=== PATIENT | male | born 1980 | race Two or more races ===

== ENCOUNTER 2019-09-23 13:15 | Emergency (ER) | payer OTHER ==
[~2019-09-23] VITALS: Ht 177.8 cm; Wt 78.0 kg
[2019-09-23 14:01] VITALS: BP 172/124
--- NOTE | 2019-09-23 15:07 | NUR ---
Patient does not wish to proceed with medical care recommended by ( ). Patient given information related to possible complications, up to and including , which could occur as a result of leaving the hospital at this time. Patient verbalizes understanding of risks involved due to leaving against medical advice. Patient has signed AMA form.
== END 2019-09-23 15:08 | disposition left against medical advice (07) ==
LOC: ER 13:19
DX: R18.8 Other ascites (principal); I12.0 Hypertensive chronic kidney disease with stage 5 chronic kidney disease or end stage renal disease; N18.6 End stage renal disease; Z99.2 Dependence on renal dialysis

== ENCOUNTER 2020-04-19 15:34 | Inpatient (IN) | payer MEDICAID, OTHER ==
[~2020-04-19] VITALS: Ht 175.3 cm; Wt 75.9 kg
[2020-04-19] MEDS ORDERED: MORPHINE SULFATE INJ 4 MG/ML DISP.SYRIN ONE ×2 (16:16→18:23)
[2020-04-19] MEDS ORDERED: ONDANSETRON HCL/PF 4 MG/2 ML VIAL ONE ×2 (16:16→18:23)
[2020-04-19] MEDS ORDERED: MORPHINE SULFATE INJ 2 MG/ML DISP.SYRIN IV ONE ×2 (16:30→18:30)
[2020-04-19] MEDS ORDERED: ONDANSETRON HCL/PF 4 MG/2 ML VIAL IVP ONE (16:30)
[2020-04-19 17:32] LABS: ALBUMIN 3.3 g/dL (3.4-5.0); BILIRUBIN,DIRECT 0.3 mg/dL (0.0-0.2); BILIRUBIN,TOTAL 0.8 mg/dL (0.2-1.0); CALCIUM, SERUM 8.9 mg/dL (8.5-10.1); CREATININE 6.6 mg/dL (0.6-1.3); POTASSIUM 3.7 mmol/L (3.5-5.1); TOTAL PROTEIN, SERUM 7.2 g/dL (6.4-8.2)
[2020-04-19] MEDS ORDERED: LOSA100T31 PO (17:59)
[2020-04-19] MEDS ORDERED: HYDR-3972 PO (17:59)
[2020-04-19] MEDS ORDERED: CARV25TA2 PO (17:59)
[2020-04-19 18:14] LABS: BASOPHILS % (AUTO) 0.7 % (0.0-2.0); EOSINOPHILS % (AUTO) 1.9 % (0.0-6.0); HEMATOCRIT 36 % (39-51); HEMOGLOBIN 11.8 g/dL (13.5-17.5); LYMPHOCYTES # (AUTO) 0.2 /CMM (0.8-4.8); LYMPHOCYTES % (AUTO) 22.6 % (20.0-44.0); MEAN CORPUSCULAR HGB CONC 33 g/dl (31.0-36.0); MEAN CORPUSCULAR VOLUME 91 fL (80-96); MONOCYTES # (AUTO) 0.1 /CMM (0.1-1.30); MONOCYTES % (AUTO) 8.8 % (2.0-12.0); NEUTROPHILS # (AUTO) 0.6 /CMM (1.8-8.9); PLATELET COUNT (AUTO) 168 /CMM (150-450)
[2020-04-19] MEDS ORDERED: METRONIDAZOLE 500MG/ NS 100ML 100 ML IV ONE (18:23)
[2020-04-19 18:25] LABS: LYMPHOCYTES % (MANUAL) 30 % (16-48); NEUTROPHILS % (MANUAL) 62 (42-76); WHITE BLOOD COUNT (AUTO) 0.8 K/uL (4.3-11.0)
[2020-04-19 18:26] LABS: EOSINOPHILS % (MANUAL) 2 % (0-4); MONOCYTES % (MANUAL) 6 % (0-11.0)
[2020-04-19] MEDS ORDERED: ONDANSETRON HCL/PF 4 MG/2 ML VIAL IV ONE (18:30)
[2020-04-19] MEDS ORDERED: FLAGYL/NS RTU 500 MG/100 ML PIGGYBACK IV ONE (18:30)
[2020-04-19] MEDS ORDERED: LEVOFLOXACIN 750 MG /D5W 150ML PIGGYBACK IV ONE (18:30)
--- NOTE | 2020-04-19 18:32 | NUR ---
PAGED DR. CATHERINE DUBON.
--- NOTE | 2020-04-19 19:19 | NUR ---
Nurse Knowledge Exchange W/VENKAT Patterson
--- NOTE | 2020-04-19 19:28 | NUR ---
PT STATED HE IS AMBULATORY BUT IS UNABLE TO AMBULATE NOW DUE TO HIS PAIN (ABD PAIN.) PT ON 4L NC SAT 99%. NO ACUTE DISTRESS NOTED. COVID SWAB SENT TO LAB.
[2020-04-19] MEDS ORDERED: LEVOFLOXACIN 750 MG /D5W 150ML 150 ML IV ONE (19:30)
--- NOTE | 2020-04-19 19:49 | NUR ---
PT STATED HE IS STILL IN PAIN AND REQUESTED PAIN MED. AWARE. AWAITING ORDER.
[2020-04-19] MEDS ORDERED: HYDROCODONE/APAP 5/325MG 1 EACH TABLET ONE (19:50)
[2020-04-19] MEDS ORDERED: HYDROCODONE/APAP 5/325MG 1 EACH TABLET PO ONE (20:00)
--- NOTE | 2020-04-19 20:30 | NUR ---
REC'D NEG COVID RESULTS FROM LAB. AWARE
--- NOTE | 2020-04-19 20:36 | NUR ---
BED ASSIGNMENT TELE 321-2
--- NOTE | 2020-04-19 21:01 | NUR ---
REPORT GIVEN FOR SUE
--- NOTE | 2020-04-19 21:16 | NUR ---
PT TRANSFERED PER ACLS PROTOCOL
[2020-04-19 21:40] VITALS: BP_SYST 117; BP_SYST 133; BP_DIAS 51; BP_DIAS 81
[2020-04-19] MEDS ORDERED: HYDROCODONE/APAP 5/325MG 1 EACH TABLET PO PRN (22:00)
--- NOTE | 2020-04-19 22:50 | NUR ---
tele infrastructure analyst initial notes. admit pt from ER via gurney accompanied by ER nurse and tech. Pt is alert oriented, ambulatory , not in any distress noted at this time. DX of Ascites. abdomen distended noted , no n/v . ER nurse told me pt had zofran and norco given . Pt aware where he at and how to used the call light system. Sinus rhythm on tele monitor. Kept him warm and comfortable at all times. will continue monitoring. place call light at reach. Side rails x2 up and bed in low and lock in position.
[2020-04-20] VITALS: BP 135/98
[2020-04-20] MEDS ORDERED: VANCOMYCIN 1 GM in IV D5W 250ml IV ONE (02:00)
[2020-04-20] MEDS ORDERED: MICAFUNGIN SODIUM 100 MG VIAL IV ONE (02:44)
[2020-04-20] MEDS ORDERED: CEFTRIAXONE 1 G VIAL ONE ×2 (02:45→02:49)
[2020-04-20] MEDS ORDERED: VANCOMYCIN 1 GM VIAL ONE (02:45)
[2020-04-20] MEDS: CEFTRIAXONE 2 G in IV D5W 100 ML IV SCH ×2 (02:57→03:17)
[2020-04-20 04:00] VITALS: BP 126/81
[2020-04-20] MEDS: MORPHINE SULFATE INJ 2 MG/ML DISP.SYRIN IV PRN ×3 (04:21→19:54)
[2020-04-20] MEDS: MICAFUNGIN SODIUM 100 MG in IV NS 0.9% 100 ML IV SCH (05:39)
--- NOTE | 2020-04-20 07:13 | NUR ---
INTERNATIONAL REPRESENTATIVE NOTES RECEIVED PATIENT IN BED ALERT AND AWAKE ORIENTED X4. HOB ELEVATED. ON O2 AT 5L/MIN VIA NC TO WELL. ON TELE MONITORING SR: 89. RIGHT WRIST # 20 SL INTACT AND PATENT. BED IN LOWEST POSITION, LOCKED. CALL LIGHT WITHIN REACH. ABLE TO VERBALIZE NEEDS.
[2020-04-20 07:45] LABS: CREATININE 4.7 mg/dL (0.6-1.3)
[2020-04-20] MEDS ORDERED: FEE PK DOSING 1 MIN EA MC ONE (07:47)
[2020-04-20 07:53] LABS: CALCIUM, SERUM 5.1 mg/dL (8.5-10.1); POTASSIUM 2.7 mmol/L (3.5-5.1)
[2020-04-20 07:56] LABS: BASOPHILS % (AUTO) 0.1 % (0.0-2.0); EOSINOPHILS % (AUTO) 0.3 % (0.0-6.0); HEMATOCRIT 24 % (39-51); HEMOGLOBIN 7.8 g/dL (13.5-17.5); LYMPHOCYTES # (AUTO) 0.3 /CMM (0.8-4.8); LYMPHOCYTES % (AUTO) 8.4 % (20.0-44.0); MEAN CORPUSCULAR HGB CONC 33 g/dl (31.0-36.0); MEAN CORPUSCULAR VOLUME 94 fL (80-96); MONOCYTES # (AUTO) 0.3 /CMM (0.1-1.30); MONOCYTES % (AUTO) 6.5 % (2.0-12.0); NEUTROPHILS # (AUTO) 3.4 /CMM (1.8-8.9); NEUTROPHILS % (AUTO) 84.7 % (43.0-81.0); PLATELET COUNT (AUTO) 106 /CMM (150-450); RED BLOOD CELL COUNT(AUTO) 2.53 MIL/uL (4.5-6.0)
[2020-04-20] MEDS: POTASSIUM CHLORIDE 20 MEQ TAB.PRT.SR PO ONE ×2 (08:15→08:32)
[2020-04-20] MEDS: LOSARTAN POTASSIUM 50 MG TABLET PO SCH (08:16)
[2020-04-20] MEDS: CARVEDILOL 12.5 MG TABLET PO SCH ×2 (08:16→21:00)
[2020-04-20] MEDS: HYDROCODONE/APAP 5/325MG 1 EACH TABLET PO PRN ×3 (08:17→15:26)
--- NOTE | 2020-04-20 08:24 | NUR ---
MS RN NOTES PATIENT SPIT OUT POTASSIUM CHLORIDE TABLET. PATIENT STATED HE DOESN'T WANT IT. OFFERED PATIENT TO HAVE IT CRUSHED AND OR MIXED WITH APPLE SAUCE, JELLO OR PUDDING BUT PATIENT REFUSED. Chai RAMIREZ AT BEDSIDE ALSO OFFERED TO MIX IT WITH WATER BUT PATIENT STRONGLY REFUSED. PER DR. ALEXANDER HE WILL FIX IT WITH DIALYSIS.
[2020-04-20] MEDS ORDERED: VANCOMYCIN 500 MG in IV D5W 100 ML IV PRN (08:30)
[2020-04-20] MEDS ORDERED: CARVEDILOL 25 MG TABLET PO SCH (09:00)
--- NOTE | 2020-04-20 09:06 | NUR ---
VEGETABLE THINNER NOTES PATIENT REMAINS COMFORTABLE, SITTING UP IN BED PLAYING GAMES ON HIS CP.
[2020-04-20 09:31] VITALS: BP 122/71
[2020-04-20 09:34] LABS: CALCIUM, SERUM 8.8 mg/dL (8.5-10.1); POTASSIUM 4.5 mmol/L (3.5-5.1)
[2020-04-20 09:36] LABS: CREATININE 8.1 mg/dL (0.6-1.3)
[2020-04-20] MEDS ORDERED: EPOETIN ALFA (10,000 UNIT) 10,000 UNIT/ML VIAL IV ONE (11:00)
[2020-04-20 13:11] LABS: BAND % (MANUAL) 19 % (0.0-5.0); LYMPHOCYTES % (MANUAL) 7 % (16-48); MONOCYTES % (MANUAL) 3 % (0-11.0); MYELOCYTES % 1 % (0-0); NEUTROPHILS % (MANUAL) 70 (42-76)
--- NOTE | 2020-04-20 15:06 | NUR ---
RETREAD BUILDER NOTES PATIENT S/P US GUIDED THORACENTESIS TO RT CHEST 1400ML FLUID OUT. S/P US GUIDED PARACENTESIS TO LLQ ABD 2000ML OUTPUT. SPECIMEN SENT TO LAB.
[2020-04-20] MEDS ORDERED: FILGRASTIM (480 MCG) 480 MCG/1.6 ML VIAL SQ ONE (16:00)
[2020-04-20 16:15] VITALS: BP 112/79
--- NOTE | 2020-04-20 18:27 | NUR ---
DIRECTOR LONG TERM CARE NOTES PATIENT RECEIVING HD AT THIS TIME.
--- NOTE | 2020-04-20 18:31 | NUR ---
GENERAL UTILITY MAINTENANCE REPAIRER NOTES PATIENT CURRENTLY RECEIVING DIALYSIS. NO S/S OF RESPIRATORY DISTRESS. HOB ELEVATED. ON O2 AT 3L/MIN VIA NC WITH SPO2 OF 98%. DENIES ANY C/O PAIN NOR DISCOMFORT AT THIS TIME. LEFT ARM AV FISTULA WITH GOOD BRUIT/THRILL. AMBULATORY WITH STEADY GAIT. PER PAIENT, CAN BREATH A LITTLE BETTER BUT PAIN IS STILL THERE ON HIS ABDOMEN. INSTRUCTED PATIENT TO LOSSEN UP BELT AND REMOVE JEANS AND BOXER DUE TO CONSTRICTION AND GARTER BUT PATIENT STATED IT'S NOT CAUSING IT. BED IN LOWEST POSITION, LOCKED. BED ALARM ON. CALL LIGHT WITHIN REACH. IN NO APPARENT DISTRESS.
[2020-04-20 20:00] VITALS: BP 99/56
--- NOTE | 2020-04-20 20:00 | NUR ---
EDITOR IN CHIEF NEWSPAPER OPENING NOTES RECEIVED PATIENT IN BED, AWAKE, CONSCIOUS, COOPERATIVE, BREATHING AT ROOM AIR, UNLABORED BREATHING, NO SIGNS OF RESPIRATORY DISTRESS, RIGHT HAND #20, AV FISTULA ON LEFT HAND, DIALYSIS ONGOING, COMPLAINS PAIN ON LEFT ABDOMEN, PAIN MED GIVEN, SIDE RAILS UP.
[2020-04-21] VITALS: BP 116/63
[2020-04-21] MEDS: CEFTRIAXONE 2 G in IV D5W 100 ML IV SCH (02:02)
[2020-04-21] MEDS: MICAFUNGIN SODIUM 100 MG in IV NS 0.9% 100 ML IV SCH (03:01)
[2020-04-21] MEDS: HYDROCODONE/APAP 5/325MG 1 EACH TABLET PO PRN ×2 (03:13→09:37)
--- NOTE | 2020-04-21 03:17 | NUR ---
DOPE WORKER NOTES SHICKLEY 5-325 2 TABS GIVEN. BP- 113/74, HR- 98.
--- NOTE | 2020-04-21 03:58 | NUR ---
CLINICAL UNIT COORDINATOR NOTES HEMODIALYSIS OUTPUT IS ZERO. CLEANING ONLY.
[2020-04-21 04:00] VITALS: BP 108/76
--- NOTE | 2020-04-21 06:51 | NUR ---
MEDICAID PLAN COMPLIANCE DIRECTOR CLOSING NOTES ENDORSED PATIENT IN BED, AWAKE, CONSCIOUS, COOPERATIVE, BREATHING AT ROOM AIR, UNLABORED BREATHING, NO SIGNS OF RESPIRATORY DISTRESS, RIGHT HAND #20, NO REDNESS OR INFILTRATION NOTED, AV FISTULA ON LEFT HAND, COMPLAINS PAIN ON LEFT ABDOMEN, PAIN MED GIVEN, SIDE RAILS UP FOR SAFETY, DUE MEDS GIVEN.
--- NOTE | 2020-04-21 07:15 | NUR ---
STUD DRIVER NOTES RECEIVED PATIENT IN BED ALERT AND AWAKE ORIENTED X4. HOB ELEVATED. ON O2 AT 2L/MIN VIA NC TO WELL. ON TELE MONITORING SR: 98. RIGHT WRIST # 20 SL INTACT AND PATENT. BED IN LOWEST POSITION, LOCKED. CALL LIGHT WITHIN REACH. AMBULATORY WITH STABLE GAIT. ABLE TO VERBALIZE NEEDS.
[2020-04-21 08:00] VITALS: BP 116/76
[2020-04-21 08:16] LABS: BASOPHILS % (AUTO) 0.2 % (0.0-2.0); EOSINOPHILS % (AUTO) 0.5 % (0.0-6.0); HEMATOCRIT 30 % (39-51); LYMPHOCYTES # (AUTO) 0.4 /CMM (0.8-4.8); LYMPHOCYTES % (AUTO) 7.8 % (20.0-44.0); MEAN CORPUSCULAR HGB CONC 34 g/dl (31.0-36.0); MEAN CORPUSCULAR VOLUME 93 fL (80-96); MONOCYTES # (AUTO) 0.5 /CMM (0.1-1.30); MONOCYTES % (AUTO) 8.8 % (2.0-12.0); NEUTROPHILS # (AUTO) 4.7 /CMM (1.8-8.9); NEUTROPHILS % (AUTO) 82.7 % (43.0-81.0); PLATELET COUNT (AUTO) 132 /CMM (150-450); RED BLOOD CELL COUNT(AUTO) 3.21 MIL/uL (4.5-6.0); WHITE BLOOD COUNT (AUTO) 5.7 K/uL (4.3-11.0)
[2020-04-21 09:00] VITALS: BP 116/78
[2020-04-21 09:00] LABS: CREATININE 7.1 mg/dL (0.6-1.3); MAGNESIUM 1.9 mg/dL (1.8-2.4); PHOSPHORUS 4.5 mg/dL (2.5-4.9); POTASSIUM 4.5 mmol/L (3.5-5.1)
[2020-04-21] MEDS: LOSARTAN POTASSIUM 50 MG TABLET PO SCH ×2 (09:00→09:38)
[2020-04-21] MEDS: CARVEDILOL 12.5 MG TABLET PO SCH ×2 (09:00→09:38)
--- NOTE | 2020-04-21 10:09 | NUR ---
MS RN NOTES HELD TANIA AND FAB, ANTICIPATING HD.
[2020-04-21] MEDS ORDERED: METOPROLOL TARTRATE 50 MG TABLET PO SCH (12:00)
--- NOTE | 2020-04-21 13:10 | NUR ---
MS RN NOTES PATIENT DOES NOT WANT CT ANGIO DONE DESPITE OF EDUCATION PROVIDED. PER PATIENT, " I JUST WANT MY DIALYSIS AND GO HOME." DR. CUEVAS AND DR. DEL TORO MADE AWARE.
[2020-04-21] MEDS: MORPHINE SULFATE INJ 2 MG/ML DISP.SYRIN IV PRN (15:23)
[2020-04-21] MEDS ORDERED: VANCOMYCIN 1 GM in IV D5W 250 ML IV ONE (16:00)
--- NOTE | 2020-04-21 16:00 | NUR ---
MS RN NOTES PATIENT COMPLETED HD, BLAINE WELL. NO S/S OF COMPLICATIONS. LEFT ARM AV FISTULA WITH GOOD BRUIT/THRILL. DRESSING IN PLACE WITH NO S/S OF BLEEDING. OUTPUT 2000ML.
--- NOTE | 2020-04-21 16:20 | NUR ---
MS RN NOTES PATIENT REFUSED VANCO DESPITE OF EDUCATION GIVEN AND WANTS TO GO HOME.
--- NOTE | 2020-04-21 17:00 | NUR ---
MS RN NOTES PATIENT FOR DISCHARGE. DISCHARGE INSTRUCTIONS AND PACKET GIVEN TO PATIENT. WHILE PROVIDING DISCHARGE INSTRUCTIONS, PATIENT CONTINUED TO PLAY GAMES ON HIS CP. WHEN QUESTIONED PATIENT REGARDING INSTRUCTIONS, PATIENT WAS ABLE TO VERBALIZE UNDERSTANDING OF DISCHARGE INSTRUCTIONS GIVEN AND VERBALIZED THAT HE'S A SMOKER SOMETIMES. IV ACCESS REMOVED WITH CATHETER TIP INTACT. PER PATIENT, HE ALREADY HAS A PRESCRIPTION SCRIPT FOR HIS PAIN MEDS AND WILL GET IT FILLED AT [facility] DUE TO THE AVAILABILITY OF THE MEDICATIONS AT [facility] BUT [facility]. ALL BELONGINGS ACCOUNTED FOR. AMBULATORY WITH STEADY GAIT. PATIENT LEFT IN STABLE CONDITION.
== END 2020-04-21 18:00 | disposition home or self-care (01) ==
LOC: ER 15:37 → TELE 21:01 → MED 04-21 08:42
PROVIDERS: ADMIT Nurse Practitioner Acute Care; ATTEND Hospitalist
PROC: 0W993ZZ Drainage of Right Pleural Cavity, Percutaneous Approach (ICD-10-PCS; principal; 2020-04-20)
PROC: 5A1D70Z Performance of Urinary Filtration, Intermittent, Less than 6 Hours Per Day (ICD-10-PCS; principal; 2020-04-20)
PROC: 0W9G3ZZ Drainage of Peritoneal Cavity, Percutaneous Approach (ICD-10-PCS; principal; 2020-04-20)
DX: K74.60 Unspecified cirrhosis of liver (principal); N18.6 End stage renal disease; I13.2 Hypertensive heart and chronic kidney disease with heart failure and with stage 5 chronic kidney disease, or end stage renal disease; K40.90 Unilateral inguinal hernia, without obstruction or gangrene, not specified as recurrent; R18.8 Other ascites; J90 Pleural effusion, not elsewhere classified; D61.818 Other pancytopenia; D63.1 Anemia in chronic kidney disease; E83.51 Hypocalcemia; E87.6 Hypokalemia; I25.10 Atherosclerotic heart disease of native coronary artery without angina pectoris; I42.9 Cardiomyopathy, unspecified; I31.3 Pericardial effusion (noninflammatory); Z91.14 Patient's other noncompliance with medication regimen; Z99.2 Dependence on renal dialysis; Z91.19 Patient's noncompliance with other medical treatment and regimen; I50.32 Chronic diastolic (congestive) heart failure
CPT/HCPCS: 36415; 71045-TC; 76942-TC; 80048-TC; 80076-TC; 80202-TC; 82140-TC; 83690-TC; 83735-TC; 84100-TC; 85025-TC; 85610-TC; 87081-TC; 87340; 88108-TC; 88305-TC; 88312-TC; 90935-TC; 93307-TC; G0378; J0696; J0885; J1442; J1956; J2248; J2270; J2405; J3370; J7030; J7060

== ENCOUNTER 2020-05-04 21:15 | Inpatient (IN) | payer MEDICAID ==
[~2020-05-04] VITALS: Ht 175.3 cm; Wt 76.7 kg
[~2020-05-04 21:15] MED LIST: CARV25TA2 PO; HYDR-3972 PO; LOSA100T31 PO
[2020-05-04 21:46] LABS: BASOPHILS # (AUTO) 0.1 /CMM (0.0-0.2); BASOPHILS % (AUTO) 0.9 % (0.0-2.0); EOSINOPHILS % (AUTO) 0.9 % (0.0-6.0); HEMATOCRIT 26 % (39-51); HEMOGLOBIN 8.9 g/dL (13.5-17.5); LYMPHOCYTES # (AUTO) 0.8 /CMM (0.8-4.8); LYMPHOCYTES % (AUTO) 8.1 % (20.0-44.0); MEAN CORPUSCULAR HGB CONC 34 g/dl (31.0-36.0); MEAN CORPUSCULAR VOLUME 88 fL (80-96); MONOCYTES # (AUTO) 0.6 /CMM (0.1-1.30); MONOCYTES % (AUTO) 6.4 % (2.0-12.0); NEUTROPHILS # (AUTO) 8.1 /CMM (1.8-8.9); NEUTROPHILS % (AUTO) 83.7 % (43.0-81.0); PLATELET COUNT (AUTO) 262 /CMM (150-450); RED BLOOD CELL COUNT(AUTO) 2.96 MIL/uL (4.5-6.0); WHITE BLOOD COUNT (AUTO) 9.6 K/uL (4.3-11.0)
[2020-05-04] MEDS ORDERED: IV NS 0.9% 1,000 ML BAG IV ONE (22:00)
[2020-05-04] MEDS ORDERED: ONDANSETRON HCL/PF 4 MG/2 ML VIAL IVP ONE (22:00)
[2020-05-04] MEDS ORDERED: MORPHINE SULFATE INJ 2 MG/ML DISP.SYRIN IV ONE (22:00)
[2020-05-04] MEDS ORDERED: ONDANSETRON HCL/PF 4 MG/2 ML VIAL ONE (22:02)
[2020-05-04] MEDS ORDERED: MORPHINE SULFATE INJ 4 MG/ML DISP.SYRIN ONE (22:02)
--- NOTE | 2020-05-04 22:13 | NUR ---
PATIENT CAME TO ER BED 3 C/O MID EPIGASTRIC PAIN AND RIGHT LOWER ABDOMINAL PRESSURE PAIN SINCE LAST WEEK. PATIENT WAS RECENTLY DISCHARGED FROM THE HOSPITAL AFTER A PARACENTESIS PROCEDURE LAST THURSDAY. PATIENT IS AAOX4. NO SOB. BREATHING EVENLY AND UNLABORED ON ROOM AIR. CONNECTED TO MONITOR.
--- NOTE | 2020-05-04 22:16 | NUR ---
PATIENT STATES THAT HE CANNOT PRODUCE URINE.
[2020-05-04] MEDS ORDERED: VANCOMYCIN 1 GM VIAL ONE (22:23)
[2020-05-04] MEDS ORDERED: PIPERACILLIN /TAZOBACTAM 3.375 G VIAL IV ONE (22:23)
[2020-05-04] MEDS ORDERED: VANCOMYCIN 1 GM in IV D5W 250 ML IV ONE (22:30)
[2020-05-04] MEDS ORDERED: PIPERACILLIN /TAZOBACTAM 3.375 G in IV D5W 50 ML IV ONE (22:30)
[2020-05-04] MEDS ORDERED: LIDOCAINE /MPF 1% VIAL 5 ML VIAL ONE (23:10)
--- NOTE | 2020-05-05 00:25 | NUR ---
COVID TEST SAMPLE COLECTED AND SENT TO THE LAB.
[2020-05-05 00:44] LABS: ALBUMIN 2.7 g/dL (3.4-5.0); BILIRUBIN,DIRECT 0.1 mg/dL (0.0-0.2); BILIRUBIN,TOTAL 0.4 mg/dL (0.2-1.0); CALCIUM, SERUM 9.8 mg/dL (8.5-10.1); POTASSIUM 3.3 mmol/L (3.5-5.1); TOTAL PROTEIN, SERUM 7.7 g/dL (6.4-8.2)
[2020-05-05 00:46] LABS: CREATININE 8.8 mg/dL (0.6-1.3)
[2020-05-05] MEDS ORDERED: MORPHINE SULFATE INJ 2 MG/ML DISP.SYRIN IV ONE (01:00)
--- NOTE | 2020-05-05 01:01 | NUR ---
PARACENTESIS FLUID COLLECTED AND SENT TO THE LAB.
[2020-05-05] MEDS ORDERED: MORPHINE SULFATE INJ 4 MG/ML DISP.SYRIN ONE (01:20)
[2020-05-05] MEDS ORDERED: ZOLPIDEM TARTRATE 5 MG TABLET PO PRN (01:30)
[2020-05-05] MEDS ORDERED: MAGNESIUM HYDROXIDE 30 ML UDC PO PRN (01:30)
[2020-05-05] MEDS ORDERED: MAG HYDROX/AL HYDROX/SIMETH 30 ML UDC PO PRN (01:30)
[2020-05-05] MEDS ORDERED: Z GUARD REMEDY 2 OZ OINT TP PRN (01:30)
[2020-05-05] MEDS ORDERED: ONDANSETRON HCL/PF 4 MG/2 ML VIAL IVP PRN (01:30)
[2020-05-05] MEDS ORDERED: ACETAMINOPHEN 325 MG TABLET PO PRN (01:30)
--- NOTE | 2020-05-05 02:02 | NUR ---
NOTIFIED OF HIGH BLOOD PRESSURE. NO MEDICATIONS ORDERED.
--- NOTE | 2020-05-05 02:20 | NUR ---
tele [phone]
--- NOTE | 2020-05-05 02:25 | NUR ---
TRIED CALLING FOR REPORT, STAFF STATES THAT "THE NURSE IS NOT HERE YET, PLEASE CALL BACK IN 5MINUTES."
--- NOTE | 2020-05-05 02:35 | NUR ---
REPORT GIVEN TO MELVIN ROBLEDO FOR SUE.
--- NOTE | 2020-05-05 02:50 | NUR ---
ADMISSION NOTE PATIENT ADMITTED FROM ER FOR DX SEPSIS; ESRD TO [facility] DR. GTZ. NEW ORDERS RECIEVED PT [id number] ORIENTED TO ROOM. PT AMUBLATORY. REPORTS PAIN TO ABD RATED 8/10. PT CC WAS ABD PAIN FOR THE LAST WEEK AFTER RECIVING PARACENTSIS ALMOST A WEEK AGO. BED DOWN LOCKED SRX2 VERBALIZED UNDERSTANDING TO CALL FOR ASSISTANCE NEEDED. ADMISSION ASSESSMENT PERFORED.
--- NOTE | 2020-05-05 02:51 | NUR ---
Rico wright in ED - 05/05/20 at 0301 by ARNALDO REPORT GIVEN TO MELVIN ROLBEDO FOR SUE.
--- NOTE | 2020-05-05 02:51 | NUR ---
PATIENT TAKEN UP TO ASSIGNED ROOM.
[2020-05-05 03:00] VITALS: BP 149/111
[2020-05-05] MEDS: HYDROCODONE/APAP 5/325MG 1 EACH TABLET PO PRN ×2 (03:13→09:04)
--- NOTE | 2020-05-05 03:24 | NUR ---
ASKED DR. GTZ TO CLARIFY MORPHINE ORDER. NEW ORDERS RECIEVED.
[2020-05-05] MEDS: MORPHINE SULFATE INJ 4 MG/ML DISP.SYRIN IV PRN ×4 (07:40→21:40)
[2020-05-05 08:00] VITALS: BP_SYST 150; BP_SYST 156; BP_DIAS 100
[2020-05-05] MEDS ORDERED: FEE PK DOSING 1 MIN EA MC ONE (08:12)
[2020-05-05] MEDS ORDERED: DIATR MEGLU/DIATRIZOATE SODIUM 120 ML BOTTLE (GASTROGRAPHIN) ONE (08:13)
[2020-05-05] MEDS ORDERED: VANCOMYCIN 500 MG in IV D5W 100 ML IV PRN (08:30)
[2020-05-05] MEDS ORDERED: IOHEXOL-300 100 ML VIAL IV ONE (08:41)
[2020-05-05] MEDS ORDERED: IV NS 0.9% 250 ML IV ONE (08:42)
--- NOTE | 2020-05-05 08:58 | NUR ---
PATIENT REFUSED ORAL CONTRAST FOR CT ABDOMEN SCAN. VENKAT WOODRUFF AWARED. CT ABDOMEN WITH IV CONTRAST DONE @0850. DIALYSIS NEEDED TO BE DONE WITHIN 24 HOURS, AND SCHEDULED TODAY PER VENKAT WOODRUFF.
--- NOTE | 2020-05-05 09:45 | NUR ---
CONTACTED DR. CHAND/RADIOLOGIST GAS STATION OPERATOR. PER DR. CHAND THE PROCEDURE WILL BE DONE LATER IN THE AFTERNOON. HE WILL CONTACT PRIOR TO HIS ARRIVING. KACY/RN WAS INFORMED.
[2020-05-05] MEDS ORDERED: HYDROCODONE/APAP 10/325MG 1 EA TABLET PO PRN (10:30)
[2020-05-05] MEDS: LEVOFLOXACIN 250 MG /D5W 50 ML 250 MG in PREMIX 1 EA IV SCH (10:56)
[2020-05-05] MEDS: METRONIDAZOLE 500MG/ NS 100ML 500 MG in PREMIX 1 EA IV SCH ×2 (10:57→17:31)
[2020-05-05] MEDS ORDERED: EPOETIN ALFA (10,000 UNIT) 10,000 UNIT/ML VIAL IV ONE (12:00)
[2020-05-05 16:00] VITALS: BP 146/92
--- NOTE | 2020-05-05 16:11 | NUR ---
RN NOTES-- US GUIDED PARACENTESIS DONE TO LLQ. 725CC OUT. PER DR. CAMARILLO, NO NEED FOR CYTOLOGY.
--- NOTE | 2020-05-05 18:19 | NUR ---
RN END OF SHIFT SUMMARY PT IS A/OX4, AFEBRILE. NON-MONITORED, VSS. TOLERATING RA. RESPIRATIONS ARE EVEN AND UNLABORED, NOT IN ANY ACUTE DISTRESS NOTED. PAIN TO RLQ MANAGED BY MORPHINE 4MG PRN AND NORCO 10/325 PRN. DENIES ANY SOB, N/V. +FLATUS, NO BM DURING SHIFT. PT IS ANURIC. SCHEDULED FOR HD TONIGHT. AV SHUNT TO LEFT ARM. PIV TO RIGHT WRIST TKO. ON IV ABX W/ NO ASE NOTED. ALL NEEDS MET AND RENDERED. SAFETY MEASURES ARE IN PLACE. CALL LIGHT IS LEFT WITHIN REACH. WILL MONITOR AND CONTINUE POC.
[2020-05-05] MEDS: HYDROCODONE/APAP 10/325MG 1 EA TABLET PO PRN (18:48)
--- NOTE | 2020-05-05 19:30 | NUR ---
RN NOTE RECEIVED PT IN BED, AO X4, NO S/SX OF ACUTE DISTRESS AT THIS TIME. PATIENT'S BREATHING IS EVEN AND UNLABORED. SATURATING >95% ON ROOM AIR. NOTED IV SITE ON R WRIST G18, PATENT AND FLUSHING WELL, NO S/S OF INFECTION OR INFILTRATION. NOTED LEFT ARM FISTULA, HEMODIALYSIS ONGOING. NO SKIN ISSUES NOTED, PATIENT AMBULATORY. SAFETY MEASURES IMPLEMENTED PER PROTOCOL. CALL LIGHT WITHIN REACH OF THE PATIENT. WILL CONTINUE TO MONITOR AND REASSESS FOR ANY CHANGES.
[2020-05-05 20:00] VITALS: BP 169/109
--- NOTE | 2020-05-05 20:00 | NUR ---
RN NOTE TELEPHONE CALL RECEIVED FROM MARIA LUISA OF [facility], STATING THEY RECEIVED URINE SPECIMEN BUT DO NOT SEE AN MD ORDER ON FILE. CHECKED AND VERIFIED FROM EMR, ACTIVE ORDER FOR URINALYSIS PROFILE AND URINE CULTURE NOTED. CALLED BACK CLINICAL LAB, SPOKE WITH ANGEL, VERIFIED THAT MARIA LUISA WAS NOW ABLE TO SEE THE ORDER. .
[2020-05-05 21:11] LABS: APPEARANCE,URINE CLEAR (CLEAR); BILIRUBIN,URINE NEGATIVE (NEGATIVE); BLOOD, URINE LARGE Ery/uL (NEGATIVE); COLOR,URINE YELLOW (YELLOW); KETONES,URINE NEGATIVE (NEGATIVE); LEUKOCYTE ESTERASE ,URINE NEGATIVE (NEGATIVE); NITRITE, URINE NEGATIVE (NEGATIVE); PROTEIN,URINE NEGATIVE (NEGATIVE); UGLUCOSE NEGATIVE (NEGATIVE); UROBILINOGEN,URINE 0.2 EU/dL (0.2)
[2020-05-05 21:21] LABS: BACTERIA,URINE Few /HPF (None Seen); RBC,URINE 51-80 /HPF (0-2); SQUAMOUS EPITHELIAL CELL,UR Few /HPF (None Seen); URIC ACID CRYSTALS,URINE Few /HPF (None Seen); WBC,URINE 0-2 /HPF (0-3)
--- NOTE | 2020-05-05 22:00 | NUR ---
RN NOTE NOTED PATIENT'S BP 161/107. PER NEUROLOGICAL SURGERY TEACHER, PATIENT'S BP REMAINED HIGH AND DID NOT DECREASE TOWARDS THE END OF THE HD SESSION. REPORTED TO DR BUCHANAN. AWAITING FOR ORDERS.
--- NOTE | 2020-05-05 22:17 | NUR ---
RN NOTE NOTED END OF HD SESSION, 4 LITERS OF FLUID WERE REMOVED PER WAGE AND SALARY SPECIALIST. PROCESS SAFETY MANAGER MADE AWARE. BLOOD PRESSURE WAS RECHECKED AND REVEALED 148/92.
[2020-05-06] MEDS: HYDROCODONE/APAP 5/325MG 1 EACH TABLET PO PRN ×2 (00:57→20:12)
[2020-05-06] MEDS: METRONIDAZOLE 500MG/ NS 100ML 500 MG in PREMIX 1 EA IV SCH ×3 (02:04→17:19)
[2020-05-06] MEDS ORDERED: CLONIDINE HCL 0.1 MG TABLET PO PRN (03:00)
[2020-05-06] MEDS: MORPHINE SULFATE INJ 4 MG/ML DISP.SYRIN IV PRN ×2 (03:37→11:35)
[2020-05-06 04:00] VITALS: BP 149/90
[2020-05-06 07:30] LABS: BASOPHILS % (AUTO) 0.6 % (0.0-2.0); EOSINOPHILS % (AUTO) 1.1 % (0.0-6.0); HEMATOCRIT 27 % (39-51); HEMOGLOBIN 8.9 g/dL (13.5-17.5); LYMPHOCYTES # (AUTO) 0.6 /CMM (0.8-4.8); LYMPHOCYTES % (AUTO) 8.1 % (20.0-44.0); MEAN CORPUSCULAR HGB CONC 33 g/dl (31.0-36.0); MEAN CORPUSCULAR VOLUME 91 fL (80-96); MONOCYTES # (AUTO) 0.4 /CMM (0.1-1.30); MONOCYTES % (AUTO) 6.2 % (2.0-12.0); NEUTROPHILS # (AUTO) 5.9 /CMM (1.8-8.9); PLATELET COUNT (AUTO) 222 /CMM (150-450); RED BLOOD CELL COUNT(AUTO) 2.99 MIL/uL (4.5-6.0)
[2020-05-06 07:44] LABS: ALBUMIN 2.6 g/dL (3.4-5.0); BILIRUBIN,TOTAL 0.5 mg/dL (0.2-1.0); CALCIUM, SERUM 9.3 mg/dL (8.5-10.1); CREATININE 7.4 mg/dL (0.6-1.3); MAGNESIUM 2.3 mg/dL (1.8-2.4); PHOSPHORUS 4.6 mg/dL (2.5-4.9); POTASSIUM 4.2 mmol/L (3.5-5.1); TOTAL PROTEIN, SERUM 7.4 g/dL (6.4-8.2)
--- NOTE | 2020-05-06 07:54 | NUR ---
RN MS [facility] NOTES PATIENT IS AWAKE AND ALERT A/O X 4. WITH NO SIGNS OF DISTRESS IN ROOM AIR. IV ON THE R WRIST #18G INTACT SL AND LEFT UPPER ARM FISTULA. NO COMPLAIN OF PAIN AT THIS MOMENT. BED IS IN LOW POSITION WITH SIDE RAILS UP X 2 FOR SAFETY. CALL LIGHT WITHIN REACH. WILL CONTINUE TO MONITOR.
[2020-05-06 08:00] VITALS: BP 159/97
[2020-05-06] MEDS: HYDROCODONE/APAP 10/325MG 1 EA TABLET PO PRN ×2 (08:19→17:21)
[2020-05-06] MEDS: CARVEDILOL 12.5 MG TABLET PO SCH ×2 (08:19→17:07)
[2020-05-06] MEDS: LOSARTAN POTASSIUM 50 MG TABLET PO SCH ×2 (08:19→17:06)
--- NOTE | 2020-05-06 08:19 | NUR ---
PATIENT C/O ABDOMINAL PAIN 8/10 PAIN SCALE, GAVE NORCO PRN SCHEDULED. WILL CONTINUE TO MONITOR.
[2020-05-06] MEDS: PANTOPRAZOLE 40 MG TABLET.DR PO SCH (11:07)
[2020-05-06] MEDS: LEVOFLOXACIN 250 MG /D5W 50 ML 250 MG in PREMIX 1 EA IV SCH (11:08)
--- NOTE | 2020-05-06 11:35 | NUR ---
PATIENT C/O ABDOMINAL PAIN 9/10 PAIN SCALE, GAVE MORPHINE IV PRN SCHEDULED. VITALS ARE STABLE. WILL CONTINUE TO MONITOR.
[2020-05-06 12:00] VITALS: BP 114/72
[2020-05-06 16:00] VITALS: BP 120/84
--- NOTE | 2020-05-06 17:21 | NUR ---
PATIENT C/O ABDOMINAL PAIN 9/10 PAIN SCALE, GAVE NORCO PO PRN SCHEDULED. WILL CONTINUE TO MONITOR
--- NOTE | 2020-05-06 18:50 | NUR ---
RN MS CLOSED NOTES PATIENT IS AWAKE AND ALERT A/O X 4. WITH NO SIGNS OF DISTRESS IN ROOM AIR. IV ON THE R WRIST #18G INTACT SL AND LEFT UPPER ARM FISTULA. NO COMPLAIN OF PAIN AT THIS MOMENT. PATIENT REMAINED STABLE THROUGH OUT OF SHIFT. PATIENT KEPT CLEAN AND DRY. ALL NEEDS, CARE, TREATMENT AND MEDICATIONS ADMINISTERED ANTICIPATED PER ORDER. SAFETY MEASURE APPLIED, BED IS IN LOW POSITION WITH SIDE RAILS UP X 2 FOR SAFETY. CALL LIGHT WITHIN REACH. WILL ENDORSE TO THE NEXT PRODUCTION SUPERINTENDENT HYDRO.
[2020-05-06 20:00] VITALS: BP 126/81
--- NOTE | 2020-05-06 20:00 | NUR ---
MS/RN OPENING NOTES RECEIVED PATIENT IN BED, AWAKE, ALERT X3, ABLE TO VERBALIZE NEEDS, ON THE PHONE, REQUESTED FOR SOME SNACKS, REPORTED WITH 7/10 PAIN IN MID ABDOMEN, HAD NO BM FOR 4 DAYS BUT OFFERED NEEDED MOM FOR CONSTIPATION BUT REFUSED AT THIS TIME, EDUCATED ON PAIN MEDICATION USE AND SIDE EFFECTS AND MADE AWAR, VERBALIZED UNDERSTANDING, ROOM AIR RESPIRATION EVEN AND UNLABORED, NEED SUPERVISION FOR SAFETY, USES CALL LIGHTS NAD INSTRUCT TO CALL FOR ASSISTANCE, IV SITE PATENT ON KVO , IV SITE ON RIGHT WRIST. WILL MONITOR.
[2020-05-06 20:32] VITALS: BP 126/81
[2020-05-07] MEDS: METRONIDAZOLE 500MG/ NS 100ML 500 MG in PREMIX 1 EA IV SCH ×2 (01:08→10:41)
[2020-05-07 04:00] VITALS: BP 126/81
[2020-05-07] MEDS: HYDROCODONE/APAP 10/325MG 1 EA TABLET PO PRN ×2 (05:59→17:14)
--- NOTE | 2020-05-07 05:59 | NUR ---
MS/RN NOTES PATIENT IN PAIN. VERBALIZED SEVERE PAIN IN RIGHT ABDOMEN, ALERT, ORIENTED X3, ABLE TO VERBALIZE NEEDS,BREATHING EVEN AND UNLABORED, NORCO 10-325 MG PO ADMINISTERED ORAL, TOLERATED WELL. HAD SNACK AND TO MONITOR PAIN REFLIEF AND EFFECTIVENESS.
--- NOTE | 2020-05-07 06:30 | NUR ---
314-1 MS/RN NOTES PATIENT ALERT X3, ABLE TO VERBALIZE NEEDS, ATTENDED TO ALL NEEDS, ABLE TO SLEEP AND HAVE SOME REQUESTS NOT TO BE AWAKEN UNTIL 0630 BY LAB, PAIN MANAGED AND RELIEVED, IV ANTIBIOTC ADMINISTERED, RESPIRATIONS EVEN AND UNLABORED, BED LOCKED, CALL LIGHTS WITHIN REACH. WILL ENDORSE TO AM RN FOR SUE.
[2020-05-07 06:59] LABS: BASOPHILS # (AUTO) 0.1 /CMM (0.0-0.2); BASOPHILS % (AUTO) 1.1 % (0.0-2.0); HEMATOCRIT 30 % (39-51); HEMOGLOBIN 9.6 g/dL (13.5-17.5); LYMPHOCYTES # (AUTO) 0.7 /CMM (0.8-4.8); LYMPHOCYTES % (AUTO) 12.8 % (20.0-44.0); MEAN CORPUSCULAR HGB CONC 32 g/dl (31.0-36.0); MEAN CORPUSCULAR VOLUME 93 fL (80-96); MONOCYTES # (AUTO) 0.5 /CMM (0.1-1.30); MONOCYTES % (AUTO) 9.3 % (2.0-12.0); NEUTROPHILS # (AUTO) 3.8 /CMM (1.8-8.9); NEUTROPHILS % (AUTO) 73.8 % (43.0-81.0); PLATELET COUNT (AUTO) 221 /CMM (150-450); RED BLOOD CELL COUNT(AUTO) 3.25 MIL/uL (4.5-6.0); WHITE BLOOD COUNT (AUTO) 5.2 K/uL (4.3-11.0)
[2020-05-07 07:03] LABS: CALCIUM, SERUM 8.9 mg/dL (8.5-10.1); MAGNESIUM 2.3 mg/dL (1.8-2.4); PHOSPHORUS 6.2 mg/dL (2.5-4.9); POTASSIUM 3.9 mmol/L (3.5-5.1)
[2020-05-07 07:13] LABS: CREATININE 9.6 mg/dL (0.6-1.3)
[2020-05-07 08:08] VITALS: BP 124/87
[2020-05-07] MEDS: CARVEDILOL 12.5 MG TABLET PO SCH ×2 (08:49→17:13)
[2020-05-07] MEDS: LOSARTAN POTASSIUM 50 MG TABLET PO SCH ×2 (08:49→17:16)
[2020-05-07] MEDS: PANTOPRAZOLE 40 MG TABLET.DR PO SCH (08:50)
[2020-05-07] MEDS: LEVOFLOXACIN 250 MG /D5W 50 ML 250 MG in PREMIX 1 EA IV SCH (11:38)
[2020-05-07 12:00] VITALS: BP 124/87
[2020-05-07] MEDS ORDERED: NALOXONE PREFILLED SYRINGE 2 MG/2 ML SYRINGE IV ONE (14:00)
[2020-05-07] MEDS ORDERED: MIDAZOLAM HCL 5MG/ML VIAL 25 MG/5 ML VIAL IV ONE (14:00)
[2020-05-07] MEDS ORDERED: FENTANYL PF 250MCG/5ML AMPUL IV ONE (14:00)
[2020-05-07 16:37] VITALS: BP 123/75
[2020-05-07 17:16] VITALS: BP 123/75
[2020-05-07] MEDS ORDERED: METRONIDAZOLE 500 MG TABLET PO SCH (18:00)
--- NOTE | 2020-05-07 18:50 | NUR ---
RN MS CLOSED NOTES PATIENT IS AWAKE AND ALERT A/O X 4. WITH NO SIGNS OF DISTRESS IN ROOM AIR. IV ON THE R WRIST #18G INTACT SL AND LEFT UPPER ARM FISTULA. NO COMPLAIN OF PAIN AT THIS MOMENT. PATIENT KEPT CLEAN AND DRY. ALL NEEDS, CARE, TREATMENT AND MEDICATIONS ADMINISTERED ANTICIPATED PER ORDER. SAFETY MEASURES ARE APPLIED, BED IS IN LOW POSITION WITH SIDE RAILS UP X 2 FOR SAFETY. CALL LIGHT WITHIN REACH. WILL ENDORSE TO THE NEXT ASSEMBLY LINE BRAZER.
--- NOTE | 2020-05-07 19:35 | NUR ---
MS RN OPENING NOTE: Received patient from morning nurse. Patient sitting on side of bed with pants and t shirt on. Patient is alert and oriented x 4. Patient stated he wanted to go home. Explained to the patient the risk and consequences in leaving against medical advice and the benefits of continued treatment and hospitalization. Patient still wanted to go home despite explaining risk and benefits.
--- NOTE | 2020-05-07 20:00 | NUR ---
MS RN NOTE: Patient stated he wanted to go home. Explained to the patient the risk and consequences in leaving against medical advice and the benefits of continued treatment and hospitalization. Patient still wanted to go home despite explaining risk and benefits. Made Charge nurse and MD aware of patient's decision. Patient ambulates with steady gate, armband removed, IV access removed, patient signed AMA paperwork. Patient stated he was going to get Uber home. Walked patient out of the Hospital.
== END 2020-05-07 20:00 | disposition left against medical advice (07) | DRG 720 ==
LOC: ER 21:17 → TELE 05-05 02:34 → MED 05-05 08:42
PROVIDERS: ADMIT Student in an Organized Health Care Education/Training Program; ATTEND Student in an Organized Health Care Education/Training Program
PROC: 0W9G3ZZ Drainage of Peritoneal Cavity, Percutaneous Approach (ICD-10-PCS; principal; 2020-05-05)
PROC: 5A1D70Z Performance of Urinary Filtration, Intermittent, Less than 6 Hours Per Day (ICD-10-PCS; principal; 2020-05-05)
PROC: 0W9J3ZZ Drainage of Pelvic Cavity, Percutaneous Approach (ICD-10-PCS; 2020-05-07)
DX: A41.9 Sepsis, unspecified organism (principal); K57.20 Diverticulitis of large intestine with perforation and abscess without bleeding; J15.9 Unspecified bacterial pneumonia; I13.2 Hypertensive heart and chronic kidney disease with heart failure and with stage 5 chronic kidney disease, or end stage renal disease; N18.6 End stage renal disease; K74.60 Unspecified cirrhosis of liver; D64.9 Anemia, unspecified; I42.9 Cardiomyopathy, unspecified; Z99.2 Dependence on renal dialysis; N39.0 Urinary tract infection, site not specified; R18.8 Other ascites; I31.3 Pericardial effusion (noninflammatory); J90 Pleural effusion, not elsewhere classified; K65.1 Peritoneal abscess; I50.22 Chronic systolic (congestive) heart failure; B96.89 Other specified bacterial agents as the cause of diseases classified elsewhere; Z91.19 Patient's noncompliance with other medical treatment and regimen
CPT/HCPCS: 36415; 49083; 71045-TC; 74160-TC; 75989; 75989-TC; 76942-TC; 80048-TC; 80053-TC; 80076-TC; 81000-TC; 83605-TC; 83735-TC; 84100-TC; 84484-TC; 85025-TC; 85730-TC; 86706; 87040-TC; 87070-TC; 87081-TC; 87086-TC; 87186-TC; 87340; 89051-TC; 90935-TC; A4216; G0378; J0885; J1956; J2250; J2270; J2310; J2405; J2543; J3010; J3370; J3490; J7030; J7040; J7050; J7060; Q9963; Q9967

== ENCOUNTER 2020-08-08 11:04 | Emergency (ER) | payer MEDICAID ==
[~2020-08-08] VITALS: Ht 172.7 cm; Wt 80.7 kg
[2020-08-08 11:15] VITALS: BP 177/116
--- NOTE | 2020-08-08 11:56 | NUR ---
DERMADOND APPLIED TO AFFECTED AREA ON NOSE. BLEEDING STOPPED.
--- NOTE | 2020-08-08 12:00 | NUR ---
Patient discharged to home in stable condition. Written and verbal after care instructions given. Patient verbalizes understanding of instruction.
== END 2020-08-08 12:29 | disposition home or self-care (01) ==
LOC: ER 11:14
DX: S01.21XA Laceration without foreign body of nose, initial encounter (principal); I10 Essential (primary) hypertension; Z99.2 Dependence on renal dialysis; Z90.89 Acquired absence of other organs; Z98.890 Other specified postprocedural states; Z60.2 Problems related to living alone; Z79.899 Other long term (current) drug therapy; W26.8XXA Contact with other sharp object(s), not elsewhere classified, initial encounter; Y93.89 Activity, other specified; Y92.89 Other specified places as the place of occurrence of the external cause; Y99.8 Other external cause status

== ENCOUNTER 2020-10-20 19:06 | Inpatient (IN) | payer MEDICAID ==
[~2020-10-20] VITALS: Ht 172.7 cm; Wt 86.6 kg
--- NOTE | 2020-10-20 19:11 | NUR ---
PT AAOX4. AMBULATORY WITH STEADY GAIT. BIBSELF C/O BLE SWELLING X1 MONTH.
--- NOTE | 2020-10-20 20:16 | NUR ---
LINE INITIATED RH 20G (PER PT'S REQUEST), BLOOD COLLECTED, SENT TO LAB.
[2020-10-20 20:24] LABS: BASOPHILS % (AUTO) 0.4 % (0.0-2.0); EOSINOPHILS % (AUTO) 3.9 % (0.0-6.0); HEMATOCRIT 33 % (39-51); HEMOGLOBIN 11.3 g/dL (13.5-17.5); LYMPHOCYTES # (AUTO) 0.7 /CMM (0.8-4.8); LYMPHOCYTES % (AUTO) 11.2 % (20.0-44.0); MEAN CORPUSCULAR HGB CONC 34 g/dl (31.0-36.0); MEAN CORPUSCULAR VOLUME 101 fL (80-96); MONOCYTES # (AUTO) 0.4 /CMM (0.1-1.30); MONOCYTES % (AUTO) 5.9 % (2.0-12.0); NEUTROPHILS # (AUTO) 4.8 /CMM (1.8-8.9); NEUTROPHILS % (AUTO) 78.6 % (43.0-81.0); PLATELET COUNT (AUTO) 155 /CMM (150-450); RED BLOOD CELL COUNT(AUTO) 3.32 MIL/uL (4.5-6.0); WHITE BLOOD COUNT (AUTO) 6.1 K/uL (4.3-11.0)
[2020-10-20 20:54] LABS: ALBUMIN 3.6 g/dL (3.4-5.0); BILIRUBIN,DIRECT 0.3 mg/dL (0.0-0.2); BILIRUBIN,TOTAL 0.6 mg/dL (0.2-1.0); CALCIUM, SERUM 9.4 mg/dL (8.5-10.1); POTASSIUM 3.3 mmol/L (3.5-5.1); TOTAL PROTEIN, SERUM 8.4 g/dL (6.4-8.2)
[2020-10-20 20:56] LABS: CREATININE 7.7 mg/dL (0.6-1.3)
--- NOTE | 2020-10-20 21:29 | NUR ---
SHYID SWABBED, SENT TO LAB.
--- NOTE | 2020-10-20 22:16 | NUR ---
DR. JERICA ZAMARRIPA
--- NOTE | 2020-10-20 22:49 | NUR ---
VESNA MO SPEAKING WITH DR. ALEXANDER
--- NOTE | 2020-10-21 01:34 | NUR ---
PT NOTED ASLEEP, PROVIDED WITH MORE BLANKETS.
[2020-10-21] MEDS ORDERED: HYDROCODONE/APAP 5/325MG TABLET PO PRN (03:00)
[2020-10-21] MEDS ORDERED: ONDANSETRON HCL/PF 4 MG/2 ML VIAL IVP PRN (03:00)
[2020-10-21] MEDS ORDERED: LORAZEPAM INJ 2 MG/ML VIAL IV PRN (03:00)
[2020-10-21] MEDS ORDERED: ACETAMINOPHEN 325 MG TABLET PO PRN (03:00)
[2020-10-21] MEDS ORDERED: LOSARTAN POTASSIUM 25 MG TABLET ONE (03:12)
[2020-10-21] MEDS ORDERED: CARVEDILOL 12.5 MG TABLET ONE (03:12)
[2020-10-21] MEDS: LOSARTAN POTASSIUM 50 MG TABLET PO SCH ×3 (03:18→16:49)
[2020-10-21] MEDS: CARVEDILOL 12.5 MG TABLET PO SCH ×3 (03:19→16:49)
--- NOTE | 2020-10-21 05:18 | NUR ---
BED ASSIGNMENT 321-1
[2020-10-21 05:37] LABS: BASOPHILS # (AUTO) 0.1 /CMM (0.0-0.2); BASOPHILS % (AUTO) 1.2 % (0.0-2.0); EOSINOPHILS % (AUTO) 2.8 % (0.0-6.0); HEMATOCRIT 32 % (39-51); HEMOGLOBIN 10.6 g/dL (13.5-17.5); LYMPHOCYTES # (AUTO) 0.4 /CMM (0.8-4.8); LYMPHOCYTES % (AUTO) 9.7 % (20.0-44.0); MEAN CORPUSCULAR HGB CONC 34 g/dl (31.0-36.0); MEAN CORPUSCULAR VOLUME 100 fL (80-96); MONOCYTES # (AUTO) 0.2 /CMM (0.1-1.30); MONOCYTES % (AUTO) 5.2 % (2.0-12.0); NEUTROPHILS # (AUTO) 3.5 /CMM (1.8-8.9); NEUTROPHILS % (AUTO) 81.1 % (43.0-81.0); PLATELET COUNT (AUTO) 128 /CMM (150-450); RED BLOOD CELL COUNT(AUTO) 3.15 MIL/uL (4.5-6.0); WHITE BLOOD COUNT (AUTO) 4.4 K/uL (4.3-11.0)
--- NOTE | 2020-10-21 05:52 | NUR ---
REPORT GIVEN TO TEE ROBLEDO FOR SUE
[2020-10-21 05:54] LABS: ALBUMIN 3.2 g/dL (3.4-5.0); BILIRUBIN,TOTAL 0.8 mg/dL (0.2-1.0); PHOSPHORUS 4.2 mg/dL (2.5-4.9); POTASSIUM 3.5 mmol/L (3.5-5.1); TOTAL PROTEIN, SERUM 7.4 g/dL (6.4-8.2)
[2020-10-21 05:56] LABS: CREATININE 8.6 mg/dL (0.6-1.3)
[2020-10-21 06:08] LABS: THYROID STIMULATING HORMONE 2.53 uIU/mL (0.358-3.74)
--- NOTE | 2020-10-21 07:02 | NUR ---
PT TRANSFERED PER ACLS PROTOCOL
[2020-10-21] MEDS: PANTOPRAZOLE 40 MG TABLET.DR PO SCH (07:37)
--- NOTE | 2020-10-21 07:59 | NUR ---
MS/RN OPENING NOTE RECEIVED PATIENT FROM ER NURSE. PATIENT A/O X4. PATIENT ON TELEMONITOR. NO ACUTE DISTRESS NOTED AT THIS TIME. OXYGEN 2L/MIN VIA NASAL CANNULA ON, TOLERATING WELL. RIGHT HAND # 20 INTACT AND PATENT. SAFETY MEASURES IN PLACE, BED LOCKED AND IN LOWEST POSITION, CALL LIGHT WITHIN REACH. WILL CONTINUE TO MONITOR AND ENSURE SAFETY.
[2020-10-21 08:00] VITALS: BP 129/86
[2020-10-21] MEDS: DOCUSATE SODIUM 100 MG CAPSULE PO SCH ×2 (09:00→16:48)
[2020-10-21] MEDS ORDERED: EPOETIN ALFA (10,000 UNIT) 10,000 UNIT/ML VIAL IV ONE (09:00)
[2020-10-21] MEDS: VIT B CMPLX 3/FA/VIT C/BIOTIN 1 TAB TABLET PO SCH (09:25)
[2020-10-21] MEDS: FOLIC ACID 1 MG TABLET PO SCH (09:25)
[2020-10-21] MEDS: ASPIRIN 81 MG TAB.CHEW PO SCH (09:25)
[2020-10-21] MEDS: THIAMINE HCL 100 MG TABLET PO SCH (09:25)
[2020-10-21] MEDS: MORPHINE SULFATE INJ 2 MG/ML DISP.SYRIN IV PRN ×2 (09:39→15:45)
--- NOTE | 2020-10-21 10:20 | NUR ---
MS/RN NOTE DIALYSIS WAS STARTED AT BEDSIDE.
--- NOTE | 2020-10-21 10:26 | NUR ---
Notified VENKAT Arreola at ext. [phone] that US Thoracencentesis routine order will be done tomorrow as per director zone IR Dr. Herrera. Patient is undergoing dialysis so US Abdomen will be done in a few hours.
--- NOTE | 2020-10-21 12:05 | NUR ---
MS/RN NOTE DIALYSIS WAS COMPLETED. VITALS SIGNS WITHIN NORMAL LEVEL. NO ACUTE DISTRESS NOTED. TOTAL OUTPUT PER DIALYSIS NURSE 2L.
--- NOTE | 2020-10-21 14:29 | NUR ---
PRELIMINARY REPORT OF ECHOCARDIOGRAM SHOWED EF 45-50% WITH SMALL TO MODERATE PERICARDIAL EFFUSION AND SMALL PLEURAL EFFUSION. ADVISED VENKAT KUO.
[2020-10-21 16:00] VITALS: BP 105/52
--- NOTE | 2020-10-21 19:01 | NUR ---
MS/RN CLOSING NOTE PATIENT A/O X4. PATIENT ON TELEMONITOR. NO ACUTE DISTRESS NOTED AT THIS TIME. OXYGEN 2L/MIN VIA NASAL CANNULA ON, TOLERATING WELL. RIGHT HAND # 20 INTACT AND PATENT. ALL NEEDS MET THROUGHOUT THE SHIFT. SAFETY MEASURES IN PLACE, BED LOCKED AND IN LOWEST POSITION, CALL LIGHT WITHIN REACH. WILL ENDORSE TO BUTTONHOLE MACHINE OPERATOR.
[2020-10-21 20:00] VITALS: BP 115/65
[2020-10-22] VITALS: BP 109/82
--- NOTE | 2020-10-22 02:08 | NUR ---
Pt c/o abdominal pain 05/14. [place] 5/325 mg po given as ordered. Will continue to monitor.
--- NOTE | 2020-10-22 03:20 | NUR ---
Post 1 hr [place] PRN effective. TX 0/10. Pt asleep easy to arouse. Will continue to monitor.
[2020-10-22 04:00] VITALS: BP_SYST 73
--- NOTE | 2020-10-22 07:30 | NUR ---
MAKE UP OPERATOR NOTES PT IN BED,AWAKE, ALERT AND ORIENTED, NO COMPLAINT AT THIS TIME, PT FOR THORACENTESIS TODAY, PT AWARE, CONSENT GIVEN.
[2020-10-22] MEDS: ASPIRIN 81 MG TAB.CHEW PO SCH ×2 (08:20→10:25)
--- NOTE | 2020-10-22 10:00 | NUR ---
m/s cloth printing inspector: notes s/p thoracentesis and obtained 2100 ml of clear yellow fluid aspirated by dr. butler. cxr stat ordered. pt tolerated procedure. will continue to monitor.
[2020-10-22] MEDS: VIT B CMPLX 3/FA/VIT C/BIOTIN 1 TAB TABLET PO SCH (10:26)
[2020-10-22] MEDS: FOLIC ACID 1 MG TABLET PO SCH (10:26)
[2020-10-22] MEDS: THIAMINE HCL 100 MG TABLET PO SCH (10:26)
[2020-10-22] MEDS: DOCUSATE SODIUM 100 MG CAPSULE PO SCH ×2 (10:27→18:09)
[2020-10-22] MEDS: CARVEDILOL 12.5 MG TABLET PO SCH ×2 (10:29→18:09)
[2020-10-22] MEDS: PANTOPRAZOLE 40 MG TABLET.DR PO SCH (10:29)
[2020-10-22] MEDS: LOSARTAN POTASSIUM 50 MG TABLET PO SCH ×2 (10:30→18:09)
--- NOTE | 2020-10-22 16:30 | NUR ---
m/s burlesque dancer: notes pt resting comfortable. no sob noted. will continue to monitor.
--- NOTE | 2020-10-22 18:09 | NUR ---
m/s pillowcase sewer: notes pt refused his b/p meds, stated, "it's low, i don't want to get dizzy." b/p at 135/68. med education provided.
--- NOTE | 2020-10-22 19:10 | NUR ---
m/s chart snatcher: notes report given to hernandez (rn) for continuity of care.
[2020-10-22 21:00] VITALS: BP 110/70
--- NOTE | 2020-10-22 22:45 | NUR ---
RN NOTE PATIENT'S DIALYSIS DONE WITH 2000 ML OUTPUT. PROCEDURE TOLERATED WELL. VITALS STABLE. NO CHANGES NOTED. WILL CONTINUE TO MONITOR THE PATIENT FOR ANY SUE.
[2020-10-23] MEDS: MORPHINE SULFATE INJ 2 MG/ML DISP.SYRIN IV PRN ×2 (00:25→21:14)
[2020-10-23 08:00] VITALS: BP 133/85
--- NOTE | 2020-10-23 08:17 | NUR ---
RN NOTE: PATIENT AWAKE ALERT. NO ACUTE DISTRESS NOTED AT THIS TIME. OXYGEN 2L/MIN VIA NASAL CANNULA ON, TOLERATING WELL. RIGHT HAND # 20 INTACT AND PATENT. ALL NEEDS MET . SAFETY MEASURES IN PLACE, BED LOCKED AND IN LOWEST POSITION, CALL LIGHT WITHIN REACH. WILL ENDORSE TO REFRIGERATION INSTALLER.
[2020-10-23] MEDS: FOLIC ACID 1 MG TABLET PO SCH (08:50)
[2020-10-23] MEDS: THIAMINE HCL 100 MG TABLET PO SCH (08:50)
[2020-10-23] MEDS: ASPIRIN 81 MG TAB.CHEW PO SCH (08:50)
[2020-10-23] MEDS: VIT B CMPLX 3/FA/VIT C/BIOTIN 1 TAB TABLET PO SCH (08:50)
[2020-10-23] MEDS: DOCUSATE SODIUM 100 MG CAPSULE PO SCH ×2 (08:53→16:20)
[2020-10-23] MEDS: PANTOPRAZOLE 40 MG TABLET.DR PO SCH (08:53)
[2020-10-23] MEDS: CARVEDILOL 12.5 MG TABLET PO SCH ×2 (08:53→16:20)
[2020-10-23] MEDS: LOSARTAN POTASSIUM 50 MG TABLET PO SCH ×2 (08:54→16:20)
--- NOTE | 2020-10-23 09:00 | NUR ---
m/s buffing turner and counter: nephro f/u seen by dr. aguilar with order of us guided paracentesis. order acknowledged. pt aware and will sign the consent.
--- NOTE | 2020-10-23 09:48 | NUR ---
m/s tension worker: notes consent signed by pt and verbalized understanding.
[2020-10-23 10:00] VITALS: BP 133/85
--- NOTE | 2020-10-23 10:10 | NUR ---
m/s certified optician: notes radiologist at bedside performing us guided paracentesis with tech at this time.
--- NOTE | 2020-10-23 10:40 | NUR ---
m/s air traffic control supervisor: notes s/p us guided paracentesis with Approximately 3550 cc of clear yellow fluid was obtained, marci. procedure well. instructed to call for assistance.
--- NOTE | 2020-10-23 12:00 | NUR ---
m/s zipper setter lockstitch: notes pt having hd tx at this time. pt had us guided paracentesis earlier this morning, marci. procedure well. will continue to monitor.
[2020-10-23 12:43] LABS: BASOPHILS # (AUTO) 0.1 /CMM (0.0-0.2); BASOPHILS % (AUTO) 2.5 % (0.0-2.0); EOSINOPHILS % (AUTO) 3.4 % (0.0-6.0); HEMATOCRIT 31 % (39-51); HEMOGLOBIN 10.5 g/dL (13.5-17.5); LYMPHOCYTES # (AUTO) 0.3 /CMM (0.8-4.8); MEAN CORPUSCULAR HGB CONC 34 g/dl (31.0-36.0); MEAN CORPUSCULAR VOLUME 101 fL (80-96); MONOCYTES # (AUTO) 0.2 /CMM (0.1-1.30); MONOCYTES % (AUTO) 4.5 % (2.0-12.0); NEUTROPHILS # (AUTO) 4.1 /CMM (1.8-8.9); NEUTROPHILS % (AUTO) 83.6 % (43.0-81.0); PLATELET COUNT (AUTO) 97 /CMM (150-450); RED BLOOD CELL COUNT(AUTO) 3.07 MIL/uL (4.5-6.0); WHITE BLOOD COUNT (AUTO) 4.9 K/uL (4.3-11.0)
--- NOTE | 2020-10-23 13:25 | NUR ---
m/s water pollution scientist: notes pt sounds asleep. hd tx in progress. no distress noted. will continue to monitor.
[2020-10-23 13:51] LABS: EOSINOPHILS % (MANUAL) 6 % (0-4); LYMPHOCYTES % (MANUAL) 3 % (16-48); MONOCYTES % (MANUAL) 3 % (0-11.0); NEUTROPHILS % (MANUAL) 88 (42-76)
[2020-10-23 13:53] LABS: CALCIUM, SERUM 8.2 mg/dL (8.5-10.1); MAGNESIUM 2.3 mg/dL (1.8-2.4); PHOSPHORUS 3.4 mg/dL (2.5-4.9); POTASSIUM 3.5 mmol/L (3.5-5.1)
[2020-10-23 14:00] VITALS: BP 116/88
--- NOTE | 2020-10-23 14:00 | NUR ---
karthikeyan/andrew drill setup operator: notes hd tx completed with 3 liters uf per hd nurse. b/p 116/88, hr=85. Addendum: 10/23/20 at 1445 by OMAR NORTH BINDER OPERATOR hd nurse still here and informed me that it was 2600 ml uf, not 3 liters. output correction done.
[2020-10-23 14:06] LABS: CREATININE 7.9 mg/dL (0.6-1.3)
[2020-10-23 17:00] VITALS: BP 129/86
--- NOTE | 2020-10-23 19:10 | NUR ---
RN OPENING NOTE RECEIVED PATIENT IN BED RESTING ALERT ORIENTED X4 VERBALLY RESPONSIVE ABLE TO MAKE NEEDS KNOWN,ON ROOM AIR O2:98% IV SITE IS ON RIGHT HAND INTACT PATENT AND DIALYSIS AV SHUNT IS ON RIGHT FOREARM BRUIT AND THRILL PRESENT,CONTINENT TO BOWEL AND BLADDER,BED IN LOW POSITION AND LOCKED,BED ALARM IS ON,CALL LIGHT WITHIN REACH,SAFETY MEASURE IMPLEMENT CONTINUE TO MONITOR.
--- NOTE | 2020-10-23 19:15 | NUR ---
m/s cleaner industrial: notes report given to paulina (elmo) for continuity of care.
[2020-10-23 22:00] VITALS: BP 136/82
--- NOTE | 2020-10-24 06:45 | NUR ---
RN CLOSING NOTE PATIENT REMAINS ON ALERT ORIENTED X4 VERBALLY RESPONSIVE NO SOB NOT ACUTE DISTRESS NOTED,ON ROOM AIR O2:98% IV SITE IS ON RIGHT HAND INTACT PATENT ALL DUE MEDS GIVEN MD ORDERED KEPT CLEAN AND DRY ALL THE TIME,KEPT COMFORTABLE KEPT CALL LIGHT WITHIN REACH,ENDORSE NEXT COMING SHIFT FOR CONTINUATION OF CARE.
--- NOTE | 2020-10-24 07:30 | NUR ---
RN MED SURG3 PATIENT IN BED, NO S/S OF DISTRESS, A/O X4, ON ROOM AIR, O2 SAT> 97%, BATHROOM PRIVILEGES, SKIN INTACT, R HAND IV,IV FLUSHES WELL NO S/S OF INFECTION, L FA AV SHUNT FLUSHES WELL CLEAN DRY INTACT, BED IN LOWEST LOCKED POSITION, CALL LIGHT WITHIN REACH, SAFETY MEASURES IN PLACE, WILL CONTINUE TO MONITOR.
[2020-10-24 08:00] VITALS: BP 137/85
[2020-10-24] MEDS: FOLIC ACID 1 MG TABLET PO SCH (08:38)
[2020-10-24] MEDS: PANTOPRAZOLE 40 MG TABLET.DR PO SCH (08:38)
[2020-10-24] MEDS: ASPIRIN 81 MG TAB.CHEW PO SCH (08:38)
[2020-10-24] MEDS: DOCUSATE SODIUM 100 MG CAPSULE PO SCH ×2 (08:38→10:32)
[2020-10-24] MEDS: VIT B CMPLX 3/FA/VIT C/BIOTIN 1 TAB TABLET PO SCH (08:38)
[2020-10-24] MEDS: LOSARTAN POTASSIUM 50 MG TABLET PO SCH (08:38)
[2020-10-24] MEDS: CARVEDILOL 12.5 MG TABLET PO SCH (08:39)
[2020-10-24] MEDS: THIAMINE HCL 100 MG TABLET PO SCH (08:39)
[2020-10-24 10:00] VITALS: BP 137/85
[2020-10-24] MEDS ORDERED: Thiamine HCL PO (11:52)
--- NOTE | 2020-10-24 16:30 | NUR ---
RN MED SURG3 PATIENT PREPARED TO GO HOME, IV IS REMOVED AND NO BLEEDING OCCURRING, PATIENT WALKED OUT TO THE PARKING LOT WITH THE RN AND DROVE SELF TO HOME. VITALS WERE STABLE PRIOR TO DISCHARGE. DC INSTRUCTIONS GIVEN, SIGNED BY PATIENT, BELONGINGS LIST REVIEWED AND SIGNED, TOOK ALL BELONGINGS WHEN LEFT, SKIN INTACT SO NO IMAGES WERE TAKEN, EDUCATED ON DC INSTRUCTIONS AND WHAT THE PHARMACY AGREED UPON TO WARD SECRETARY MEDICATION.
== END 2020-10-24 16:30 | disposition home or self-care (01) | DRG 280 ==
LOC: ER 19:10 → TRANSITION 10-21 00:18 → UNDOADMIN 10-21 00:18 → TRANSITION 10-21 06:13 → TELE 10-21 06:13 → MED 10-22 12:40 → TELE 10-22 12:40 → UNDODISIN 10-24 16:30
PROVIDERS: ADMIT Internal Medicine; ATTEND Internal Medicine
PROC: 5A1D70Z Performance of Urinary Filtration, Intermittent, Less than 6 Hours Per Day (ICD-10-PCS; 2020-10-21)
PROC: 0W993ZZ Drainage of Right Pleural Cavity, Percutaneous Approach (ICD-10-PCS; 2020-10-22)
PROC: 0W9G3ZZ Drainage of Peritoneal Cavity, Percutaneous Approach (ICD-10-PCS; principal; 2020-10-23)
DX: K70.31 Alcoholic cirrhosis of liver with ascites (principal); I13.2 Hypertensive heart and chronic kidney disease with heart failure and with stage 5 chronic kidney disease, or end stage renal disease; N18.6 End stage renal disease; I27.20 Pulmonary hypertension, unspecified; Z99.2 Dependence on renal dialysis; E87.1 Hypo-osmolality and hyponatremia; D50.9 Iron deficiency anemia, unspecified; I21.A1 Myocardial infarction type 2; F32.9 Major depressive disorder, single episode, unspecified; K76.6 Portal hypertension; E87.6 Hypokalemia; F17.210 Nicotine dependence, cigarettes, uncomplicated; I42.9 Cardiomyopathy, unspecified; Z20.822 Contact with and (suspected) exposure to COVID-19; L03.116 Cellulitis of left lower limb; L03.115 Cellulitis of right lower limb; D68.69 Other thrombophilia; I31.3 Pericardial effusion (noninflammatory); J90 Pleural effusion, not elsewhere classified; I50.23 Acute on chronic systolic (congestive) heart failure; F10.20 Alcohol dependence, uncomplicated; Y90.5 Blood alcohol level of 100-119 mg/100 ml; Z74.09 Other reduced mobility
CPT/HCPCS: 36415; 71045-TC; 76700-TC; 76942-TC; 80048-TC; 80053-TC; 80061-TC; 80076-TC; 83735-TC; 83880; 84100-TC; 84443-TC; 84484-TC; 85025-TC; 85730-TC; 86704; 86705; 86706; 86803; 87081-TC; 87340; 90935-TC; 93307-TC; 93970-TC; C9803; G0378; G0480; J0885; J2060; J2270; J2405

== ENCOUNTER 2020-12-03 09:39 | Emergency (ER) | payer MEDICAID ==
[~2020-12-03] VITALS: Ht 172.7 cm; Wt 83.5 kg
[~2020-12-03 09:39] MED LIST changes: +Thiamine HCL PO
--- NOTE | 2020-12-03 09:46 | NUR ---
Sent by PMD Dr. Peraza for thoracenthesis, 98% on room air, denies SOB at this time. To ER bed 9, hooked to monitor, changed to hosp gown, warm blanket provided, patient aao X 4. NAD noted. Dr Weller at bedside
--- NOTE | 2020-12-03 09:51 | NUR ---
patient refused iv peripheral line insertion
--- NOTE | 2020-12-03 09:52 | NUR ---
KARIE HAYS AT BEDSIDE FOR EKG
--- NOTE | 2020-12-03 10:04 | NUR ---
CONSENT FOR US GUIDED THORACENTESIS SIGNED BY PATIENT
[2020-12-03 10:08] LABS: BASOPHILS # (AUTO) 0.1 /CMM (0.0-0.2); HEMATOCRIT 32 % (39-51); LYMPHOCYTES # (AUTO) 0.6 /CMM (0.8-4.8); PLATELET COUNT (AUTO) 129 /CMM (150-450)
[2020-12-03 10:11] LABS: EOSINOPHILS % (AUTO) 3.6 % (0.0-6.0); HEMOGLOBIN 11.1 g/dL (13.5-17.5); LYMPHOCYTES % (AUTO) 11.6 % (20.0-44.0); MEAN CORPUSCULAR HGB CONC 34 g/dl (31.0-36.0); MEAN CORPUSCULAR VOLUME 98 fL (80-96); MONOCYTES # (AUTO) 0.4 /CMM (0.1-1.30); MONOCYTES % (AUTO) 7.2 % (2.0-12.0); NEUTROPHILS % (AUTO) 76.6 % (43.0-81.0); RED BLOOD CELL COUNT(AUTO) 3.32 MIL/uL (4.5-6.0); WHITE BLOOD COUNT (AUTO) 5.2 K/uL (4.3-11.0)
[2020-12-03 10:14] LABS: CALCIUM, SERUM 9.1 mg/dL (8.5-10.1); POTASSIUM 3.9 mmol/L (3.5-5.1)
[2020-12-03 10:25] LABS: CREATININE 10.2 mg/dL (0.6-1.3)
--- NOTE | 2020-12-03 10:31 | NUR ---
US TECH AT BEDSIDE FOR THORACENTESIS
--- NOTE | 2020-12-03 10:32 | NUR ---
DR ROSEY JARVIS AT BEDSIDE FOR THORACENTESIS OF R LUNG
--- NOTE | 2020-12-03 11:11 | NUR ---
TOTAL OF 1750CC OF RED TINGED FLUID FROM THORACENTESIS COLLECTED FROM PATIENT BY DR JARVIS.
--- NOTE | 2020-12-03 11:54 | NUR ---
PATIENT ABLE TO AMBULATE. NO SOB, O2 SATURATION AT 97% AT RA.
--- NOTE | 2020-12-03 12:11 | NUR ---
Patient discharged to home in stable condition. Written and verbal after care instructions given. Patient verbalizes understanding of instruction.
[2020-12-03 12:15] VITALS: BP 154/103
== END 2020-12-03 12:16 | disposition home or self-care (01) ==
LOC: ER 09:43
DX: I12.0 Hypertensive chronic kidney disease with stage 5 chronic kidney disease or end stage renal disease (principal); E11.22 Type 2 diabetes mellitus with diabetic chronic kidney disease; N18.6 End stage renal disease; J90 Pleural effusion, not elsewhere classified; F10.10 Alcohol abuse, uncomplicated; Y90.9 Presence of alcohol in blood, level not specified; Z99.2 Dependence on renal dialysis; Z90.89 Acquired absence of other organs; Z98.890 Other specified postprocedural states; Z60.2 Problems related to living alone; Z79.899 Other long term (current) drug therapy
CPT/HCPCS: 36415; 71045-TC; 80048-TC; 84484-TC; 85025-TC; 85730-TC

== ENCOUNTER 2020-12-23 19:47 | Inpatient (IN) | payer MEDICAID ==
[~2020-12-23] VITALS: Ht 172.7 cm; Wt 81.2 kg
[2020-12-23] MEDS ORDERED: predniSONE 20 MG TABLET PO ONE (20:00)
[2020-12-23] MEDS ORDERED: IPRATROPIUM NEB FS 0.5 MG/2.5 ML AMPUL.NEB NEB ONE (20:00)
[2020-12-23] MEDS ORDERED: ALBUTEROL FS 2.5 MG/3 ML VIAL.NEB NEB ONE (20:00)
[2020-12-23] MEDS ORDERED: predniSONE 20 MG TABLET ONE (20:05)
--- NOTE | 2020-12-23 20:05 | NUR ---
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 PT ALERT , OX4. AMBULATORY TO BED 7. WAS PLACED ON A MONITOR AND SUPPLEMENTAL O2 OF 2LPM VIA NC. PT W/ HX OF ESRD ON HD 4 DAYS A WEEK. W/ LAST HD ON THURSDAY,, YESTERDAY. HD ACCESS ON LFA W/ BANDAID ON. WILL CONT TO MONITOR ,
[2020-12-23 20:19] LABS: BASOPHILS # (AUTO) 0.1 /CMM (0.0-0.2); BASOPHILS % (AUTO) 1.2 % (0.0-2.0); EOSINOPHILS % (AUTO) 3.8 % (0.0-6.0); HEMATOCRIT 32 % (39-51); HEMOGLOBIN 10.6 g/dL (13.5-17.5); LYMPHOCYTES # (AUTO) 0.6 /CMM (0.8-4.8); LYMPHOCYTES % (AUTO) 10.3 % (20.0-44.0); MEAN CORPUSCULAR HGB CONC 34 g/dl (31.0-36.0); MEAN CORPUSCULAR VOLUME 98 fL (80-96); MONOCYTES # (AUTO) 0.4 /CMM (0.1-1.30); MONOCYTES % (AUTO) 7.9 % (2.0-12.0); NEUTROPHILS # (AUTO) 4.3 /CMM (1.8-8.9); NEUTROPHILS % (AUTO) 76.8 % (43.0-81.0); PLATELET COUNT (AUTO) 132 /CMM (150-450); RED BLOOD CELL COUNT(AUTO) 3.22 MIL/uL (4.5-6.0); WHITE BLOOD COUNT (AUTO) 5.6 K/uL (4.3-11.0)
[2020-12-23] MEDS ORDERED: ALBUTEROL FS 2.5 MG/3 ML VIAL.NEB ONE (20:20)
[2020-12-23] MEDS ORDERED: IPRATROPIUM NEB FS 0.5 MG/2.5 ML AMPUL.NEB ONE (20:20)
--- NOTE | 2020-12-23 20:27 | NUR ---
RT AT BED SIDE FOR BREATHING TX
[2020-12-23 20:45] LABS: CALCIUM, SERUM 9.2 mg/dL (8.5-10.1); POTASSIUM 3.4 mmol/L (3.5-5.1)
[2020-12-23 20:46] LABS: CREATININE 8.5 mg/dL (0.6-1.3)
--- NOTE | 2020-12-23 20:48 | NUR ---
COVID SWAB COLLECTED AND SENT TO LAB, 20G PIV LINE STARTED ON R WRIST W/ GOOD BLOOD RETURN
[2020-12-23] MEDS ORDERED: ACETAMINOPHEN 325 MG TABLET PO PRN (21:30)
[2020-12-23] MEDS ORDERED: ONDANSETRON HCL/PF 4 MG/2 ML VIAL IVP PRN (21:30)
[2020-12-23] MEDS ORDERED: Z GUARD REMEDY 2 OZ OINT TP PRN (21:30)
[2020-12-23] MEDS ORDERED: HYDROCODONE/APAP 5/325MG TABLET PO PRN (21:30)
[2020-12-23] MEDS ORDERED: MORPHINE SULFATE INJ 2 MG/ML DISP.SYRIN IV PRN (21:30)
[2020-12-23] MEDS ORDERED: MAGNESIUM HYDROXIDE 30 ML UDC PO PRN (21:30)
[2020-12-23] MEDS ORDERED: MAG HYDROX/AL HYDROX/SIMETH 30 ML UDC PO PRN (21:30)
--- NOTE | 2020-12-23 21:43 | NUR ---
CALLED LAB TO FOLLOW UP WITH COVID RESULT
[2020-12-23] MEDS ORDERED: ALBUTEROL FS 2.5 MG/3 ML VIAL.NEB NEB PRN (22:00)
--- NOTE | 2020-12-23 22:36 | NUR ---
PER NURSING CLIENT OPERATIONS MANAGER PT WILL BE GOING TO 320-1.
--- NOTE | 2020-12-23 22:51 | NUR ---
REPORT GIVEN TO LUIS ON THIRD FLOOR
[2020-12-23 23:15] VITALS: BP 178/134
--- NOTE | 2020-12-23 23:15 | NUR ---
PT WAS TRANSFERRED TO [facility] UNDER ACLS
--- NOTE | 2020-12-23 23:30 | NUR ---
TELE/RN OPENING NOTE RECEIVED PATIENT FROM ER VIA GUZMAN AND 2 STAFF MEMBERS. PATIENT PLACED IN ROOM 321-1. PATIENT IS ALERT AND ORIENTED X 4. ABLE TO MAKE NEEDS KNOWN. NO COMPLAINTS OF PAIN AT THIS TIME. IV ACCESS TO RIGHT WRIST INTACT AND PATENT. BP UPON ADMISSION IS 178/113. GIVEN SCHEDULED BLOOD PRESSURE MEDICATION WITH RESULT PENDING. NO COMPLAINTS OF HEADACHES OR VISUAL CHANGES. PATIENT REFUSED SKIN CHECK ON ADMISSION. PATIENT HAS LEFT AV FISTULA AND HD ON , THU, , SAT. PATIENT'S LAST HD SESSION WAS YESTERDAY (SAT. 12/22). PATIENT IS ON TELE MONITOR. CONTINUES ON 2L O2 VIA NC WITH O2 SATS 96%. CALL LIGHT WITHIN REACH. ASPIRATION, FALL AND SAFETY PRECAUTIONS MAINTAINED. WILL CONTINUE TO MONITOR.
[2020-12-24] MEDS: CARVEDILOL 6.25 MG TABLET PO SCH ×2 (00:03→09:00)
[2020-12-24] MEDS: LOSARTAN POTASSIUM 25 MG TABLET PO SCH ×3 (00:04→09:07)
--- NOTE | 2020-12-24 01:00 | NUR ---
TELE/RN NOTE BP RECHECK AFTER MEDICATION IS 126/77 HR 78. WILL CONTINUE TO MONITOR.
--- NOTE | 2020-12-24 02:11 | NUR ---
TELE/RN NOTE TELE MONITOR WAS READING SR HR 70 FOR PATIENT. SUPERVISOR ROVING DEPARTMENT SAYS THE READING KEEPS GOING OFF AND ON. ATTEMPTED TO REPLACE WIRES, TELE BOX AND LEAD STICKERS WITH THE TELE MONITOR STILL SHOWING ON AND OFF READINGS. PATIENT IS REFUSING TO LET STAFF FIX THE LEADS ANYMORE. NO C/O CHEST PAIN OR SOB. WILL CONTINUE TO MONITOR.
[2020-12-24] MEDS ORDERED: hydrALAZINE HCL IV 20 MG VIAL IV PRN (03:00)
--- NOTE | 2020-12-24 04:35 | NUR ---
TELE/RN NOTE PATIENT REFUSING TO TAKE VITAL SIGNS FOR 4AM. PATIENT RIPPED OFF BLOOD PRESSURE CUFF AND INFORMED CULLET TRUCKER TO "JUST LEAVE ME ALONE". PATIENT INFORMED OF IMPORTANCE OF MONITORING HIS VITAL SIGNS WITH PATIENT CONTINUING TO REFUSE. WILL CONTINUE TO MONITOR.
--- NOTE | 2020-12-24 06:00 | NUR ---
TELE/RN CLOSING NOTE PATIENT IS CURRENTLY SLEEPING IN BED. ALERT AND ORIENTED X 4. ABLE TO MAKE NEEDS KNOWN. NO COMPLAINTS OF PAIN AT THIS TIME. IV ACCESS TO RIGHT WRIST INTACT AND PATENT. TELE MONITOR READING SR 74. CONTINUES ON 2L O2 VIA NC WITH NO SIGNS OR SYMPTOMS OF RESPIRATORY DISTRESS NOTED. CALL LIGHT WITHIN REACH. ASPIRATION, FALL AND SAFETY PRECAUTIONS MAINTAINED. WILL ENDORSE PLAN OF CARE TO ONCOMING SHIFT RN.
--- NOTE | 2020-12-24 08:00 | NUR ---
RN OPENING NOTE PT IS AWAKE IN BED RESTING. A/O X3 AND UKRAINIAN SPEAKING. NO COMPLAINT OF PAIN OR NAUSEA. ON 3L NC WITH NO RESPIRATORY DISTRESS PRESENT. O2 SAT >95%. AMBULATORY WITH BATHROOM PRIVILEGES. SKIN IS INTACT. NO EDEMA PRESENT. L FA AV SHUNT PRESENT. HL PRESENT ON R WRIST 20G. SAFETY MEASURES IN PLACE. SIDE RAILS RAISED. BED LOWERED. CALL LIGHT WITHIN REACH. WILL CONTINUE TO MONITOR.
[2020-12-24 08:03] VITALS: BP 126/77
[2020-12-24 09:00] VITALS: BP 126/77
[2020-12-24] MEDS ORDERED: THIAMINE HCL 100 MG TABLET PO SCH (09:00)
[2020-12-24] MEDS ORDERED: ASPIRIN 81 MG TAB.CHEW PO SCH (09:00)
[2020-12-24 09:56] LABS: BASOPHILS % (AUTO) 0.1 % (0.0-2.0); EOSINOPHILS % (AUTO) 0.1 % (0.0-6.0); HEMATOCRIT 33 % (39-51); HEMOGLOBIN 11.2 g/dL (13.5-17.5); LYMPHOCYTES # (AUTO) 0.4 /CMM (0.8-4.8); LYMPHOCYTES % (AUTO) 7.8 % (20.0-44.0); MEAN CORPUSCULAR HGB CONC 34 g/dl (31.0-36.0); MEAN CORPUSCULAR VOLUME 97 fL (80-96); MONOCYTES # (AUTO) 0.1 /CMM (0.1-1.30); MONOCYTES % (AUTO) 2.4 % (2.0-12.0); NEUTROPHILS # (AUTO) 4.4 /CMM (1.8-8.9); NEUTROPHILS % (AUTO) 89.6 % (43.0-81.0); PLATELET COUNT (AUTO) 145 /CMM (150-450); RED BLOOD CELL COUNT(AUTO) 3.41 MIL/uL (4.5-6.0); WHITE BLOOD COUNT (AUTO) 4.9 K/uL (4.3-11.0)
[2020-12-24 10:13] LABS: CALCIUM, SERUM 9.1 mg/dL (8.5-10.1); CREATININE 9.8 mg/dL (0.6-1.3); MAGNESIUM 2.8 mg/dL (1.8-2.4); PHOSPHORUS 5.1 mg/dL (2.5-4.9); POTASSIUM 4.6 mmol/L (3.5-5.1)
[2020-12-24] MEDS ORDERED: AZITHROMYCIN 250 MG TABLET PO SCH (10:30)
[2020-12-24] MEDS ORDERED: CEFTRIAXONE 1 G in IV D5W 50 ML IV SCH (11:00)
--- NOTE | 2020-12-24 11:22 | NUR ---
RN THORACENTESIS NOTE PT THORACENTESIS DONE WITH 1.7 L REMOVED. FLUID IS DARK RED. STAT CHEST XRAY ORDERED FOR S/P THORACENTESIS.
--- NOTE | 2020-12-24 13:30 | NUR ---
RN AMA NOTE PT LEFT AMA AGAINST PHYSICIANS ADVICE. EDUCATION GIVEN. PAPERS REFUSED. PRESCRIPTION GIVEN. IV REMOVED. ID BAND REMOVED.
== END 2020-12-24 13:50 | disposition left against medical advice (07) | DRG 194 ==
LOC: ER 19:48 → TELE 22:59 → MED 12-24 07:58
PROVIDERS: ADMIT Nurse Practitioner Acute Care; ATTEND Nurse Practitioner Acute Care
PROC: 0W993ZZ Drainage of Right Pleural Cavity, Percutaneous Approach (ICD-10-PCS; principal; 2020-12-24)
PROC: 5A1D70Z Performance of Urinary Filtration, Intermittent, Less than 6 Hours Per Day (ICD-10-PCS; 2020-12-24)
DX: I13.2 Hypertensive heart and chronic kidney disease with heart failure and with stage 5 chronic kidney disease, or end stage renal disease (principal); J96.01 Acute respiratory failure with hypoxia; J90 Pleural effusion, not elsewhere classified; N18.6 End stage renal disease; I50.23 Acute on chronic systolic (congestive) heart failure; F17.200 Nicotine dependence, unspecified, uncomplicated; R18.8 Other ascites; Z20.822 Contact with and (suspected) exposure to COVID-19; K57.92 Diverticulitis of intestine, part unspecified, without perforation or abscess without bleeding; Z99.2 Dependence on renal dialysis; Z79.899 Other long term (current) drug therapy; E87.1 Hypo-osmolality and hyponatremia; E87.6 Hypokalemia; Z98.890 Other specified postprocedural states; Z90.49 Acquired absence of other specified parts of digestive tract; I34.0 Nonrheumatic mitral (valve) insufficiency; D53.9 Nutritional anemia, unspecified; I16.0 Hypertensive urgency; I31.3 Pericardial effusion (noninflammatory); I25.2 Old myocardial infarction; I42.9 Cardiomyopathy, unspecified; I21.A1 Myocardial infarction type 2
CPT/HCPCS: 36415; 71045-TC; 76705-TC; 80048-TC; 82040-TC; 83735-TC; 83880; 84100-TC; 84484-TC; 85025-TC; 85610-TC; 87081-TC; 90935-TC; 93307-TC; 94799-TC; C9803; G0378; J0696; J2270; J7050; J7060

== ENCOUNTER 2021-01-18 05:25 | Inpatient (IN) | payer MEDICAID ==
[~2021-01-18] VITALS: Ht 172.7 cm; Wt 81.2 kg
--- NOTE | 2021-01-18 05:36 | NUR ---
BIBSELF FOR DISTENDED ABD, HX ASCITIES, LAST PARACENTESIS X 1 MONTH AGO. PT AAOX4, PT TO BED 10, DENIES SOB/CP, PLACED ON MONITOR. VSS, PENDING ER PROVIDER KYLIE
[2021-01-18 06:24] LABS: CALCIUM, SERUM 8.7 mg/dL (8.5-10.1); CREATININE 5.8 mg/dL (0.6-1.3); POTASSIUM 4.2 mmol/L (3.5-5.1)
[2021-01-18 06:30] LABS: ALBUMIN 3.6 g/dL (3.4-5.0); BILIRUBIN,DIRECT 0.3 mg/dL (0.0-0.2); BILIRUBIN,TOTAL 0.7 mg/dL (0.2-1.0); TOTAL PROTEIN, SERUM 8.3 g/dL (6.4-8.2)
--- NOTE | 2021-01-18 06:30 | NUR ---
COVID SWAB COLLECTED. CALLED LAB FOR BULK SUGAR HANDLER
[2021-01-18 06:33] LABS: BASOPHILS # (AUTO) 0.1 /CMM (0.0-0.2); BASOPHILS % (AUTO) 1.8 % (0.0-2.0); EOSINOPHILS % (AUTO) 3.7 % (0.0-6.0); HEMATOCRIT 32 % (39-51); LYMPHOCYTES # (AUTO) 1.1 /CMM (0.8-4.8); LYMPHOCYTES % (AUTO) 25.3 % (20.0-44.0); MEAN CORPUSCULAR HGB CONC 35 g/dl (31.0-36.0); MEAN CORPUSCULAR VOLUME 99 fL (80-96); MONOCYTES # (AUTO) 0.4 /CMM (0.1-1.30); MONOCYTES % (AUTO) 9.6 % (2.0-12.0); NEUTROPHILS # (AUTO) 2.5 /CMM (1.8-8.9); NEUTROPHILS % (AUTO) 59.6 % (43.0-81.0); PLATELET COUNT (AUTO) 149 /CMM (150-450); RED BLOOD CELL COUNT(AUTO) 3.19 MIL/uL (4.5-6.0); WHITE BLOOD COUNT (AUTO) 4.3 K/uL (4.3-11.0)
--- NOTE | 2021-01-18 08:15 | NUR ---
PAGED [facility].
--- NOTE | 2021-01-18 08:53 | NUR ---
CALLED NURSING SUP FOR TELE BED.
--- NOTE | 2021-01-18 09:55 | NUR ---
YUDY ROBLEDO OPENING NOTE RECEIVED REPORT FROM VENKAT DE LEON Addendum: 01/18/21 at 1225 by DENYS TORO RN MS SIBLEY
--- NOTE | 2021-01-18 09:56 | NUR ---
Report given to VENKAT Patel.
--- NOTE | 2021-01-18 10:10 | NUR ---
MS RN NOTE PATIENT WAS BROUGHT UP VIA GURNEY. A/O X4. AMBULATORY. PT HAS SOB, NC ON 2 LPM. DENIES ANY PAIN OR DISCOMFORT AT THIS TIME. IV ACCESS ON R HAND #20 G, INTACT. AV FISTULA ON THE L FOREARM. SKIN ASSESSMENT DONE, REFUSED PHOTO TO BE TAKEN. SAFETY MEASURES MAINTAINED. BED IN LOWEST POSITION, BRAKES LOCKED. SIDE RAILS UP X2. CALL LIGHT WITHIN REACH. WILL CONTINUE PLAN OF CARE. VS BP 173/119 CT 120 RR 20 TEMP 98.1 SA02 98%
--- NOTE | 2021-01-18 10:12 | NUR ---
transfered the patient to room #311-1 following acls protocol
[2021-01-18] MEDS ORDERED: ONDANSETRON HCL/PF 4 MG/2 ML VIAL IVP PRN (10:30)
[2021-01-18] MEDS ORDERED: Z GUARD REMEDY 2 OZ OINT TP PRN (10:30)
[2021-01-18] MEDS ORDERED: MAGNESIUM HYDROXIDE 30 ML UDC PO PRN (10:30)
[2021-01-18] MEDS ORDERED: HYDROCODONE/APAP 5/325MG TABLET PO PRN (10:30)
[2021-01-18] MEDS ORDERED: ACETAMINOPHEN 325 MG TABLET PO PRN (10:30)
[2021-01-18] MEDS ORDERED: MAG HYDROX/AL HYDROX/SIMETH 30 ML UDC PO PRN (10:30)
[2021-01-18] MEDS: MORPHINE SULFATE INJ 2 MG/ML DISP.SYRIN IV PRN ×2 (14:36→22:40)
[2021-01-18] MEDS: LOSARTAN POTASSIUM 50 MG TABLET PO SCH (16:14)
[2021-01-18 16:25] VITALS: BP 174/123
--- NOTE | 2021-01-18 18:03 | NUR ---
MS RN NOTE Post Thoracentesis, 1550 cc of dark reddish brown fluid was aspirated from the right pleural space. Ordered STAT CXR.
--- NOTE | 2021-01-18 18:05 | NUR ---
MS RN NOTE PATIENT SITTING IN THE BED. A/O X4. AMBULATORY. PT STILL HAVE SOB, NC ON 2 LPM. DENIES ANY PAIN OR DISCOMFORT AT THIS TIME. IV ACCESS ON R HAND #20 G, INTACT. AV FISTULA ON THE L FOREARM. POSTED A NO BP TAKING ON THE LEFT ARM SIGN ON THE WALL. ABLE TO MAKE NEEDS KNOWN. DUE MEDS GIVEN ORDERED. SAFETY MEASURES MAINTAINED. BED IN LOWEST POSITION, BRAKES LOCKED. SIDE RAILS UP X2. CALL LIGHT WITHIN REACH. WILL ENDORSE CONTINUITY OF CARE TO ONCOMING SHIFT.
[2021-01-18] MEDS ORDERED: LEVOFLOXACIN (250MG) 250 MG TABLET PO SCH (18:30)
[2021-01-18 20:00] VITALS: BP 139/98
[2021-01-18] MEDS: CARVEDILOL 12.5 MG TABLET PO SCH (21:05)
--- NOTE | 2021-01-18 22:40 | NUR ---
PATIENT C/O 10/10 PAIN IN BOTH FEET. PATIENT WAS GIVEN MORPHINE 2MG/1ML INTRAVENOUSLY FOR THE PAIN. WILL CONTINUE TO MONITOR THE PATIENT.
[2021-01-19] MEDS: MORPHINE SULFATE INJ 2 MG/ML DISP.SYRIN IV PRN (03:22)
--- NOTE | 2021-01-19 03:23 | NUR ---
MS RN NOTES PATIENT C/O 10/10 PAIN IN BOTH FEET. PATIENT WAS GIVEN MORPHINE 2MG/1ML INTRAVENOUSLY FOR THE PAIN AT 0322 . WILL CONTINUE TO MONITOR THE PATIENT.
--- NOTE | 2021-01-19 05:36 | NUR ---
MSRN REFUSED BLOOD DRAW AT THIS TIME. WILL CALL LAB ONCE PATIENT AGREES
--- NOTE | 2021-01-19 07:00 | NUR ---
MS RN NOTE PATIENT WAS LAST SEEN AWAKE IN THE BED. PATIENT IS A/O X3. PT IS ON 2L/MIN NASAL CANNULA, BREATHING IS EVEN AND UNLABORED. IV ACCESS ON RIGHT HAND #20 G IS INTACT AND PATENT. BED IS IN ITS LOWEST LOCKED POSITION. SIDE RAILS UP X2. CALL LIGHT IS WITHIN REACH OF THE PT. WILL ENDORSE CONTINUITY OF CARE TO ONCOMING SHIFT.
--- NOTE | 2021-01-19 07:43 | NUR ---
MS/RN NOTE RECEIVED REPORT FROM ONLINE MERCHANDISING SPECIALIST NURSE. PATIENT SEEN LAYING IN HOSPITAL BED. A/O X4, NO ACUTE DISTRESS NOTED. PATIENT ON 2L OF OXYGEN VIA NASAL CANNULA, TOLERATING WELL, NO SOB NOTED, BREATHING EVEN NON LABORED. ALL SAFETY MEASURES IN PLACE, BED LOCKED AND IN LOWEST POSITION, CALL LIGHT WITHIN REACH. WILL CONTINUE TO MONITOR AND ENSURE SAFETY.
[2021-01-19 08:00] VITALS: BP 114/78
[2021-01-19] MEDS: CARVEDILOL 12.5 MG TABLET PO SCH (09:07)
[2021-01-19 09:08] VITALS: BP 114/78
[2021-01-19] MEDS: LOSARTAN POTASSIUM 50 MG TABLET PO SCH (09:08)
--- NOTE | 2021-01-19 09:33 | NUR ---
MS/RN NOTE PATIENT REFUSED LAB DRAW.
[2021-01-19] MEDS ORDERED: ALBUMIN 25% 25 GM in PREMIX 1 EA IV PRN (11:30)
--- NOTE | 2021-01-19 13:10 | NUR ---
MS/RN DISCHARGED PATIENT WAS DISCHARGED HOME IN MEDICALLY STABLE CONDITION. NAME BAND AND IV REMOVED, APPLIED PRESSURE DRESSING. ALL PERSONAL BELONGINGS ACCOUNTED AND SIGNED OFF FOR IN BELONGINGS LIST. EDUCATED PATIENT OF EXIT CARE/DISCHARGE INSTRUCTIONS PER MD. PATIENT VERBALIZED UNDERSTANDING. COPY OF EXIT CARE/DISCHARGE INSTRUCTIONS GIVEN TO PATIENT. PATIENT LEFT UNIT FLOOR IN STABLE CONDITION WALKED TO THE EXIT WITH RN. PATIENT STATED HE WILL DRIVES HIS PERSONAL CAR HOME.
== END 2021-01-19 13:00 | disposition home or self-care (01) | DRG 194 ==
LOC: ER 05:29 → MED 09:54
PROVIDERS: ADMIT Nurse Practitioner Family; ATTEND Nurse Practitioner Family
PROC: 0W9930Z Drainage of Right Pleural Cavity with Drainage Device, Percutaneous Approach (ICD-10-PCS; 2021-01-18)
PROC: 5A1D70Z Performance of Urinary Filtration, Intermittent, Less than 6 Hours Per Day (ICD-10-PCS; principal; 2021-01-19)
DX: I13.2 Hypertensive heart and chronic kidney disease with heart failure and with stage 5 chronic kidney disease, or end stage renal disease (principal); J90 Pleural effusion, not elsewhere classified; I31.3 Pericardial effusion (noninflammatory); R18.8 Other ascites; E87.1 Hypo-osmolality and hyponatremia; N18.6 End stage renal disease; I42.9 Cardiomyopathy, unspecified; I50.9 Heart failure, unspecified; Z20.822 Contact with and (suspected) exposure to COVID-19; J98.11 Atelectasis; D64.9 Anemia, unspecified; Z90.49 Acquired absence of other specified parts of digestive tract; Z98.890 Other specified postprocedural states; Z79.899 Other long term (current) drug therapy; Z99.2 Dependence on renal dialysis; Z87.19 Personal history of other diseases of the digestive system; K72.90 Hepatic failure, unspecified without coma; F17.200 Nicotine dependence, unspecified, uncomplicated
CPT/HCPCS: 36415; 71045-TC; 76700-TC; 80048-TC; 80076-TC; 82140-TC; 83690-TC; 85025-TC; 85730-TC; 87081-TC; 90935-TC; A4216; C9803; G0378; J2270; P9047

== ENCOUNTER 2021-02-04 17:27 | Inpatient (IN) | payer MEDICAID ==
[~2021-02-04] VITALS: Ht 172.7 cm; Wt 78.7 kg
[2021-02-04] VITALS (13 sets, daily range): BP systolic 130–170; BP diastolic 82–134
[~2021-02-04 17:27] MED LIST changes: -HYDR-3972 PO; -Thiamine HCL PO
--- NOTE | 2021-02-04 17:50 | NUR ---
Patient came in to the er c/o sob since yesterday, feeling fluid overloaded. scheduled for dialysis tomorrow. On 02 @ 4lpm via NC. Connected to the monitor and pulse ox. kept comfortable, will continue to monitor accordingly.
[2021-02-04] MEDS ORDERED: NTG 50 MG/D5W250 ML BOTTL 250 ML IV PRN ×2 (18:00→19:30)
[2021-02-04 18:10] LABS: BASOPHILS # (AUTO) 0.1 /CMM (0.0-0.2); HEMATOCRIT 29 % (39-51); HEMOGLOBIN 9.9 g/dL (13.5-17.5); LYMPHOCYTES # (AUTO) 0.9 /CMM (0.8-4.8); LYMPHOCYTES % (AUTO) 12.9 % (20.0-44.0); MEAN CORPUSCULAR HGB CONC 35 g/dl (31.0-36.0); MEAN CORPUSCULAR VOLUME 104 fL (80-96); MONOCYTES # (AUTO) 0.6 /CMM (0.1-1.30); MONOCYTES % (AUTO) 8.5 % (2.0-12.0); NEUTROPHILS # (AUTO) 5.1 /CMM (1.8-8.9); NEUTROPHILS % (AUTO) 75.6 % (43.0-81.0); PLATELET COUNT (AUTO) 172 /CMM (150-450); RED BLOOD CELL COUNT(AUTO) 2.77 MIL/uL (4.5-6.0); WHITE BLOOD COUNT (AUTO) 6.7 K/uL (4.3-11.0)
[2021-02-04 18:23] LABS: CALCIUM, SERUM 9.4 mg/dL (8.5-10.1)
[2021-02-04 18:24] LABS: CREATININE 9.7 mg/dL (0.6-1.3)
[2021-02-04] MEDS ORDERED: HYDR-3980 PO (18:29)
[2021-02-04 18:45] LABS: BILIRUBIN,DIRECT 0.3 mg/dL (0.0-0.2); BILIRUBIN,TOTAL 0.9 mg/dL (0.2-1.0)
[2021-02-04 18:46] LABS: ALBUMIN 3.6 g/dL (3.4-5.0); TOTAL PROTEIN, SERUM 8.4 g/dL (6.4-8.2)
[2021-02-04 18:50] LABS: EOSINOPHILS % (MANUAL) 2 % (0-4); LYMPHOCYTES % (MANUAL) 14 % (16-48); MONOCYTES % (MANUAL) 8 % (0-11.0); NEUTROPHILS % (MANUAL) 76 (42-76)
[2021-02-04] MEDS ORDERED: ONDANSETRON HCL/PF 4 MG/2 ML VIAL IVP PRN (19:30)
[2021-02-04] MEDS ORDERED: HYDROCODONE/APAP 10/325MG TABLET PO PRN (19:30)
--- NOTE | 2021-02-04 19:30 | NUR ---
Patient On 02 @ 4lpm via NC. Connected to the monitor and pox. patient in no acute distress. will continue to monitor.
--- NOTE | 2021-02-04 20:07 | NUR ---
CALL FROM LAB, RAPID COVID NEGATIVE.
--- NOTE | 2021-02-04 20:23 | NUR ---
REPORT GIVEN TO LETI AT ICU
--- NOTE | 2021-02-04 20:25 | NUR ---
NITRO DRIP WAS INCREASED TO 25MCG/ MIN. BP: 176/130
--- NOTE | 2021-02-04 20:30 | NUR ---
TRAM INSPECTOR RCD PT FROM ER WITH SOB INCREASED O2 FROM 4 TO 6 L. PT SITTING IN BED.
--- NOTE | 2021-02-04 20:45 | NUR ---
PLACEMENT COORDINATOR RCD PT FROM ER WITH HYPERTENSIVE URGENCY. PT IS A/0x4 NOTED WITH PASSIVE BEHAVIOR. PT DECLINES TO REMOVE PANTS AND SOCKS FOR FULL SKIN ASSESSMENT. NOTED WITH SCATTERED DRY SCABS ON BACK. ON O2 6L NC. ST 116 ON MONITOR. ON NITRO DRIP AT 25 MCG/MIN VIA RIGHT WRIST. PT DECLINES SECOND IV INSERTION. LFA AV FISTULA NOTED.
--- NOTE | 2021-02-04 20:45 | NUR ---
PT WAS TRANSFERRED TO ICU UNDER ACLS
[2021-02-04] MEDS: CARVEDILOL 12.5 MG TABLET PO SCH (20:46)
--- NOTE | 2021-02-04 22:25 | NUR ---
SELF PAY COLLECTOR HD NURSE AT BEDSIDE.
[2021-02-05] VITALS (32 sets, daily range): BP systolic 105–143; BP diastolic 58–101
--- NOTE | 2021-02-05 01:21 | NUR ---
KENO WRITER HD COMPLETED 2000 ML REMOVED. PT EXPERIENCED BLE CRAMPING WHEN HD COMPLETE.
--- NOTE | 2021-02-05 04:09 | NUR ---
NEWS WRITER PT SLEEPING DECLINED BLOOD DRAW AND ASKED FOR IT TO BE DONE LATER.
--- NOTE | 2021-02-05 07:30 | NUR ---
RESEARCH SUPPORT SPECIALIST OPENING NOTES Patient is alert and oriented. No s/s of respiratory distress. No c/o pain or discomfort. Patient is on 6 liters 02 via n/c with 02 sat of 98%. Patient's bed is in lowest and locked position. Call light with in reach. Will continue to monitor. Addendum: 02/05/21 at 0941 by LUIZA MORA RN WRONG CHART
--- NOTE | 2021-02-05 07:30 | NUR ---
FUNCTIONAL TESTER OPENING NOTES Patient is alert and oriented. No s/s of respiratory distress. No c/o pain or discomfort. Patient is on 6 liters 02 via n/c with 02 sat of 98%. Patient's bed is in lowest and locked position. Call light with in reach. Will continue to monitor
[2021-02-05] MEDS ORDERED: ASPIRIN 81 MG TAB.CHEW PO SCH (09:00)
[2021-02-05] MEDS: LOSARTAN POTASSIUM 50 MG TABLET PO SCH ×2 (09:05→21:00)
[2021-02-05] MEDS: CARVEDILOL 12.5 MG TABLET PO SCH ×2 (09:06→21:00)
--- NOTE | 2021-02-05 15:00 | NUR ---
Patient was scheduled for HD today but refused stating that his bp of 122/80 is too low for him to receive HD today. Per patient his normal is 170/90. Informed Dr Peraza and received order for Gentle HD, patient still refused.. MD made aware. Patient to received HD tomorrow per MD orders and to have CT of neck with contrast done prior to receiving HD. Patient agreed to HD in am, consent for procedure obtained.
[2021-02-05 15:55] LABS: BASOPHILS % (AUTO) 0.9 % (0.0-2.0); EOSINOPHILS % (AUTO) 3.9 % (0.0-6.0); HEMATOCRIT 28 % (39-51); HEMOGLOBIN 9.4 g/dL (13.5-17.5); LYMPHOCYTES # (AUTO) 0.5 /CMM (0.8-4.8); LYMPHOCYTES % (AUTO) 10.2 % (20.0-44.0); MEAN CORPUSCULAR HGB CONC 34 g/dl (31.0-36.0); MEAN CORPUSCULAR VOLUME 107 fL (80-96); MONOCYTES # (AUTO) 0.4 /CMM (0.1-1.30); MONOCYTES % (AUTO) 8.6 % (2.0-12.0); NEUTROPHILS # (AUTO) 3.6 /CMM (1.8-8.9); NEUTROPHILS % (AUTO) 76.4 % (43.0-81.0); PLATELET COUNT (AUTO) 129 /CMM (150-450); RED BLOOD CELL COUNT(AUTO) 2.58 MIL/uL (4.5-6.0); WHITE BLOOD COUNT (AUTO) 4.8 K/uL (4.3-11.0)
--- NOTE | 2021-02-05 16:04 | NUR ---
Patient had thoracentesis done per order and removed 1750 ml of fluids.
[2021-02-05 16:10] LABS: ALBUMIN 3.1 g/dL (3.4-5.0); BILIRUBIN,TOTAL 1.9 mg/dL (0.2-1.0); CALCIUM, SERUM 9.2 mg/dL (8.5-10.1); MAGNESIUM 2.8 mg/dL (1.8-2.4); PHOSPHORUS 4.2 mg/dL (2.5-4.9); POTASSIUM 4.8 mmol/L (3.5-5.1); TOTAL PROTEIN, SERUM 7.3 g/dL (6.4-8.2)
[2021-02-05 16:12] LABS: CREATININE 8.4 mg/dL (0.6-1.3)
--- NOTE | 2021-02-05 18:46 | NUR ---
CHOCOLATE FINISHER OPERATOR NOTE RECEIVED PATIENT FROM ICU , ALERT ORIENTED X3 ,PLACED ON TELE MONITOR SR HR 75 , LF FA AV FISTULA IN PLACE , HOSPITAL ORIENTATION DONE REFUSED TO CAROLYN FOR BELONGING STATED THAT I WILL RESPONSE FOR MY STUFF, NO SOB NOTED RT FA HL INTACT. ALL NEEDS ATTENDED , WILL CONT TO MONITOR
--- NOTE | 2021-02-05 18:50 | NUR ---
Patient transported to TG with ACLS. On 02 3 liters via n/c, Report given to nurse carrie ROBLEDO. Patient in stable condition. No s/s of respiratory distress. [place] [address],71,18, 99% on 3 liters 02 via n/c, 97.8, 0/10. Nursed endorsed to regarding patient receiving his CT of the neck prior to Hemodialysis. Addendum: 02/05/21 at 1851 by LUIZA MORA RN vitals 110/70
--- NOTE | 2021-02-05 19:00 | NUR ---
RN OPENING NOTE RECEIVED PATIENT IN BED RESTING ALERT ORIENTED X3 VERBALLY RESPONSIVE ON 3L OXYGEN VIA NASAL CANNULA,O2:96% AV FISTULA FOR HD ON LEFT FOREARM INTACT AND IV SITE IS ON RIGHT FOREARM INTACT PATENT AMBULATORY WITH ASSIST BED IN LOW POSITION AND LOCKED,CALL LIGHT WITHIN REACH,SAFETY MEASURE IMPLEMENT,CONTINUE TO MONITOR.
--- NOTE | 2021-02-05 21:49 | NUR ---
RN NOTE PATIENT REFUSED TO TAKE BP MEDS AT 2100 COREG 25MG AND COZAAR 100 MG,EXPLAINED THE RISKS STILL INSISTED NOT TAKING THEM CONTINUE TO MONITOR.
[2021-02-06] VITALS: BP 114/80
[2021-02-06 04:00] VITALS: BP 118/84
--- NOTE | 2021-02-06 06:32 | NUR ---
RN CLOSING NOTE PATIENT REMAINS ON ALERT ORIENTED X3 VERBALLY RESPONSIVE NO SOB NOT ACUTE DISTRESS NOTED,POSSIBLE DIALYSIS TODAY,AND CT ON NECK PRIOR TO DIALYSIS,IV SITE IS ON RIGHT FOREARM INTACT PATENT AND AV SHUNT ON LEFT FOREARM,KEPT CALL LIGHT WITHIN REACH,KEPT COMFORTABLE,ALL NEEDS MET ENDORSE NEXT COMING SHIFT FOR CONTINUATION OF CARE.
--- NOTE | 2021-02-06 07:55 | NUR ---
RN OPENING NOTE PATIENT IS IN BED WITH HOB AT SEMI FOWLERS POSITION. PATIENT IS ON 3L NC WITH NO SIGNS OF LABORED BREATHING. PATIENT IS AOX3. RFA#18 IS PATENT AND INTACT. BED IS LOCKED IN THE LOWEST POSITION, 3 GUARD RAILS RAISED, CALL JONES WITHIN REACH, AND ALL HOSPITAL SAFETY PRECAUTIONS ARE BEING FOLLOWED. WILL CONTINUE TO MONITOR THROUGHOUT SHIFT.
[2021-02-06 07:57] LABS: CALCIUM, SERUM 9.1 mg/dL (8.5-10.1); MAGNESIUM 2.6 mg/dL (1.8-2.4); PHOSPHORUS 4.6 mg/dL (2.5-4.9)
[2021-02-06 08:00] VITALS: BP 126/89
[2021-02-06 08:02] LABS: CREATININE 9.7 mg/dL (0.6-1.3)
[2021-02-06 08:21] LABS: EOSINOPHILS % (AUTO) 5.7 % (0.0-6.0); HEMATOCRIT 29 % (39-51); HEMOGLOBIN 9.9 g/dL (13.5-17.5); LYMPHOCYTES # (AUTO) 0.5 /CMM (0.8-4.8); LYMPHOCYTES % (AUTO) 12.1 % (20.0-44.0); MEAN CORPUSCULAR HGB CONC 34 g/dl (31.0-36.0); MEAN CORPUSCULAR VOLUME 108 fL (80-96); MONOCYTES # (AUTO) 0.3 /CMM (0.1-1.30); MONOCYTES % (AUTO) 8.9 % (2.0-12.0); NEUTROPHILS # (AUTO) 2.8 /CMM (1.8-8.9); NEUTROPHILS % (AUTO) 72.3 % (43.0-81.0); PLATELET COUNT (AUTO) 115 /CMM (150-450); RED BLOOD CELL COUNT(AUTO) 2.69 MIL/uL (4.5-6.0); WHITE BLOOD COUNT (AUTO) 3.8 K/uL (4.3-11.0)
[2021-02-06] MEDS: LOSARTAN POTASSIUM 50 MG TABLET PO SCH ×2 (08:40→08:50)
[2021-02-06] MEDS: CARVEDILOL 12.5 MG TABLET PO SCH ×2 (08:41→08:50)
[2021-02-06 08:50] VITALS: BP 126/89
[2021-02-06] MEDS ORDERED: IV NS 0.9% 250 ML IV ONE (09:17)
[2021-02-06] MEDS ORDERED: IOHEXOL-300 100 ML VIAL IV ONE (09:17)
--- NOTE | 2021-02-06 14:40 | NUR ---
PATIENT WANTS TO GO HOME POST HD.DR. JERICA ALEXANDER NOTIFIED AND WANTS PRIMARY MD TO BE NOTIFIED.
--- NOTE | 2021-02-06 14:42 | NUR ---
DR. CAMARILLO MADE AWARE.NO DISCHARGE ORDER YET WILL DO AMA IF INSITED TO LEAVE,HANY LIU MADE AWARE.
--- NOTE | 2021-02-06 15:40 | NUR ---
RN NOTE PATIENT HAS DECIDED TO LEAVE AMA. EDUCATED PATIENT ON IMPORTANCE OF STAYING ADMITTED AND THE POTENTIAL SIDE EFFECTS OF LEAVING AMA. PATIENT STILL WANTS TO LEAVE AMA. DR. CAMARILLO AND DR. ALEXANDER MADE AWARE.
== END 2021-02-06 16:21 | disposition left against medical advice (07) | DRG 199 ==
LOC: ER 17:29 → ICU 20:09 → TELE1 02-05 18:22 → MEDSG1 02-06 07:47
PROVIDERS: ADMIT Nurse Practitioner Acute Care; ATTEND Student in an Organized Health Care Education/Training Program
PROC: 0W993ZZ Drainage of Right Pleural Cavity, Percutaneous Approach (ICD-10-PCS; principal; 2021-02-05)
PROC: 5A1D70Z Performance of Urinary Filtration, Intermittent, Less than 6 Hours Per Day (ICD-10-PCS; 2021-02-05)
DX: I16.1 Hypertensive emergency (principal); J96.01 Acute respiratory failure with hypoxia; I21.A1 Myocardial infarction type 2; I50.23 Acute on chronic systolic (congestive) heart failure; I31.3 Pericardial effusion (noninflammatory); R18.8 Other ascites; N18.6 End stage renal disease; E87.1 Hypo-osmolality and hyponatremia; K57.92 Diverticulitis of intestine, part unspecified, without perforation or abscess without bleeding; I13.2 Hypertensive heart and chronic kidney disease with heart failure and with stage 5 chronic kidney disease, or end stage renal disease; Z99.2 Dependence on renal dialysis; D53.9 Nutritional anemia, unspecified; F17.210 Nicotine dependence, cigarettes, uncomplicated; Z20.822 Contact with and (suspected) exposure to COVID-19; Z91.19 Patient's noncompliance with other medical treatment and regimen; I42.9 Cardiomyopathy, unspecified
CPT/HCPCS: 36415; 70491-TC; 71045-TC; 80048-TC; 80053-TC; 80076-TC; 83735-TC; 84100-TC; 84484-TC; 85025-TC; 85730-TC; 86706; 86803; 87081-TC; 87340; 90935-TC; 94799-TC; C9803; G0378; J3490; J7050; Q9967

== ENCOUNTER 2021-02-11 18:37 | Inpatient (IN) | payer MEDICAID ==
[~2021-02-11] VITALS: Ht 172.7 cm; Wt 78.9 kg
[~2021-02-11 18:37] MED LIST changes: +HYDR-3980 PO
--- NOTE | 2021-02-11 18:50 | NUR ---
c/o sob 97% on room air, last HD thursday. Patient a/ox4, placed on o2 at 2lpm via nc for comfort. Patient attached to the teletypesetter monitor.
[2021-02-11 19:24] LABS: BASOPHILS % (AUTO) 0.2 % (0.0-2.0); EOSINOPHILS % (AUTO) 1.6 % (0.0-6.0); HEMATOCRIT 24 % (39-51); HEMOGLOBIN 8.1 g/dL (13.5-17.5); LYMPHOCYTES # (AUTO) 0.6 /CMM (0.8-4.8); MEAN CORPUSCULAR HGB CONC 35 g/dl (31.0-36.0); MEAN CORPUSCULAR VOLUME 108 fL (80-96); MONOCYTES # (AUTO) 0.5 /CMM (0.1-1.30); MONOCYTES % (AUTO) 9.3 % (2.0-12.0); NEUTROPHILS # (AUTO) 3.8 /CMM (1.8-8.9); NEUTROPHILS % (AUTO) 75.9 % (43.0-81.0); PLATELET COUNT (AUTO) 142 /CMM (150-450); RED BLOOD CELL COUNT(AUTO) 2.17 MIL/uL (4.5-6.0); WHITE BLOOD COUNT (AUTO) 4.9 K/uL (4.3-11.0)
--- NOTE | 2021-02-11 19:30 | NUR ---
RECEIVED REPORT FROM DAY SHIFT NURSE. PATIENT IS A/OX4, CONNECTED TO SHELL MOLDING ROLLER BLAST OPERATOR AND POX, ON 3L O2 NC TOLERATING WELL.
[2021-02-11 19:47] LABS: ALBUMIN 3.4 g/dL (3.4-5.0); BILIRUBIN,DIRECT 0.3 mg/dL (0.0-0.2); BILIRUBIN,TOTAL 0.9 mg/dL (0.2-1.0); CALCIUM, SERUM 9.1 mg/dL (8.5-10.1); POTASSIUM 3.5 mmol/L (3.5-5.1); TOTAL PROTEIN, SERUM 7.9 g/dL (6.4-8.2)
[2021-02-11 19:49] LABS: CREATININE 8.9 mg/dL (0.6-1.3)
[2021-02-11 20:10] LABS: BAND % (MANUAL) 3 % (0.0-5.0); EOSINOPHILS % (MANUAL) 1 % (0-4); LYMPHOCYTES % (MANUAL) 19 % (16-48); MONOCYTES % (MANUAL) 1 % (0-11.0); NEUTROPHILS % (MANUAL) 76 (42-76)
--- NOTE | 2021-02-11 20:32 | NUR ---
PATIENT SEEN BY DR. PRETTY.
[2021-02-11] MEDS ORDERED: Z GUARD REMEDY 2 OZ OINT TP PRN (21:00)
[2021-02-11] MEDS ORDERED: ONDANSETRON HCL/PF 4 MG/2 ML VIAL IVP PRN (21:00)
[2021-02-11] MEDS ORDERED: ASPIRIN 81 MG TAB.CHEW PO ONE (21:00)
[2021-02-11] MEDS ORDERED: ACETAMINOPHEN 325 MG TABLET PO PRN (21:00)
--- NOTE | 2021-02-11 21:08 | NUR ---
CALL FROM LAB. RAPID COVID NEGATIVE.
--- NOTE | 2021-02-11 21:10 | NUR ---
TELE 321-3
[2021-02-11] MEDS ORDERED: ASPIRIN 81 MG TAB.CHEW ONE (21:41)
--- NOTE | 2021-02-11 21:41 | NUR ---
REPORT GIVEN TO URBAN ON THIRD FLOOR
--- NOTE | 2021-02-11 21:45 | NUR ---
PATIENT TRANSFERRED PER ACLS PROTOCOL TO ROOM 321.
[2021-02-11 21:47] VITALS: BP 170/119
--- NOTE | 2021-02-11 21:47 | NUR ---
UPHOLSTERED GOODS CRAFTER NOTES PATIENT CAME IN VIA GURNEY. A/OX4. AMBULATORY. ADMISSION VS FOLLOW: BP-170/119, HR- 113, T- 98.3, SATURATING 100% IN 2 LPM OXYGEN NC. TELE BOX IN PLACE. WILL TEXT MD FOR THE HIGH BP.
[2021-02-11] MEDS ORDERED: hydrALAZINE HCL IV 20 MG VIAL IV PRN (23:00)
--- NOTE | 2021-02-11 23:52 | NUR ---
RAILROAD PURCHASING AGENT NOTES LET JONNA JIANG KNOW ABOUT THE HIGH BP. SHE PUT IN THE ORDER FOR APRESOLINE IVP. RECHECKED THE BP BEFORE ADMINISTRATION AND IT WAS 161/116. APRESOLINE 0.5ML ADMINISTERED. WILL REASSESS AND CONTINUE TO MONITOR.
[2021-02-12] VITALS (8 sets, daily range): BP systolic 107–169; BP diastolic 62–118
[2021-02-12] MEDS ORDERED: ZOLPIDEM TARTRATE 5 MG TABLET PO PRN
--- NOTE | 2021-02-12 00:40 | NUR ---
LICENSED PHYSICAL THERAPY ASSISTANT NOTES PATIENT ASKED FOR SLEEPING MEDICATION. APOLINAR ORDERED AMBIEN 5MG. CARRIED OUT.
[2021-02-12] MEDS ORDERED: LABETALOL HCL IV 100MG VIAL IV PRN (01:00)
--- NOTE | 2021-02-12 02:37 | NUR ---
RETORT FIRER NOTES RECHECKED BP AND IT WAS 182/122. NOTIFIED THE CHARGE NURSE AND ADMINISTERED LABETALOL 4ML IVP PRN. WILL REASSESS.
--- NOTE | 2021-02-12 03:00 | NUR ---
ATTIC FANS MECHANIC NOTES RECHECKED BP AND IT WAS 166/111. CHARGE NURSE KNOWS. WILL KEEP MONITORING.
--- NOTE | 2021-02-12 03:03 | NUR ---
PRECISION AGRICULTURE TECHNICIAN NOTES PATIENT REFUSED BLOOD DRAW FOR TROPONIN EVEN WITH EDUCATION. PER PATIENT "I DON'T WANT IT DONE OKAY, JUST LET ME SLEEP." DID TELL THE LAB TO TRY TO COME BACK AT 5 AM. CHARGE NURSE NOTIFIED.
--- NOTE | 2021-02-12 05:38 | NUR ---
JEWISH THOUGHT PROFESSOR NOTES PATIENT REFUSED BLOOD WORK AGAIN IN THE AM, EVEN WITH PATIENT TEACHING.
--- NOTE | 2021-02-12 05:53 | NUR ---
CURRENCY COUNTER NOTES ASSISTANT TEACHER PRIMARY IN THE ROOM WITH PATIENT. HE IS GOING TO TAKE THE BLOOD FOR LAB. MADE KNOWN OF THE SOB. WILL CONTINUE TO MONITOR.
--- NOTE | 2021-02-12 06:24 | NUR ---
VENDOR MANAGER NOTES PATIENT IN BED GETTING DIALYSIS. A/OX4. PATIENT EXPERIENCING SOB SINCE ADMITTED LAST NIGHT. PUT ON OXYGEN NC 4LPM. SATURATING WELL. AV FISTULA ON L. ARM. FELT THRILL AND BRUIT. NO BLOOD DRAW/BP SIGN PUT IN PLACE. NO C/O PAIN. BP AND HR HAS BEEN HIGH. MADE MD KNOWN AND ALL ORDERS HAS BEEN CARRIED OUT. SAFETY KEPT IN PLACE THE WHOLE SHIFT: BED IN LOWEST, LOCKED POSITION; CALL LIGHT WITHIN REACH. WILL ENDORSE CARE TO MORNING SHIFT NURSE.
--- NOTE | 2021-02-12 06:28 | NUR ---
REFRACTORY TILE HELPER NOTES CALLED THE LAB TO FISHERIES INSPECTOR BLOOD WORKS FROM DIALYSIS.
--- NOTE | 2021-02-12 06:29 | NUR ---
NUTRITION REPRESENTATIVE NOTES BLOOD PICKED UP ALREADY BY LAB.
--- NOTE | 2021-02-12 07:25 | NUR ---
PHARMACEUTICAL PROCESS ENGINEER OPENING NOTES RECEIVED PATIENT AWAKE IN BED. A/O X4. PATIENT IS CURRENTLY HAVING DIALYSIS. PATIENT IS BREATHING EVENLY AND NONLABORED ON ROOM AIR. PATIENT HAS IV ACCESS ON R WRIST #18 GAUGE. PATIENT HAS L AV FISTULA. PATIENT IS ON STRICT I&O. PATIENT IS ON TELE MONITOR SHOWING SINUS TACHY HR @ 120. SAFETY MEASURES ARE IN PLACE. BED LOW LOCKED AND CALL LIGHT WITHIN REACH. WILL CONTINUE TO MONITOR.
[2021-02-12 07:42] LABS: MAGNESIUM 2.9 mg/dL (1.8-2.4); POTASSIUM 3.7 mmol/L (3.5-5.1)
[2021-02-12 07:48] LABS: CREATININE 9.5 mg/dL (0.6-1.3)
[2021-02-12 08:07] LABS: THYROID STIMULATING HORMONE 5.008 uIU/mL (0.358-3.74)
[2021-02-12 08:16] LABS: BASOPHILS # (AUTO) 0.1 /CMM (0.0-0.2); BASOPHILS % (AUTO) 1.3 % (0.0-2.0); EOSINOPHILS % (AUTO) 1.9 % (0.0-6.0); HEMATOCRIT 23 % (39-51); LYMPHOCYTES # (AUTO) 0.4 /CMM (0.8-4.8); LYMPHOCYTES % (AUTO) 10.7 % (20.0-44.0); MEAN CORPUSCULAR HGB CONC 34 g/dl (31.0-36.0); MEAN CORPUSCULAR VOLUME 109 fL (80-96); MONOCYTES # (AUTO) 0.3 /CMM (0.1-1.30); MONOCYTES % (AUTO) 7.1 % (2.0-12.0); NEUTROPHILS # (AUTO) 3.2 /CMM (1.8-8.9); PLATELET COUNT (AUTO) 130 /CMM (150-450); RED BLOOD CELL COUNT(AUTO) 2.15 MIL/uL (4.5-6.0); WHITE BLOOD COUNT (AUTO) 4.1 K/uL (4.3-11.0)
--- NOTE | 2021-02-12 08:57 | NUR ---
RN NOTES PATIENT HAS COMPLETED DIALYSIS. PER SAND MIXER OPERATOR NURSE 3 LITERS OF FLUIDS WERE REMOVED. VITALS ARE BP 163/99, HR 107, RR 18, TEMP 98.4 AND O2 SAT 97% ON ROOM AIR. WILL CONTINUE TO MONITOR.
[2021-02-12] MEDS: PANTOPRAZOLE 40 MG TABLET.DR PO SCH (08:59)
[2021-02-12] MEDS: ASPIRIN 81 MG TAB.CHEW PO SCH (08:59)
[2021-02-12] MEDS: LOSARTAN POTASSIUM 50 MG TABLET PO SCH ×2 (09:00→16:04)
[2021-02-12] MEDS: CARVEDILOL 12.5 MG TABLET PO SCH ×2 (09:01→21:14)
[2021-02-12] MEDS ORDERED: EPOETIN ALFA (10,000 UNIT) 10,000 UNIT/ML VIAL IV ONE (14:30)
--- NOTE | 2021-02-12 18:29 | NUR ---
INTERNATIONAL LOGISTICS MANAGER CLOSING NOTES RECEIVED PATIENT AWAKE IN BED. A/O X4. PATIENT IS ABLE TO MAKE NEEDS KNOWN. PATIENT IS BREATHING EVENLY AND NONLABORED ON ROOM AIR. PATIENT HAS IV ACCESS ON R WRIST #18 GAUGE PATENT AND INTACT. PATIENT HAS L AV FISTULA. PATIENT IS ON STRICT I&O. PATIENT IS ON TELE MONITOR SHOWING SINUS TACHY HR @ 110. ALL MEDICATIONS WERE GIVEN ORDERED. SAFETY MEASURES ARE IN PLACE. BED LOW LOCKED AND CALL LIGHT WITHIN REACH. WILL ENDORSE TO NEXT SHIFT.
--- NOTE | 2021-02-12 19:32 | NUR ---
MIDDLE SCHOOL MATH TEACHER OPENING NOTES PATIENT WAS SEEN AWAKE SITTING ON HIS BED. PATIENT IS A&O X 4. PATIENT IS HAVING NO RESPIRATORY DISTRESS. PATIENT HAS AN IV ACCESS ON HIS RIGHT WRIST GAUGE#18 WHICH IS INTACT, PATENT, AND FLUSHING WELL. SAFETY PRECAUTIONS IMPLEMENTED: BED LOCKED, SIDE RAILS UP, AND CALL LIGHT IS WITHIN EASY REACH. WILL CONTINUE TO MONITOR THE PATIENT.
[2021-02-13] MEDS: PANTOPRAZOLE 40 MG TABLET.DR PO SCH ×2 (07:30→08:20)
--- NOTE | 2021-02-13 07:45 | NUR ---
BREAKER OILER CLOSING NOTES PATIENT WAS SEEN SLEEPING IN BED. PATIENT IS A&O X 4. PATIENT IS ON 2L OF OXYGEN VIA NASAL CANNULA WITH NO RESPIRATORY DISTRESS NOTED. PATIENT HAS AN IV ACCESS ON HIS RIGHT WRIST GAUGE#18 WHICH IS INTACT, PATENT, AND FLUSHING WELL. SAFETY PRECAUTIONS IMPLEMENTED: BED LOCKED, SIDE RAILS UP, AND CALL LIGHT IS WITHIN EASY REACH. ENDORSED CARE TO DAY SHIFT NURSE.
[2021-02-13 08:00] VITALS: BP 128/85
--- NOTE | 2021-02-13 08:00 | NUR ---
RN OPENING NOTE PATIENT IS AWAKE IN BED RESTING. CURRENTLY A/O X 3 AND FILIPINO SPEAKING. CURRENTLY NO COMPLAINT OF PAIN OR NAUSEA. CURRENTLY ON RA WITH NO SOB OR RESPIRATORY DISTRESS PRESENT. ON ELECTRONICS MECHANIC APPRENTICE. SELF AMBULATORY WITH BATHROOM PRIVILEGES. SKIN IS INTACT. NO EDEMA PRESENT. L AV FISTULA PRESENT. HL PRESENT ON R WRIST 18G. SAFETY MEASURES IN PLACE. SIDE RAILS RAISED. BED LOWERED. CALL LIGHT WITHIN REACH. WILL CONTINUE TO MONITOR.
[2021-02-13] MEDS: ASPIRIN 81 MG TAB.CHEW PO SCH ×2 (08:20→08:27)
[2021-02-13] MEDS: CARVEDILOL 12.5 MG TABLET PO SCH ×2 (08:20→08:27)
[2021-02-13] MEDS: LOSARTAN POTASSIUM 50 MG TABLET PO SCH ×2 (08:21→08:27)
--- NOTE | 2021-02-13 08:27 | NUR ---
SR. DIRECTOR PRODUCT MANAGEMENT NOTE PATIENT REFUSED ALL MORNING MEDICATIONS. PATIENT EDUCATION ON RISKS AND BENEFITS OF MISSING DOSE OF BLOOD PRESSURE MEDICATIONS. BP 128/85, SD OF 78. PATIENT IN NO RESPIRATORY DISTRESS. STATED THAT HIS NORMAL BP IS 140/90 AND THAT TAKING MEDICATIONS AT CURRENT BP GIVES HIM HEADACHE. WILL CONTINUE TO MONITOR.
--- NOTE | 2021-02-13 11:46 | NUR ---
PATIENT REFUSED THORACENTESIS, MD JARVIS AND RN AWARE
--- NOTE | 2021-02-13 13:00 | NUR ---
MILLINERY BLOCKER NOTE PATIENT FINISHED DIALYSIS WITH 3.2 L REMOVED. V/S WNL. WILL CONTINUE TO MONITOR.
[2021-02-13 15:52] LABS: BASOPHILS % (AUTO) 0.7 % (0.0-2.0); EOSINOPHILS % (AUTO) 3.4 % (0.0-6.0); HEMATOCRIT 24 % (39-51); HEMOGLOBIN 8.2 g/dL (13.5-17.5); LYMPHOCYTES # (AUTO) 0.5 /CMM (0.8-4.8); LYMPHOCYTES % (AUTO) 12.6 % (20.0-44.0); MEAN CORPUSCULAR HGB CONC 34 g/dl (31.0-36.0); MEAN CORPUSCULAR VOLUME 111 fL (80-96); MONOCYTES # (AUTO) 0.3 /CMM (0.1-1.30); MONOCYTES % (AUTO) 7.9 % (2.0-12.0); NEUTROPHILS # (AUTO) 3.2 /CMM (1.8-8.9); NEUTROPHILS % (AUTO) 75.4 % (43.0-81.0); PLATELET COUNT (AUTO) 131 /CMM (150-450); RED BLOOD CELL COUNT(AUTO) 2.18 MIL/uL (4.5-6.0); WHITE BLOOD COUNT (AUTO) 4.2 K/uL (4.3-11.0)
[2021-02-13 16:00] VITALS: BP 134/92
[2021-02-13 16:08] LABS: ALBUMIN 2.8 g/dL (3.4-5.0); BILIRUBIN,TOTAL 0.8 mg/dL (0.2-1.0); CALCIUM, SERUM 8.7 mg/dL (8.5-10.1); MAGNESIUM 2.4 mg/dL (1.8-2.4); PHOSPHORUS 2.8 mg/dL (2.5-4.9); POTASSIUM 3.9 mmol/L (3.5-5.1); TOTAL PROTEIN, SERUM 7.1 g/dL (6.4-8.2)
[2021-02-13 16:09] LABS: CREATININE 8.9 mg/dL (0.6-1.3)
--- NOTE | 2021-02-13 16:10 | NUR ---
LEGAL MANAGER NOTE PATIENT DISCHARGED HOME VIA PRIVATE CAR. PATIENT EDUCATED ON F/U WITH DR ALEXANDER. PATIENT EXITCARE UTILIZED AND EDUCATION GIVEN. ID BAND REMOVED. HL REMOVED.
[2021-02-13 16:35] LABS: EOSINOPHILS % (MANUAL) 8 % (0-4); LYMPHOCYTES % (MANUAL) 10 % (16-48); MONOCYTES % (MANUAL) 5 % (0-11.0); NEUTROPHILS % (MANUAL) 77 (42-76)
== END 2021-02-13 16:00 | disposition home or self-care (01) | DRG 194 ==
LOC: ER 18:40 → MED 21:15 → TELE 02-12 02:01 → MED 02-13 10:52
PROVIDERS: ADMIT Registered Nurse
PROC: 5A1D70Z Performance of Urinary Filtration, Intermittent, Less than 6 Hours Per Day (ICD-10-PCS; principal; 2021-02-12)
DX: I13.2 Hypertensive heart and chronic kidney disease with heart failure and with stage 5 chronic kidney disease, or end stage renal disease (principal); J96.01 Acute respiratory failure with hypoxia; I21.A1 Myocardial infarction type 2; N18.6 End stage renal disease; R18.8 Other ascites; J90 Pleural effusion, not elsewhere classified; I31.3 Pericardial effusion (noninflammatory); I16.0 Hypertensive urgency; I50.23 Acute on chronic systolic (congestive) heart failure; Z99.2 Dependence on renal dialysis; D63.1 Anemia in chronic kidney disease; Z91.19 Patient's noncompliance with other medical treatment and regimen; Z79.899 Other long term (current) drug therapy; Z90.49 Acquired absence of other specified parts of digestive tract; Z98.890 Other specified postprocedural states; Z20.822 Contact with and (suspected) exposure to COVID-19; F10.10 Alcohol abuse, uncomplicated; Y90.9 Presence of alcohol in blood, level not specified; F17.200 Nicotine dependence, unspecified, uncomplicated; I42.9 Cardiomyopathy, unspecified; Z87.19 Personal history of other diseases of the digestive system; K72.90 Hepatic failure, unspecified without coma
CPT/HCPCS: 36415; 71045-TC; 80048-TC; 80053-TC; 80061-TC; 80076-TC; 83735-TC; 84100-TC; 84443-TC; 84484-TC; 85025-TC; 85730-TC; 86705; 87081-TC; 90935-TC; C9803; G0378; J0360; J0885; J3490

== ENCOUNTER 2021-02-24 20:58 | Inpatient (IN) | payer MEDICAID ==
[~2021-02-24] VITALS: Ht 172.7 cm; Wt 75.7 kg
--- NOTE | 2021-02-24 21:28 | NUR ---
PRESENTED TO THE ER FOR C/O SOB STARTED TODAY. PT W/ HX OF ESRD ON HD 4 TIMES A WEEK W/ LAST HD YESTERDAY, PT IS GOING TO HAVE NEXT HD TOMORROW, PT AMBULATORY TO BED 12. WAS PLACED ON A MONITOR. WILL CONT TO MONITOR
[2021-02-24 21:58] LABS: BASOPHILS # (AUTO) 0.1 /CMM (0.0-0.2); BASOPHILS % (AUTO) 1.1 % (0.0-2.0); EOSINOPHILS % (AUTO) 3.5 % (0.0-6.0); HEMATOCRIT 25 % (39-51); HEMOGLOBIN 8.5 g/dL (13.5-17.5); LYMPHOCYTES # (AUTO) 0.9 /CMM (0.8-4.8); LYMPHOCYTES % (AUTO) 19.2 % (20.0-44.0); MEAN CORPUSCULAR HGB CONC 34 g/dl (31.0-36.0); MEAN CORPUSCULAR VOLUME 110 fL (80-96); MONOCYTES # (AUTO) 0.5 /CMM (0.1-1.30); MONOCYTES % (AUTO) 9.9 % (2.0-12.0); NEUTROPHILS # (AUTO) 3.2 /CMM (1.8-8.9); NEUTROPHILS % (AUTO) 66.3 % (43.0-81.0); PLATELET COUNT (AUTO) 149 /CMM (150-450); RED BLOOD CELL COUNT(AUTO) 2.26 MIL/uL (4.5-6.0); WHITE BLOOD COUNT (AUTO) 4.8 K/uL (4.3-11.0)
[2021-02-24 22:57] LABS: CALCIUM, SERUM 9.4 mg/dL (8.5-10.1); POTASSIUM 3.8 mmol/L (3.5-5.1)
--- NOTE | 2021-02-24 23:00 | NUR ---
CR 8.4
[2021-02-24 23:01] LABS: CREATININE 8.4 mg/dL (0.6-1.3)
[2021-02-25 00:52] LABS: ALBUMIN 3.4 g/dL (3.4-5.0); BILIRUBIN,DIRECT 0.2 mg/dL (0.0-0.2); BILIRUBIN,TOTAL 0.7 mg/dL (0.2-1.0)
[2021-02-25] MEDS ORDERED: ALPRAZOLAM 0.5 MG TABLET PO ONE (01:00)
[2021-02-25] MEDS ORDERED: ALPRAZOLAM 0.5 MG TABLET ONE (01:03)
--- NOTE | 2021-02-25 01:06 | NUR ---
BED ASSIGNMENT 327-1
--- NOTE | 2021-02-25 01:11 | NUR ---
ATTEMPTED TO GIVE REPORT, STAFF IS CURRENTLY BUSY. WILL CALL BACK.
--- NOTE | 2021-02-25 01:48 | NUR ---
REPORT GIVEN TO MELVIN ROBLEDO FOR SUE.
[2021-02-25 01:49] LABS: EOSINOPHILS % (MANUAL) 4 % (0-4); LYMPHOCYTES % (MANUAL) 20 % (16-48); MONOCYTES % (MANUAL) 10 % (0-11.0); NEUTROPHILS % (MANUAL) 66 (42-76)
[2021-02-25] MEDS ORDERED: ONDANSETRON HCL/PF 4 MG/2 ML VIAL IVP PRN (02:00)
[2021-02-25] MEDS ORDERED: hydrALAZINE HCL IV 20 MG VIAL ONE (02:00)
[2021-02-25] MEDS ORDERED: ACETAMINOPHEN 325 MG TABLET PO PRN (02:00)
[2021-02-25] MEDS ORDERED: hydrALAZINE HCL IV 20 MG VIAL IV PRN ×3 (02:00)
--- NOTE | 2021-02-25 02:54 | NUR ---
PT TRANSFERRED PER ACLS PROTOCOL
[2021-02-25] MEDS: HYDROCODONE/APAP 10/325MG TABLET PO PRN (03:29)
--- NOTE | 2021-02-25 03:29 | NUR ---
DISTRIBUTION CENTER ASSISTANT NOTES PATIENT WAS GIVEN 1 TAB OF NORCO 10/325MG BY MOUTH FOR 8/10 PAIN. WILL CONTINUE TO MONITOR THE PATIENT.
[2021-02-25 04:36] VITALS: BP 171/124
[2021-02-25] MEDS ORDERED: LABETALOL 20 MG/4 ML VIAL IV ONE (05:00)
[2021-02-25] MEDS ORDERED: LABETALOL HCL IV 100MG VIAL ONE (05:16)
--- NOTE | 2021-02-25 08:00 | NUR ---
RN OPENING NOTE PT IS AWAKE IN BED. A/O X3 AND TURKISH SPEAKING. NO COMPLAINT OF PAIN OR NAUSEA. CURRENTLY ON RA WITH NO SOB OR RESPIRATORY DISTRESS PRESENT. SKIN IS INTACT. NO EDEMA PRESENT. PT ON STRICT I&O AND DAILY WEIGHTS. IV PRESENT ON R WRIST 20G AND FLUSHES WELL. AV FISTULA PRESENT ON L ARM. SAFETY MEASURES IN PLACE. SIDE RAILS RAISED. BED LOWERED. CALL LIGHT WITHIN REACH. WILL CONTINUE TO MONITOR.
[2021-02-25] MEDS: LOSARTAN POTASSIUM 50 MG TABLET PO SCH ×2 (08:18→16:50)
[2021-02-25] MEDS: CARVEDILOL 12.5 MG TABLET PO SCH ×2 (08:18→21:33)
[2021-02-25] MEDS: PANTOPRAZOLE 40 MG TABLET.DR PO SCH (08:18)
[2021-02-25 08:30] VITALS: BP 157/106
--- NOTE | 2021-02-25 11:27 | NUR ---
PER RN, SHELTON PT IS ON DIALYSIS UNTIL 13:00. PROCEDURE AND US ABD LIMITED WILL BE DONE AFTER 13:00. RASIOLOGIST DR. THOMAS WAS INFORMED.
[2021-02-25 12:00] VITALS: BP 89/57
[2021-02-25 12:19] LABS: BASOPHILS # (AUTO) 0.1 /CMM (0.0-0.2); BASOPHILS % (AUTO) 1.5 % (0.0-2.0); EOSINOPHILS % (AUTO) 4.5 % (0.0-6.0); HEMATOCRIT 24 % (39-51); HEMOGLOBIN 8.3 g/dL (13.5-17.5); LYMPHOCYTES # (AUTO) 0.4 /CMM (0.8-4.8); MEAN CORPUSCULAR HGB CONC 35 g/dl (31.0-36.0); MEAN CORPUSCULAR VOLUME 110 fL (80-96); MONOCYTES # (AUTO) 0.3 /CMM (0.1-1.30); MONOCYTES % (AUTO) 8.2 % (2.0-12.0); NEUTROPHILS # (AUTO) 2.8 /CMM (1.8-8.9); NEUTROPHILS % (AUTO) 74.8 % (43.0-81.0); PLATELET COUNT (AUTO) 122 /CMM (150-450); RED BLOOD CELL COUNT(AUTO) 2.19 MIL/uL (4.5-6.0); WHITE BLOOD COUNT (AUTO) 3.7 K/uL (4.3-11.0)
[2021-02-25 12:29] LABS: CALCIUM, SERUM 8.8 mg/dL (8.5-10.1); CREATININE 5.3 mg/dL (0.6-1.3); MAGNESIUM 2.2 mg/dL (1.8-2.4); POTASSIUM 3.4 mmol/L (3.5-5.1)
[2021-02-25 12:50] LABS: PHOSPHORUS 3.2 mg/dL (2.5-4.9)
[2021-02-25] MEDS ORDERED: EPOETIN ALFA-EPBX 10,000 UNIT/ML VIAL IV ONE (15:00)
[2021-02-25] MEDS ORDERED: EPOETIN ALFA (10,000 UNIT) 10,000 UNIT/ML VIAL IV ONE (15:00)
[2021-02-25 15:59] VITALS: BP 128/78
--- NOTE | 2021-02-25 16:51 | NUR ---
RN NOTE PT REFUSED BLOOD PRESSURE MED. COMPLAINT OF FEELING DIZZY AND DOUBLE VISION WHEN TAKING MEDS WHEN BLOOD PRESSURE IS BELOW 140. EDUCATED ON RISKS AND BENEFITS OF REFUSING MEDICATION. WILL CONTINUE TO MONITOR
--- NOTE | 2021-02-25 18:54 | NUR ---
RN CLOSING NOTE PT IS AWAKE IN BED. A/O X3 AND HUNGARIAN SPEAKING. NO COMPLAINT OF PAIN OR NAUSEA. CURRENTLY ON RA WITH NO SOB OR RESPIRATORY DISTRESS PRESENT. SKIN IS INTACT. NO EDEMA PRESENT. PT ON STRICT I&O AND DAILY WEIGHTS. IV PRESENT ON R WRIST 20G AND FLUSHES WELL. AV FISTULA PRESENT ON L ARM. SAFETY MEASURES IN PLACE. SIDE RAILS RAISED. BED LOWERED. CALL LIGHT WITHIN REACH. ROUTINE MEDS GIVEN. REPORT TO BE GIVEN TO NIGHT NURSE FOR SUE.
[2021-02-25 20:00] VITALS: BP 133/83
--- NOTE | 2021-02-25 21:06 | NUR ---
MS/TELE/RN PATIENT IS HUNGRY, CURRENT DIET ORDER IS NPO ORDERED BY DR. JERICA ALEXANDER, MADE A CALL TO DR. ALEXANDER, RENAL DIET ORDER WAS RECEIVED, ORDER CARRIED OUT.
[2021-02-26] VITALS: BP 119/76
--- NOTE | 2021-02-26 01:20 | NUR ---
MS/TELE/RN PATIENT IS SLEEPING AT THIS TIME, APPEAR COMFORTABLE, NO SIGNS OF DISTRESS NOTED, CALL LIGHT IN REACH, WILL CONTINUE TO MONITOR.
--- NOTE | 2021-02-26 04:32 | NUR ---
MS/TELE/RN VITAL SIGNS NOT DONE AT 0400 PATIENT DOES NOT WANT TO BE BOTHERED WHEN SLEEPING.
--- NOTE | 2021-02-26 06:27 | NUR ---
MS/TELE/RN PATIENT IS AWAKE, COMFORTABLE, NO C/O PAIN, NO DISTRESS NOTED, CALL LIGHT IN REACH, ALL NEEDS ATTENDED AT THIS TIME, WILL CONTINUE TO MONITOR.
--- NOTE | 2021-02-26 08:00 | NUR ---
RN OPENING NOTE PT IS AWAKE IN BED. A/O X3 AND NEPALI SPEAKING. NO COMPLAINT OF PAIN OR NAUSEA. CURRENTLY ON RA WITH NO SOB OR RESPIRATORY DISTRESS PRESENT. SKIN IS INTACT. NO EDEMA PRESENT. PT ON STRICT I&O. IV PRESENT ON R WRIST 20G AND FLUSHES WELL. AV FISTULA PRESENT ON L ARM. SAFETY MEASURES IN PLACE. SIDE RAILS RAISED. BED LOWERED. CALL LIGHT WITHIN REACH. WILL CONTINUE TO MONITOR.
[2021-02-26 08:16] VITALS: BP 119/59
[2021-02-26] MEDS: CARVEDILOL 12.5 MG TABLET PO SCH ×2 (09:00→21:00)
[2021-02-26] MEDS: LOSARTAN POTASSIUM 50 MG TABLET PO SCH ×2 (09:00→17:00)
[2021-02-26] MEDS: PANTOPRAZOLE 40 MG TABLET.DR PO SCH (09:24)
[2021-02-26] MEDS ORDERED: ALBUMIN 25% 25 GM in PREMIX 1 EA IV PRN (12:30)
[2021-02-26 15:01] LABS: BASOPHILS % (AUTO) 0.4 % (0.0-2.0); EOSINOPHILS % (AUTO) 4.9 % (0.0-6.0); HEMATOCRIT 22 % (39-51); HEMOGLOBIN 7.6 g/dL (13.5-17.5); LYMPHOCYTES # (AUTO) 0.5 /CMM (0.8-4.8); LYMPHOCYTES % (AUTO) 12.9 % (20.0-44.0); MEAN CORPUSCULAR HGB CONC 34 g/dl (31.0-36.0); MEAN CORPUSCULAR VOLUME 110 fL (80-96); MONOCYTES # (AUTO) 0.3 /CMM (0.1-1.30); MONOCYTES % (AUTO) 8.2 % (2.0-12.0); NEUTROPHILS # (AUTO) 2.8 /CMM (1.8-8.9); NEUTROPHILS % (AUTO) 73.6 % (43.0-81.0); PLATELET COUNT (AUTO) 104 /CMM (150-450); RED BLOOD CELL COUNT(AUTO) 2.04 MIL/uL (4.5-6.0); WHITE BLOOD COUNT (AUTO) 3.8 K/uL (4.3-11.0)
[2021-02-26 15:28] LABS: CALCIUM, SERUM 8.7 mg/dL (8.5-10.1); CREATININE 5.7 mg/dL (0.6-1.3); MAGNESIUM 2.2 mg/dL (1.8-2.4); PHOSPHORUS 2.9 mg/dL (2.5-4.9); POTASSIUM 3.2 mmol/L (3.5-5.1)
[2021-02-26 16:00] VITALS: BP 126/75
--- NOTE | 2021-02-26 16:00 | NUR ---
RN NOTE PT FINISHED HD WITH 3.6L OF FLUID REMOVED. NO SIGNS OF SOB OR RESPIRATORY DISTRESS. V/S STABLE. WILL CONTINUE TO MONITOR.
--- NOTE | 2021-02-26 18:12 | NUR ---
RN CLOSING NOTE PT IS AWAKE IN BED. A/O X3 AND BULGARIAN SPEAKING. NO COMPLAINT OF PAIN OR NAUSEA. CURRENTLY ON RA WITH NO SOB OR RESPIRATORY DISTRESS PRESENT. SKIN IS INTACT. NO EDEMA PRESENT. IV PRESENT ON R WRIST 20G AND FLUSHES WELL. AV FISTULA PRESENT ON L ARM. SAFETY MEASURES IN PLACE. SIDE RAILS RAISED. BED LOWERED. CALL LIGHT WITHIN REACH. ROUTINE MEDS GIVEN. REPORT TO BE GIVEN TO NIGHT NURSE FOR SUE.
[2021-02-26] MEDS: HYDROCODONE/APAP 10/325MG TABLET PO PRN (20:00)
--- NOTE | 2021-02-26 20:01 | NUR ---
MS/TELE/RN PATIENT IS AWAKE, ALERT, ORIENTED, C/O PAIN 10/10, IN LEFT ARM, DIALYSIS FISTULA, MEDICATE WITH NORCO 1 TAB PO ORDERED, WILL MONITORL
[2021-02-26 20:11] VITALS: BP 139/90
--- NOTE | 2021-02-26 21:15 | NUR ---
MS/TELE/RN PATIENT REFUSED COREG 25 MG AT 2100, PER PATIENT IF HIS BP GOES DOWN HE FEELS DIZZY. "WHAT IS NORMAL BP FOR OTHERS IS NOT NORMAL TO ME", PATIENT STATED. EDUCATED ON IMPORTANCE OF THE MEDICATION, VERBALIZED UNDERSTANDING BUT STILL REFUSED.
--- NOTE | 2021-02-27 00:51 | NUR ---
MS/TELE/RN PATIENT IS SLEEPING AT THIS TIME, APPEAR COMFORTABLE, NO SIGNS OF DISTRESS NOTED, CALL LIGHT IN REACH, WILL CONTINUE TO MONITOR.
--- NOTE | 2021-02-27 06:09 | NUR ---
MS/TELE/RN PATIENT IS STILL SLEEPING AT THIS TIME, APPEAR COMFORTABLE, NO SIGNS OF DISTRESS NOTED, PATIENT HAD AN ON AND OFF SLEEP DURING THE SHIFT, ALL NEEDS ATTENDED AT THIS TIME, WILL CONTINUE TO MONITOR.
--- NOTE | 2021-02-27 07:20 | NUR ---
MS RN RECEIVED PATIENT,AWAKE,ALERT,ORIENTED X4,NOT IN ANY FORM OF DISTRESS, HD PATIENT, CALL LIGHT IN PLACE, PATIENT AMUBLATED TO THE BATHROOM, PATIENT IS RESPONSIVE AND COOPERATIVE. VITAL SIGNS 141/96, RR 16, PULSE IS 99. PATIENT IS ON NC 2L. PATIENT DENIES PAIN AT THIS TIME WILL MONITOR THE PT
[2021-02-27] MEDS: PANTOPRAZOLE 40 MG TABLET.DR PO SCH (07:30)
[2021-02-27 08:00] VITALS: BP 141/96
[2021-02-27] MEDS: CARVEDILOL 12.5 MG TABLET PO SCH (08:55)
[2021-02-27 08:57] VITALS: BP 141/96
[2021-02-27] MEDS: LOSARTAN POTASSIUM 50 MG TABLET PO SCH (08:57)
--- NOTE | 2021-02-27 09:00 | NUR ---
MS RN PT SERVED, DUE MEDICATIONS GIVEN. PATIENT TOLERATED WELL
--- NOTE | 2021-02-27 14:00 | NUR ---
MS RN NOTE PT WAS SEEN BY DR ALEXANDER. WITH ORDERS MADE AND CARRIED OUT, CLEARED BY PNP AND TEXTED DR BROOKS FOR DISCHARGE.
--- NOTE | 2021-02-27 16:00 | NUR ---
MS SCANNING COORDINATOR PATIENT RECEIVED INSTRUCTION FOR DISCHARGE AND FOLLOW UP. PT WAS STABLE UPON DISCHARGE PT WAS RESPONSIVE AND CORDINATED PT VERBALIZED UNDERSTANDING OF DISCHARGE INSTRUCTIONS GIVEN
== END 2021-02-27 16:05 | disposition home or self-care (01) | DRG 194 ==
LOC: ER 20:58 → TELE 02-25 01:14 → MED 02-26 08:23
PROVIDERS: ADMIT Registered Nurse; ATTEND Internal Medicine
PROC: 0W993ZZ Drainage of Right Pleural Cavity, Percutaneous Approach (ICD-10-PCS; principal; 2021-02-25)
PROC: 5A1D70Z Performance of Urinary Filtration, Intermittent, Less than 6 Hours Per Day (ICD-10-PCS; 2021-02-25)
DX: I13.2 Hypertensive heart and chronic kidney disease with heart failure and with stage 5 chronic kidney disease, or end stage renal disease (principal); I21.A1 Myocardial infarction type 2; I31.3 Pericardial effusion (noninflammatory); N18.6 End stage renal disease; R18.8 Other ascites; I42.9 Cardiomyopathy, unspecified; K72.90 Hepatic failure, unspecified without coma; D63.1 Anemia in chronic kidney disease; I50.23 Acute on chronic systolic (congestive) heart failure; F17.200 Nicotine dependence, unspecified, uncomplicated; Z99.2 Dependence on renal dialysis; Z91.19 Patient's noncompliance with other medical treatment and regimen; F10.10 Alcohol abuse, uncomplicated; Z20.822 Contact with and (suspected) exposure to COVID-19
CPT/HCPCS: 36415; 71045-TC; 71250-TC; 76705-TC; 80048-TC; 80076-TC; 83735-TC; 83880; 84100-TC; 84484-TC; 85025-TC; 85730-TC; 87081-TC; 90935-TC; 93307-TC; A4216; A6403; C9803; G0378; J0360; J0885; J3490; P9047

== ENCOUNTER 2021-04-24 17:28 | Inpatient (IN) | payer MEDICAID ==
[~2021-04-24] VITALS: Ht 172.7 cm; Wt 75.8 kg
--- NOTE | 2021-04-24 02:20 | NUR ---
PT TRANSPORTED VIA GURNEY TO UNIT AT THIS TIME. PT ADMITTED TO TELE. AOX4 ABLE TO MAKE NEEDS KNOWN. ON 2LNC OXYGEN, NO SOB NOTED. PT ON EXTERNAL BRATTICE BUILDER READING ST 120. PT DENIES PAIN OR DISCOMFORT AT THIS TIME. PT REFUSED TO BE ASSESSED. ALL BELONGINGS ACCOUNTED FOR AND SIGNED BY PATIENT. IV ACCESS NOTED ON RFA G#18SL INTACT, PATENT, AND FLUSHING WELL. SAFETY PRECAUTIONS IN PLACE AND MAINTAINED AT ALL TIMES. BED IN LOWEST LOCKED POSITION, HOB ELEVATED, SIDE RAILS UP X2. CALL LIGHT AND TABLE WITHIN REACH, BED ALARM ON. WILL CONTINUE TO MONITOR. Addendum: 04/25/21 at 0849 by MARILYN CHAMBERLAIN RN PT TRANSPORTED VIA GURNEY TO UNIT AT THIS TIME. REPORTED RECEIVED FROM HENOK TIWARI RN. PT ADMITTED TO TELE. AOX4 ABLE TO MAKE NEEDS KNOWN. ON 2LNC OXYGEN, NO SOB NOTED. PT ON EXTERNAL BRATTICE BUILDER READING ST 120. PT DENIES PAIN OR DISCOMFORT AT THIS TIME. PT REFUSED TO BE ASSESSED. ALL BELONGINGS ACCOUNTED FOR AND SIGNED BY PATIENT. IV ACCESS NOTED ON RFA G#18SL INTACT, PATENT, AND FLUSHING WELL. SAFETY PRECAUTIONS IN PLACE AND MAINTAINED AT ALL TIMES. BED IN LOWEST LOCKED POSITION, HOB ELEVATED, SIDE RAILS UP X2. CALL LIGHT AND TABLE WITHIN REACH, BED ALARM ON. WILL CONTINUE TO MONITOR.
--- NOTE | 2021-04-24 18:01 | NUR ---
THE PATIENT BIBS FOR PERSISTENT BILATERAL LEG EDEMA X 1 WEEK,LAST DIALYSIS TREATMENT WAS YESTERDAY. IN ROOM AIR AND DENIES SOB. RESPIRATION REGULAR AND UNLABORED. ATTACHED TO THE MONITOR.
[2021-04-24 18:17] LABS: BASOPHILS # (AUTO) 0.1 K/uL (0.0-0.2); HEMOGLOBIN 9.9 g/dL (13.5-17.5); LYMPHOCYTES # (AUTO) 0.7 K/uL (0.8-4.8); MONOCYTES # (AUTO) 0.4 K/uL (0.1-1.30)
[2021-04-24 18:20] LABS: BASOPHILS % (AUTO) 1.2 % (0.0-2.0); EOSINOPHILS % (AUTO) 2.2 % (0.0-6.0); HEMATOCRIT 29 % (39-51); LYMPHOCYTES % (AUTO) 11.6 % (20.0-44.0); MEAN CORPUSCULAR HGB CONC 35 g/dl (31.0-36.0); MEAN CORPUSCULAR VOLUME 113 fL (80-96); MONOCYTES % (AUTO) 6.4 % (2.0-12.0); NEUTROPHILS # (AUTO) 4.4 K/uL (1.8-8.9); NEUTROPHILS % (AUTO) 78.6 % (43.0-81.0); PLATELET COUNT (AUTO) 122 K/uL (150-450); RED BLOOD CELL COUNT(AUTO) 2.54 MIL/uL (4.5-6.0); WHITE BLOOD COUNT (AUTO) 5.7 K/uL (4.3-11.0)
[2021-04-24 18:34] LABS: ALBUMIN 3.4 g/dL (3.4-5.0); BILIRUBIN,DIRECT 0.4 mg/dL (0.0-0.2); BILIRUBIN,TOTAL 0.9 mg/dL (0.2-1.0); CALCIUM, SERUM 9.2 mg/dL (8.5-10.1); POTASSIUM 3.5 mmol/L (3.5-5.1); TOTAL PROTEIN, SERUM 7.9 g/dL (6.4-8.2)
[2021-04-24 18:43] LABS: CREATININE 9.1 mg/dL (0.6-1.3)
[2021-04-24 18:48] LABS: EOSINOPHILS % (MANUAL) 3 % (0-4); LYMPHOCYTES % (MANUAL) 15 % (16-48); MONOCYTES % (MANUAL) 7 % (0-11.0); NEUTROPHILS % (MANUAL) 75 (42-76)
[2021-04-24] MEDS ORDERED: IPRATROPIUM NEB FS 0.5 MG/2.5 ML AMPUL.NEB NEB ONE (21:00)
[2021-04-24] MEDS ORDERED: ALBUTEROL FS 2.5 MG/0.5 ML VIAL.NEB NEB ONE (21:00)
[2021-04-24] MEDS ORDERED: IPRATROPIUM NEB FS 0.5 MG/2.5 ML AMPUL.NEB ONE (21:14)
--- NOTE | 2021-04-24 21:14 | NUR ---
spoke to rt for breathing tx
--- NOTE | 2021-04-24 21:28 | NUR ---
rt at bedside
[2021-04-24] MEDS ORDERED: ONDANSETRON HCL/PF 4 MG/2 ML VIAL IVP PRN (21:30)
[2021-04-24] MEDS ORDERED: ACETAMINOPHEN 325 MG TABLET PO PRN (21:30)
[2021-04-24] MEDS ORDERED: HYDROCODONE/APAP 5/325MG TABLET PO PRN (21:30)
[2021-04-24] MEDS ORDERED: ALBUTEROL FS 2.5 MG/0.5 ML VIAL.NEB NEB PRN (21:30)
[2021-04-24] MEDS ORDERED: Z GUARD REMEDY 2 OZ OINT TP PRN (21:30)
[2021-04-24] MEDS ORDERED: IPRATROPIUM BROMIDE 14 GM INHALER (or 12.9 GM) IH PRN (21:30)
[2021-04-24] MEDS ORDERED: ASPIRIN 81 MG TAB.CHEW PO ONE (21:30)
[2021-04-24] MEDS ORDERED: ASPIRIN 81 MG TAB.CHEW ONE (21:37)
[2021-04-24] MEDS ORDERED: NITROGLYCERIN PACKET 1 GM PACKET TOP ONE (22:00)
--- NOTE | 2021-04-24 22:12 | NUR ---
TELE 313-7
--- NOTE | 2021-04-24 22:22 | NUR ---
gave report to elmo daniel for joe
[2021-04-24 22:40] VITALS: BP 176/133
[2021-04-25] VITALS (7 sets, daily range): BP systolic 105–177; BP diastolic 46–132
[2021-04-25] MEDS ORDERED: hydrALAZINE HCL IV 20 MG VIAL IV PRN (00:30)
--- NOTE | 2021-04-25 06:00 | NUR ---
RN CLOSING NOTE PT IS IN BED AND AWAKE. NO SOB, NO PAIN. WILL ENDORSE TO ONCOMING NURSE FOR SUE..
[2021-04-25] MEDS ORDERED: IPRATROPIUM NEB FS 0.5 MG/2.5 ML AMPUL.NEB HHN PRN (07:00)
--- NOTE | 2021-04-25 07:26 | NUR ---
RN NOTES PATIENT SEEN AMBULATING TO THE BATHROOM. A/O X4, VERBALLY RESPONSIVE, ABLE TO MAKE NEEDS KNOWN. BREATHING EVEN AND UNLABORED ON ROOM AIR, NOT IN ACUTE DISTRESS. NOTED W/ LEFT AV FISTULA AND RFA IV LINE INTACT. SAFETY MEASURES IN PLACE. WILL CONTINUE TO MONITOR.
--- NOTE | 2021-04-25 07:59 | NUR ---
RN NOTES CONSENT FORM SIGNED BY PATIENT FOR HEMODIALYSIS AND US-GUIDED THORACENTESIS PER DR. ALEXANDER'S ORDERS.
[2021-04-25] MEDS ORDERED: EPOETIN ALFA-EPBX 10,000 UNIT/ML VIAL IV ONE (08:00)
[2021-04-25] MEDS: CARVEDILOL 12.5 MG TABLET PO SCH ×2 (08:38→17:00)
[2021-04-25] MEDS: LOSARTAN POTASSIUM 50 MG TABLET PO SCH ×2 (08:38→17:00)
[2021-04-25] MEDS: PANTOPRAZOLE 40 MG VIAL IV SCH (08:38)
--- NOTE | 2021-04-25 13:25 | NUR ---
RN NOTES CANT GANG SAWYER CURRENTLY AT BEDSIDE FOR US-GUIDED THORACENTESIS PROCEDURE.
--- NOTE | 2021-04-25 13:49 | NUR ---
RN NOTES S/P THORACENTESIS PROCEDURE; OUTPUT OF 1300CC PER DEVELOPMENT ANALYST. PROCEDURE TOLERATED WELL. STAT CXR ORDERED. DR. ALEXANDER AT BEDSIDE TO SEE PATIENT.
--- NOTE | 2021-04-25 16:23 | NUR ---
RN NOTES PATIENT REFUSED BLOOD DRAW X3 FOR LABS TODAY; EXPLAINED IMPORTANCE OF LABS FOR MONITORING BUT PATIENT STILL REFUSED. RIGHT TO REFUSE RESPECTED.
--- NOTE | 2021-04-25 18:11 | NUR ---
RN NOTES BP MEDICATIONS REFUSED BY PATIENT; BP IS 111/70, HR IS 85. PER PATIENT, HIS BP MIGHT GO DOWN FURTHER IF HE TAKES MEDICATIONS AND HAS DIALYSIS LATER.
--- NOTE | 2021-04-25 19:40 | NUR ---
FRUIT THINNER MACHINE OPERATOR NOTES PATIENT IN BED, AWAKE, RESTING, ALERT AND ORIENTED X 4. BREATHING EVEN AND UNLABORED ON ROOM AIR. SHOWS NO SIGNS OF ACUTE RESPIRATORY DISTRESS. NO ACUTE PAIN. IV CLEAN DRY AND INTACT. AND L AV FISTULA DRESSING INTACT. TELE MONITOR ST. AWAITING DIALYSIS TONIGHT. SAFETY PRECAUTIONS IN PLACE. BED IN LOWEST POSITION, LOCKED, AND CALL LIGHT KEPT WITHIN REACH. WILL CONTINUE TO MONITOR.
[2021-04-26] VITALS: BP 137/89
--- NOTE | 2021-04-26 01:24 | NUR ---
FOOTWEAR SALES COORDINATOR NOTES COMPLETED HD 2500 OUT, PT IN STABLE CONDITION
[2021-04-26 04:00] VITALS: BP 118/80
--- NOTE | 2021-04-26 06:32 | NUR ---
METAL BOX MAKER NOTES PATIENT IN BED, ASLEEP, ALERT AND ORIENTED X 4. BREATHING EVEN AND UNLABORED ON ROOM AIR. SHOWS NO SIGNS OF ACUTE RESPIRATORY DISTRESS. NO ACUTE PAIN. IV CLEAN DRY AND INTACT. AND L AV FISTULA DRESSING INTACT. TELE MONITOR ST. COMPLETED DIALYSIS. REFUSED MORNING LAB DRAW. ALL DUE MEDICATIONS GIVEN. ALL NEEDS ATTENDED TO. SAFETY PRECAUTIONS IN PLACE. BED IN LOWEST POSITION, LOCKED, AND CALL LIGHT KEPT WITHIN REACH. WILL ENDORSE TO ONCOMING NURSE.
--- NOTE | 2021-04-26 07:25 | NUR ---
RN NOTES PATIENT RESTING IN BED, EYES CLOSED, ABLE TO BE AWAKENED. A/O X4, VERBALLY RESPONSIVE AND ABLE TO MAKE NEEDS KNOWN. BREATHING EVEN AND UNLABORED, TOLERATING ROOM AIR. IV LINE AND AV FISTULA SITES CLEAN AND IN PLACE. ON CARDIAC MONITORING, READING OF SINUS TACH, HR IN THE 120'S, NO CARDIAC DISTRESS NOTED. HAD HD LAST NIGHT PER MANAGER LICENSING RN. SAFETY MEASURES IN PLACE. WILL CONTINUE TO MONITOR.
[2021-04-26 08:00] VITALS: BP 129/87
[2021-04-26] MEDS: CARVEDILOL 12.5 MG TABLET PO SCH ×2 (08:37→17:00)
[2021-04-26] MEDS: LOSARTAN POTASSIUM 50 MG TABLET PO SCH ×2 (08:37→17:00)
[2021-04-26] MEDS: PANTOPRAZOLE 40 MG VIAL IV SCH (08:37)
[2021-04-26 12:00] VITALS: BP 127/85
--- NOTE | 2021-04-26 12:28 | NUR ---
RN NOTES PATIENT INQUIRED IF HE CAN HAVE PARACENTESIS AND IF HE'S GOING TO HAVE HD TODAY TO ASK DR. ALEXANDER. PAGED DR. ALEXANDER, AWAITING CALL BACK.
--- NOTE | 2021-04-26 14:00 | NUR ---
RN NOTES ARELY LOVE NP, CURRENTLY IN THE UNIT AND MADE AWARE OF PATIENT'S CONCERN; WILL INFORM DR. ALEXANDER.
--- NOTE | 2021-04-26 14:22 | NUR ---
RN NOTES PER SHAYAN MCGEE FOR PATIENT TO HAVE PARACENTESIS; ORDER NOTED. CONSENT FORM SIGNED BY PATIENT. SPOKE W/ SAMANTHA FROM RADIOLOGY AND WILL DO THE PROCEDURE TODAY.
[2021-04-26 16:00] VITALS: BP 130/93
--- NOTE | 2021-04-26 16:10 | NUR ---
RN NOTES SPOKE W/ SAMANTHA FROM RADIOLOGY; CURRENTLY IN THE ER AT THIS TIME BUT THEY WILL TRY TO DO PARACENTESIS LATER.
--- NOTE | 2021-04-26 17:09 | NUR ---
RN NOTES PATIENT REFUSED BP MEDS IN THE AFTERNOON. BP IS 130/93, HR IS 81. INFORMED THAT BP/HR IS W/IN PARAMETERS TO ADMINISTER MEDICATIONS BUT PATIENT REFUSED BECAUSE HIS BP MIGHT GO DOWN IF HE GETS DIALYSIS TONIGHT. INFORMED ABOUT RISKS OF REFUSING BP MEDS AND PATIENT VERBALIZED UNDERSTANDING BUT STILL REFUSED. RIGHT TO REFUSE RESPECTED. WILL CONTINUE TO MONITOR.
--- NOTE | 2021-04-26 18:42 | NUR ---
RN NOTES PATIENT SITTING AT BEDSIDE, AWAKE AND VERBALLY RESPONSIVE. BREATHING EVEN AND UNLABORED, TOLERATING ROOM AIR. DRESSING REINFORCED ON LEFT AV FISTULA, NO BLEEDING NOTED AT THIS TIME. W/ STANDING ORDER FOR US-GUIDED PARACENTESIS; MAY DO PROCEDURE TOMORROW PER MANAGER BANKING. IV LINE INTACT AND PATENT. PATIENT IS AMBULATORY AND ABLE TO USE RESTROOM. SAFETY MEASURES MAINTAINED. WILL ENDORSE TO WEBLOGIC ADMINISTRATOR RN FOR SUE.
[2021-04-26 21:02] VITALS: BP 139/97
[2021-04-27 04:35] VITALS: BP 159/96
--- NOTE | 2021-04-27 07:15 | NUR ---
RN OPENING NOTE Received patient asleep in bed appears calm and relaxed no signs of distress. S/P thoracentesis no SOB or chest pain. Noted with L AV fistula and RFA #18 SL flushes well. Safety measures maintained. Bed locked and on lowest. Call light within reach. Will cont to monitor.
[2021-04-27 08:00] VITALS: BP 156/90
--- NOTE | 2021-04-27 08:52 | NUR ---
pt refused pantoprazole. put on waste bottle.
[2021-04-27] MEDS: LOSARTAN POTASSIUM 50 MG TABLET PO SCH ×2 (09:00→16:01)
[2021-04-27] MEDS ORDERED: PANTOPRAZOLE 40 MG TABLET.DR PO SCH (09:00)
[2021-04-27] MEDS: CARVEDILOL 12.5 MG TABLET PO SCH ×2 (09:00→16:01)
--- NOTE | 2021-04-27 14:00 | NUR ---
dialysis at bedside
--- NOTE | 2021-04-27 14:50 | NUR ---
per ultz not enough fluid for paracentesis
--- NOTE | 2021-04-27 15:41 | NUR ---
2.5 liters out from dialysis
--- NOTE | 2021-04-27 15:43 | NUR ---
Discharge instructions given to patient. Gave paperwork. He will drive himself home.
[2021-04-27 16:01] VITALS: BP 159/101
--- NOTE | 2021-04-27 16:17 | NUR ---
Removed IV line on right forearm no signs of bleeding applied dry dressing and pressure. Patient walked himself out of the unit. Offered to take him downstairs patient refused.
== END 2021-04-27 16:20 | disposition home or self-care (01) | DRG 194 ==
LOC: ER 17:30 → TELE 22:17 → MED 04-27 10:14
PROVIDERS: ADMIT Registered Nurse; ATTEND Hospitalist
PROC: 0W993ZZ Drainage of Right Pleural Cavity, Percutaneous Approach (ICD-10-PCS; principal; 2021-04-25)
PROC: 5A1D70Z Performance of Urinary Filtration, Intermittent, Less than 6 Hours Per Day (ICD-10-PCS; 2021-04-25)
PROC: 0W9G3ZZ Drainage of Peritoneal Cavity, Percutaneous Approach (ICD-10-PCS; 2021-04-26)
DX: I13.2 Hypertensive heart and chronic kidney disease with heart failure and with stage 5 chronic kidney disease, or end stage renal disease (principal); J96.01 Acute respiratory failure with hypoxia; I21.A1 Myocardial infarction type 2; N18.6 End stage renal disease; R18.8 Other ascites; I31.3 Pericardial effusion (noninflammatory); I42.9 Cardiomyopathy, unspecified; I50.23 Acute on chronic systolic (congestive) heart failure; I25.10 Atherosclerotic heart disease of native coronary artery without angina pectoris; Z99.2 Dependence on renal dialysis; D63.1 Anemia in chronic kidney disease; F10.10 Alcohol abuse, uncomplicated; F17.200 Nicotine dependence, unspecified, uncomplicated; Z20.822 Contact with and (suspected) exposure to COVID-19; Z91.19 Patient's noncompliance with other medical treatment and regimen; K76.89 Other specified diseases of liver
CPT/HCPCS: 36415; 71045-TC; 76942-TC; 80048-TC; 80076-TC; 84484-TC; 85025-TC; 85730-TC; 87081-TC; 90935-TC; 93307-TC; 93970-TC; 94799-TC; C9113; C9803; G0378; J0360; J0885

== ENCOUNTER 2021-06-03 08:32 | Inpatient (IN) | payer MEDICAID ==
[~2021-06-03] VITALS: Ht 172.7 cm; Wt 79.4 kg
--- NOTE | 2021-06-03 08:40 | NUR ---
c/o sob, last HD thursday, and HD cath mulfunction needs perm cath 94% on room air. Patient a/ox4, breathing even and unlabored, patient feels short of breath, applied o2 at 1lpm via nc for comfort. Dr. Weller at bedside for eval.
--- NOTE | 2021-06-03 08:45 | NUR ---
IV LINE ESTABLISHED, BLOOD DRAWN AND SENT TO LAB.
[2021-06-03 08:59] LABS: BASOPHILS # (AUTO) 0.1 K/uL (0.0-0.2); HEMOGLOBIN 8.6 g/dL (13.5-17.5); LYMPHOCYTES # (AUTO) 0.7 K/uL (0.8-4.8); MEAN CORPUSCULAR HGB CONC 35 g/dl (31.0-36.0); MONOCYTES # (AUTO) 0.3 K/uL (0.1-1.30); WHITE BLOOD COUNT (AUTO) 5.5 K/uL (4.3-11.0)
[2021-06-03 09:08] LABS: BASOPHILS % (AUTO) 1.4 % (0.0-2.0); EOSINOPHILS % (AUTO) 1.6 % (0.0-6.0); HEMATOCRIT 25 % (39-51); LYMPHOCYTES % (AUTO) 12.1 % (20.0-44.0); MEAN CORPUSCULAR VOLUME 104 fL (80-96); MONOCYTES % (AUTO) 5.7 % (2.0-12.0); NEUTROPHILS # (AUTO) 4.4 K/uL (1.8-8.9); NEUTROPHILS % (AUTO) 79.2 % (43.0-81.0); PLATELET COUNT (AUTO) 148 K/uL (150-450); RED BLOOD CELL COUNT(AUTO) 2.39 MIL/uL (4.5-6.0)
[2021-06-03 09:12] LABS: ALBUMIN 3.4 g/dL (3.4-5.0); BILIRUBIN,DIRECT 0.3 mg/dL (0.0-0.2); BILIRUBIN,TOTAL 0.8 mg/dL (0.2-1.0); CALCIUM, SERUM 9.2 mg/dL (8.5-10.1); TOTAL PROTEIN, SERUM 8.1 g/dL (6.4-8.2)
[2021-06-03 09:13] LABS: CREATININE 11.7 mg/dL (0.6-1.3)
--- NOTE | 2021-06-03 09:16 | NUR ---
PATIENT RESTING, KEPT COMFORTABLE IN BED.
--- NOTE | 2021-06-03 09:29 | NUR ---
CALLED TO DR GONZALEZ`S OFFICE TO INFORM HIM THAT HE NEEDS TO SEE KATERYNA, HOWEVER, PER OFFICE STAFF THE DOCTOR IS IN A PROCEDURE UNTILL 1100 AND WON`T BE ABLE TO ANSWER CALLS. WILL TRY AGAIN AFTER 1100.
--- NOTE | 2021-06-03 10:17 | NUR ---
KS BED 312-1
--- NOTE | 2021-06-03 10:22 | NUR ---
REPORT GIVEN TO MALIA ROBLEDO FOR SUE.
--- NOTE | 2021-06-03 10:38 | NUR ---
PATIENT IS AMBULATORY WITH STEADY GAIT, TRANSFERRED TO ROOM [facility]1 VIA WHEELCHAIR. PATIENT IN STABLE CONDITION AT THIS TIME.
[2021-06-03] MEDS ORDERED: ONDANSETRON HCL/PF 4 MG/2 ML VIAL IVP PRN (14:30)
[2021-06-03] MEDS ORDERED: MAGNESIUM HYDROXIDE 30 ML UDC PO PRN (14:30)
[2021-06-03] MEDS ORDERED: MAG HYDROX/AL HYDROX/SIMETH 30 ML UDC PO PRN (14:30)
[2021-06-03] MEDS ORDERED: ACETAMINOPHEN 325 MG TABLET PO PRN (14:30)
[2021-06-03] MEDS ORDERED: HYDROCODONE/APAP 5/325MG TABLET PO PRN (14:30)
[2021-06-03] MEDS ORDERED: Z GUARD REMEDY 2 OZ OINT TP PRN (14:30)
[2021-06-03] MEDS: HYDROCODONE/APAP 10/325MG TABLET PO PRN ×2 (15:06→23:19)
[2021-06-03] MEDS ORDERED: HEPARIN SODIUM, PORCINE 1,000 UNIT/ML VIAL ONE (15:53)
[2021-06-03] MEDS ORDERED: ANESTHESIA TRAY IN PYXIS 1 EA TRAY MC ONE (15:53)
[2021-06-03] MEDS ORDERED: LIDOCAINE 1% INJ 50 ML MDV IJ ONE (15:54)
[2021-06-03] MEDS ORDERED: LABETALOL HCL IV 100MG VIAL ONE (18:19)
--- NOTE | 2021-06-03 19:51 | NUR ---
CONSTRUCTION PROJECT COORDINATOR OPENING NOTE PT A/OX4; ABLE TO MAKE NEEDS KNOWN. ON O2 2LPM VIA N/C TOLERATING WELL. EXTERNAL MERCHANDISE DISTRIBUTOR READS ST AT 104. S/P LUE AV SHUNT LIGATION; NO ACTIVE BLEEDING NOTED; DRESSING KEPT C/D/I. R WRIST #20G S/L; PATENT AND INTACT. LCW PERMACATH; HD NURSE AT BEDSIDE AND HD TX IN PROGRESS. WILL CONT PAIN MANAGEMENT. SAFETY MEASURES IN PLACE: BED IN LOWEST LOCKED POSITION, SIDE RAILS UPX2, CALL LIGHT WITHIN EASY REACH. PT IN STABLE CONDITION; WILL CONTINUE PLAN OF CARE.
[2021-06-03 20:00] VITALS: BP 106/53
[2021-06-03] MEDS: CEFAZOLIN 1 GM in IV D5W 50 ML IV SCH (21:37)
[2021-06-03] MEDS: CARVEDILOL 12.5 MG TABLET PO SCH (21:38)
[2021-06-03] MEDS ORDERED: CLONIDINE HCL 0.1 MG TABLET PO ONE (22:53)
--- NOTE | 2021-06-03 23:11 | NUR ---
FUR FINISHER NOTE S/P DIALYSIS WITH 4.5L AND 500ML REPLACED. TOTAL OF 4L OUT. PATIENT TOLERATED DIALYSIS WITH NO SOB, N/V/D. BP 205/138 HR 114. ADMIN CLONIDINE 0.2MG PO ONE TIME. WILL CONTINUE TO REASSESS BP
[2021-06-04] VITALS: BP 152/99
[2021-06-04 04:00] VITALS: BP 151/96
[2021-06-04 04:44] LABS: BASOPHILS % (AUTO) 0.6 % (0.0-2.0); EOSINOPHILS % (AUTO) 0.4 % (0.0-6.0); HEMATOCRIT 24 % (39-51); LYMPHOCYTES # (AUTO) 0.4 K/uL (0.8-4.8); LYMPHOCYTES % (AUTO) 7.7 % (20.0-44.0); MEAN CORPUSCULAR HGB CONC 34 g/dl (31.0-36.0); MEAN CORPUSCULAR VOLUME 105 fL (80-96); MONOCYTES # (AUTO) 0.3 K/uL (0.1-1.30); MONOCYTES % (AUTO) 6.2 % (2.0-12.0); NEUTROPHILS # (AUTO) 4.1 K/uL (1.8-8.9); NEUTROPHILS % (AUTO) 85.1 % (43.0-81.0); PLATELET COUNT (AUTO) 135 K/uL (150-450); RED BLOOD CELL COUNT(AUTO) 2.25 MIL/uL (4.5-6.0); WHITE BLOOD COUNT (AUTO) 4.8 K/uL (4.3-11.0)
[2021-06-04] MEDS: CEFAZOLIN 1 GM in IV D5W 50 ML IV SCH ×2 (04:52→14:03)
[2021-06-04 05:04] LABS: CALCIUM, SERUM 9.1 mg/dL (8.5-10.1); MAGNESIUM 2.5 mg/dL (1.8-2.4); PHOSPHORUS 4.5 mg/dL (2.5-4.9); POTASSIUM 4.2 mmol/L (3.5-5.1)
[2021-06-04 05:07] LABS: CREATININE 8.4 mg/dL (0.6-1.3)
[2021-06-04 05:15] LABS: THYROID STIMULATING HORMONE 3.397 uIU/mL (0.358-3.74)
--- NOTE | 2021-06-04 06:58 | NUR ---
YOUTH DEVELOPMENT PROFESSIONAL CLOSING NOTE PT A/OX4; ABLE TO MAKE NEEDS KNOWN. ON O2 2LPM VIA N/C TOLERATING WELL. EXTERNAL EARLY INTERVENTION SPECIALIST READS SR AT 70'S. S/P LUE AV SHUNT LIGATION; NO ACTIVE BLEEDING NOTED; DRESSING KEPT C/D/I. R WRIST #20G S/L; PATENT AND INTACT. LCW PERMACATH. SAFETY MEASURES IN PLACE: BED IN LOWEST LOCKED POSITION, SIDE RAILS UPX2, CALL LIGHT WITHIN EASY REACH. PT IN STABLE CONDITION; WILL ENDORSE PLAN OF CARE TO ONCOMING MORNING RN.
--- NOTE | 2021-06-04 07:33 | NUR ---
RN OPENING NOTES Received patiient in bed, no apparent distress noted, AO X 4, breathing even and unlabored, no SOB, denies any pain or discomfort at this time. Patient had a permacath placement last 06/03/21, no bleeding noted at site, no s/s of infection at this time. Patient also has left arm AV shunt on ligation, no s/s of circulation impairment, skin warm to touch, no pallor or cyanosis noted. Safety measures maintained, brakes locked, side rails up X2, call light left within reach, will monitor closely for any changes.
[2021-06-04 08:00] VITALS: BP 154/96
[2021-06-04] MEDS: PANTOPRAZOLE 40 MG TABLET.DR PO SCH (08:33)
[2021-06-04] MEDS: CARVEDILOL 12.5 MG TABLET PO SCH ×2 (08:33→22:01)
[2021-06-04] MEDS: LOSARTAN POTASSIUM 50 MG TABLET PO SCH (08:33)
[2021-06-04] MEDS: HYDROCODONE/APAP 10/325MG TABLET PO PRN ×3 (08:35→23:03)
[2021-06-04 12:00] VITALS: BP 116/73
[2021-06-04 16:00] VITALS: BP 133/87
--- NOTE | 2021-06-04 18:44 | NUR ---
RN CLOSING NOTES Patient seen comfortably lying in bed, no SOB, breathing even and unlabored, no apparent distress noted. Patient had dialysis session today, tolerating well, no s/s of fluid overload, no shortness of breath, dialysis site free from any bleeding, no s/s of infection noted. Pain medications given when non pharmacological measures ineffective, all routine medications given, tolerated well. All needs attended, call light left within reach, safety measures maintained, brakes locked, side rails up X2, will endorse to next shift for continuity of care.
[2021-06-04 20:00] VITALS: BP_SYST 108; BP_SYST 132; BP_DIAS 78; BP_DIAS 89
--- NOTE | 2021-06-04 20:04 | NUR ---
RUBBISH COLLECTION SUPERVISOR OPENING NOTE PT A/OX4; ABLE TO MAKE NEEDS KNOWN. ON O2 2LPM VIA N/C TOLERATING WELL. EXTERNAL PARTS SALES MANAGER READS SR AT 70'S. S/P LUE AV SHUNT LIGATION; NO ACTIVE BLEEDING NOTED; DRESSING KEPT C/D/I. R WRIST #20G S/L; PATENT AND INTACT. LCW PERMACATH; HD NURSE AT BEDSIDE AND HD COMPLETED WITH 3L OUT. VS WNL AND NO A/R, N/V/D. WILL CONT PAIN MANAGEMENT. SAFETY MEASURES IN PLACE: BED IN LOWEST LOCKED POSITION, SIDE RAILS UPX2, CALL LIGHT WITHIN EASY REACH. PT IN STABLE CONDITION; WILL CONTINUE PLAN OF CARE.
--- NOTE | 2021-06-04 23:04 | NUR ---
CHIEF MECHANICAL OFFICER NOTE - PAIN PT C/O LUE 05/14 PAIN. ADMINISTERED NORCO 10-325MG ORDERED. WILL REASSESS FOR PAIN IN 30 MINUTES.
[2021-06-05] VITALS: BP 145/92
--- NOTE | 2021-06-05 00:10 | NUR ---
CAREERS ADVISER NOTE - PAIN PT C/O LUE 05/14 PAIN. ADMINISTERED NORCO 5-325MG ORDERED. WILL REASSESS FOR PAIN IN 30 MINUTES.
[2021-06-05 04:00] VITALS: BP 122/84
[2021-06-05] MEDS ORDERED: MORPHINE SULFATE INJ 2 MG/ML DISP.SYRIN IM PRN (04:30)
[2021-06-05] MEDS: HYDROCODONE/APAP 10/325MG TABLET PO PRN ×3 (04:51→14:29)
--- NOTE | 2021-06-05 04:51 | NUR ---
BARIATRIC NURSE NOTE - PAIN PT C/O LUE 05/14 PAIN. ADMINISTERED NORCO 10-325MG ORDERED. WILL REASSESS FOR PAIN IN 30 MINUTES.
--- NOTE | 2021-06-05 05:26 | NUR ---
SALES SUPPORT COORDINATOR CLOSING NOTE PT A/OX4; ABLE TO MAKE NEEDS KNOWN. ON O2 1LPM VIA N/C TOLERATING WELL. EXTERNAL PRINTING ROLLER HANDLER READS SR AT 70'S. S/P LUE AV SHUNT LIGATION; NO ACTIVE BLEEDING NOTED; DRESSING KEPT C/D/I. R WRIST #20G S/L; PATENT AND INTACT. LCW PERMACATH DRESSING KEPT C/D/I. SAFETY MEASURES IN PLACE: BED IN LOWEST LOCKED POSITION, SIDE RAILS UPX2, CALL LIGHT WITHIN EASY REACH. PT IN STABLE CONDITION; WILL ENDORSE PLAN OF CARE TO ONCOMING MORNING RN.
--- NOTE | 2021-06-05 07:43 | NUR ---
RN OPENING NOTES Patient seen comfortably lying in bed, AO X 4, no apparent distress noted, breathing even and unlabored, no SOB, denies any pain or discomfort at this time. Safety measures maintained, brakes locked, side rails up X2, call light left within reach, will monitor closely for any changes.
[2021-06-05 08:00] VITALS: BP 148/99
[2021-06-05] MEDS: PANTOPRAZOLE 40 MG TABLET.DR PO SCH (08:24)
[2021-06-05 08:25] VITALS: BP 148/99
[2021-06-05] MEDS: LOSARTAN POTASSIUM 50 MG TABLET PO SCH (08:25)
[2021-06-05] MEDS: CARVEDILOL 12.5 MG TABLET PO SCH (08:25)
--- NOTE | 2021-06-05 15:20 | NUR ---
Patient to be discharged today, no apparent distress noted, denies any pain or discomfort at this tie, HOSEA bandage removed on left forearm, no bleeding noted at site, no unusual odor or discharge noted, site covered with dry dressings. All belongings given to patient, discharge paperworks and inventory list signed by patient. Health teaching done, verbalized understanding and gratitude. Patient left unit at 1520pm, ENGINE SETTER assisted patient going down the elevator via wheelchair, left hospital in stable condition
== END 2021-06-05 15:20 | disposition home or self-care (01) | DRG 182 ==
LOC: ER 08:35 → TRANSITION 09:52 → MED 10:17 → TELE 15:10 → MED 06-05 11:03
PROVIDERS: ADMIT Registered Nurse; ATTEND Internal Medicine
PROC: 05LY3ZZ Occlusion of Upper Vein, Percutaneous Approach (ICD-10-PCS; principal; 2021-06-03)
PROC: 0JH60XZ Insertion of Tunneled Vascular Access Device into Chest Subcutaneous Tissue and Fascia, Open Approach (ICD-10-PCS; 2021-06-03)
PROC: 02HV33Z Insertion of Infusion Device into Superior Vena Cava, Percutaneous Approach (ICD-10-PCS; 2021-06-03)
PROC: B518YZA Fluoroscopy of Superior Vena Cava using Other Contrast, Guidance (ICD-10-PCS; 2021-06-03)
PROC: 5A1D70Z Performance of Urinary Filtration, Intermittent, Less than 6 Hours Per Day (ICD-10-PCS; 2021-06-03)
DX: T82.838A Hemorrhage due to vascular prosthetic devices, implants and grafts, initial encounter (principal); J96.01 Acute respiratory failure with hypoxia; I21.A1 Myocardial infarction type 2; I50.23 Acute on chronic systolic (congestive) heart failure; N18.6 End stage renal disease; R18.8 Other ascites; D63.1 Anemia in chronic kidney disease; Y71.2 Prosthetic and other implants, materials and accessory cardiovascular devices associated with adverse incidents; I13.2 Hypertensive heart and chronic kidney disease with heart failure and with stage 5 chronic kidney disease, or end stage renal disease; Y83.2 Surgical operation with anastomosis, bypass or graft as the cause of abnormal reaction of the patient, or of later complication, without mention of misadventure at the time of the procedure; Y82.8 Other medical devices associated with adverse incidents; Y92.009 Unspecified place in unspecified non-institutional (private) residence as the place of occurrence of the external cause; Z99.2 Dependence on renal dialysis; Z91.19 Patient's noncompliance with other medical treatment and regimen; F17.200 Nicotine dependence, unspecified, uncomplicated; Z79.899 Other long term (current) drug therapy; Y83.8 Other surgical procedures as the cause of abnormal reaction of the patient, or of later complication, without mention of misadventure at the time of the procedure; Z20.822 Contact with and (suspected) exposure to COVID-19; F10.10 Alcohol abuse, uncomplicated
CPT/HCPCS: 36415; 71045-TC; 80048-TC; 80061-TC; 80076-TC; 83735-TC; 84100-TC; 84443-TC; 84484-TC; 85025-TC; 85730-TC; 86706; 87081-TC; 87340; 90935-TC; A6253; C1750; C1757; C1769; C1894; C9803; G0378; J0360; J0690; J1644; J2270; J2704; J3490; J7030; J7050; J7060

== ENCOUNTER 2021-08-16 02:24 | Inpatient (IN) | payer MEDICAID ==
[~2021-08-16] VITALS: Ht 172.7 cm; Wt 73.5 kg
--- NOTE | 2021-08-16 02:37 | NUR ---
PT BROUGHT IN C/O SOB THAT BEGAN BURNING THAT HAS PROGRESSIVELY WORSTENED. HX OF DIALYSIS AND HAS NOT MISSED, LAST DILAYSIS YESTERDAY. DENIES C/P, FEVER/CHILLS, ABD PAIN, OR N/V. PT CHANGED INTO A GOWN AND PLACED ON MONITOR. ON ASSESSMENT PT HYPERTENSIVE. MD WAS AT THE BEDSIDE FOR EVAL.
[2021-08-16 03:15] LABS: BASOPHILS # (AUTO) 0.1 K/uL (0.0-0.2); EOSINOPHILS % (AUTO) 1.9 % (0.0-6.0); HEMATOCRIT 30 % (39-51); HEMOGLOBIN 10.4 g/dL (13.5-17.5); LYMPHOCYTES # (AUTO) 0.7 K/uL (0.8-4.8); LYMPHOCYTES % (AUTO) 12.5 % (20.0-44.0); MEAN CORPUSCULAR HGB CONC 35 g/dl (31.0-36.0); MEAN CORPUSCULAR VOLUME 106 fL (80-96); MONOCYTES # (AUTO) 0.4 K/uL (0.1-1.30); NEUTROPHILS # (AUTO) 4.1 K/uL (1.8-8.9); NEUTROPHILS % (AUTO) 76.6 % (43.0-81.0); PLATELET COUNT (AUTO) 138 K/uL (150-450); RED BLOOD CELL COUNT(AUTO) 2.83 MIL/uL (4.5-6.0); WHITE BLOOD COUNT (AUTO) 5.3 K/uL (4.3-11.0)
[2021-08-16 03:33] LABS: CALCIUM, SERUM 8.9 mg/dL (8.5-10.1); CREATININE 5.5 mg/dL (0.6-1.3); POTASSIUM 3.2 mmol/L (3.5-5.1)
[2021-08-16 03:45] LABS: ALBUMIN 3.2 g/dL (3.4-5.0); BILIRUBIN,DIRECT 0.3 mg/dL (0.0-0.2); BILIRUBIN,TOTAL 0.8 mg/dL (0.2-1.0); TOTAL PROTEIN, SERUM 7.9 g/dL (6.4-8.2)
[2021-08-16] MEDS ORDERED: NITROGLYCERIN 0.4 MG/TAB BOTTLE ONE (03:48)
[2021-08-16] MEDS ORDERED: ASPIRIN 325 MG TABLET ONE (03:48)
[2021-08-16] MEDS ORDERED: NITROGLYCERIN 0.4 MG/TAB BOTTLE SL ONE (04:00)
[2021-08-16] MEDS ORDERED: ASPIRIN 325 MG TABLET PO ONE (04:00)
--- NOTE | 2021-08-16 04:03 | NUR ---
PT BP 178/128 PT REFUSED 3RD NITRO. AWARE.
--- NOTE | 2021-08-16 04:04 | NUR ---
DR CAMARILLO PAGED FOR PANEL
--- NOTE | 2021-08-16 05:17 | NUR ---
RECIEVED BED 326-1
[2021-08-16] MEDS ORDERED: ACETAMINOPHEN 325 MG TABLET PO PRN (07:00)
[2021-08-16] MEDS ORDERED: ZOLPIDEM TARTRATE 5 MG TABLET PO PRN (07:00)
[2021-08-16] MEDS ORDERED: MAG HYDROX/AL HYDROX/SIMETH 30 ML UDC PO PRN (07:00)
[2021-08-16] MEDS ORDERED: ONDANSETRON HCL/PF 4 MG/2 ML VIAL IVP PRN (07:00)
[2021-08-16] MEDS ORDERED: hydrALAZINE HCL 25 MG TABLET PO PRN (07:00)
[2021-08-16] MEDS ORDERED: Z GUARD REMEDY 2 OZ OINT TP PRN (07:00)
[2021-08-16] MEDS ORDERED: MAGNESIUM HYDROXIDE 30 ML UDC PO PRN (07:00)
--- NOTE | 2021-08-16 07:34 | NUR ---
REPORT GIVEN TO VENKAT PEOPLES
--- NOTE | 2021-08-16 07:51 | NUR ---
pt transferred to 326 per acls
--- NOTE | 2021-08-16 08:00 | NUR ---
HEALTH INFORMATICS ADVISOR NOTE PT AWAKE IN BED. ORIENTED TO ROOM AND TO CALL LIGHT USAGE. A/O X4 AND [place]ER SPEAKING. NO COMPLAINT OF PAIN OR NAUSEA. ON 2L NC WITH SOB PRESENT. PT REFUSE OUTREACH ANALYST. NO EDEMA PRESENT. SELF AMBULATORY WITH BATHROOM PRIVILEGES. SKIN INTACT. IV PRESENT ON R WRIST 20G AND FLUSHES WELL. L CW HD CATH PRESENT. LABS AND ORDERS REVIEWED. SAFETY MEASURES IN PLACE. SIDE RAILS RAISED. BED LOWERED. CALL LIGHT WITHIN REACH. WILL CONTINUE TO MONITOR.
[2021-08-16] MEDS: PANTOPRAZOLE 40 MG TABLET.DR PO SCH (08:07)
[2021-08-16] MEDS: HYDROCODONE/APAP 5/325MG TABLET PO PRN ×2 (10:52→18:49)
[2021-08-16] MEDS: LOSARTAN POTASSIUM 50 MG TABLET PO SCH (10:53)
--- NOTE | 2021-08-16 15:45 | NUR ---
RN NOTE DVT PUMPS ORDERED. VTE SCORE 3
[2021-08-16] MEDS: MORPHINE SULFATE INJ 2 MG/ML DISP.SYRIN IV PRN (15:54)
[2021-08-16 16:00] VITALS: BP 161/114
[2021-08-16] MEDS: CARVEDILOL 12.5 MG TABLET PO SCH (17:47)
--- NOTE | 2021-08-16 18:19 | NUR ---
RN CLOSING NOTE PT AWAKE IN BED. A/O X4 AND MALAWIAN SPEAKING. NO COMPLAINT OF PAIN OR NAUSEA. ON 2L NC WITH SOB PRESENT. PT REFUSE GUT DROPPER. NO EDEMA PRESENT. SELF AMBULATORY WITH BATHROOM PRIVILEGES. SKIN INTACT. IV PRESENT ON R WRIST 20G AND FLUSHES WELL. L CW HD CATH PRESENT. LABS AND ORDERS REVIEWED. SAFETY MEASURES IN PLACE. SIDE RAILS RAISED. BED LOWERED. CALL LIGHT WITHIN REACH. WILL
--- NOTE | 2021-08-16 19:46 | NUR ---
MANAGER COSMETICS CLOSING PATIENT WAS IN THE ROOM, A/OX4. AMBULATORY. NO S/S OF APPARENT DISTRESS ON 4LPM OF O2 VIA NC. DENIES PAIN AT THIS TIME. PATIENT ABLE TO MAKE NEEDS KNOWN. TELE MONITOR READING NSR AT 84. PATIENT SPECIFICALLY REQUESTED NOT BE BOTHERED AT MIDNIGHT. SAFETY IN PLACE. WILL CONTINUE WITH PLAN OF CARE. Addendum: 08/16/21 at 1949 by ALBA TIDWELL RN MANAGER COSMETICS OPENING PATIENT WAS IN THE ROOM, A/OX4. AMBULATORY. NO S/S OF APPARENT DISTRESS ON 4LPM OF O2 VIA NC. DENIES PAIN AT THIS TIME. PATIENT ABLE TO MAKE NEEDS KNOWN. TELE MONITOR READING NSR AT 84. PATIENT SPECIFICALLY REQUESTED NOT BE BOTHERED AT MIDNIGHT. SAFETY IN PLACE. WILL CONTINUE WITH PLAN OF CARE.
[2021-08-16 20:00] VITALS: BP 119/75
[2021-08-16 20:27] VITALS: BP 119/75
--- NOTE | 2021-08-17 | NUR ---
SUPERVISOR ORNAMENTAL IRONWORKING NOTES REFUSES MIDNIGHT V/S. PER PATIENT DO NOT WAKE HIM UP WHEN HE IS SLEEPING.
[2021-08-17] MEDS: MORPHINE SULFATE INJ 2 MG/ML DISP.SYRIN IV PRN ×2 (05:49→18:33)
--- NOTE | 2021-08-17 06:00 | NUR ---
AVIONICS MECHANIC NOTE PATIENT SIGNED HD CONSENT FORMED, NO ORDERS YET. PER CHARGE NURSE AND NURSING TEA PLANTATION WORKER, SAMUEL HAS TO PUT IT THE ORDER, SO F/U IN THE AM. IT WAS ENDORSED TO ME BY SHELTON RN NURSE YESTERDAY THAT PER JONNA MCGEE, SHE WILL PUT IT THE ORDER FOR HD BUT THERE IS NO ORDERS YET. WILL ENDORSE TO MORNING SHIFT RN.
--- NOTE | 2021-08-17 06:30 | NUR ---
WELFARE ADMINISTRATOR NOTE JONA, DELIVERY SALES WORKER REPORTED PATIENT HAD 3 SECONDS OF SVT. PATIENT STABLE WHEN I CHECKED. WILL CONT. TO MONITOR.
--- NOTE | 2021-08-17 06:38 | NUR ---
DOCENT COORDINATOR NOTE PATIENT IN BED. A/OX4. AMBULATING WITH STEADY GAIT. NO S/S OF APPARENT DISTRESS ON 3LPM OF O2 VIA NC. PAIN MANAGED WITH MEDICATION. PATIENT ABLE TO MAKE NEEDS KNOWN. ALL NEEDS ATTENDED. DAILY WT CHARTED. TELE MONITOR BEEN READING NSR 84 THROUGHOUT SHIFT. NO SIGNIFICANT CHANGE SINCE LAST ENDORSEMENT. WILL ENDORSE TO MORNING SHIFT RN FOR CONTINUITY OF CARE.
[2021-08-17] MEDS: PANTOPRAZOLE 40 MG TABLET.DR PO SCH ×2 (07:30→09:34)
[2021-08-17 08:00] VITALS: BP 139/96
--- NOTE | 2021-08-17 08:08 | NUR ---
TELE/RN OPENING NOTE RECEIVED PATIENT IN BED. A/OX4. AMBULATING WITH STEADY GAIT. NO S/S OF APPARENT DISTRESS ON 3LPM OF O2 VIA NC. PAIN MANAGED WITH MEDICATION. PATIENT ABLE TO MAKE NEEDS KNOWN. TELE MONITOR READING OF NSR 84. IV ACCESS ON RIGHT WRIST #20G IS INTACT AND PATENT ON SALINE LOCK, HAVE RIGHT CHEST WALL HD CATH. SAFETY MEASURES IN PLACED: BED LOCKED ON LOWEST POSITION, SIDE RAILS UPX2, CALL LIGHT WITHIN REACH. WILL CONTINUE TO MONITOR.
[2021-08-17] MEDS: LOSARTAN POTASSIUM 50 MG TABLET PO SCH ×2 (09:00→09:33)
[2021-08-17] MEDS: ASPIRIN EC 81 MG TABLET.DR PO SCH (09:33)
[2021-08-17] MEDS: CARVEDILOL 12.5 MG TABLET PO SCH ×2 (09:34→17:26)
--- NOTE | 2021-08-17 09:41 | NUR ---
MS RN Notes Refuse meds Pt refused meds
--- NOTE | 2021-08-17 14:00 | NUR ---
MS/RN NOTES- HEMODIALYSIS STARTED
[2021-08-17 14:33] LABS: BASOPHILS % (AUTO) 0.4 % (0.0-2.0); EOSINOPHILS % (AUTO) 3.6 % (0.0-6.0); HEMATOCRIT 27 % (39-51); HEMOGLOBIN 9.1 g/dL (13.5-17.5); LYMPHOCYTES # (AUTO) 0.3 K/uL (0.8-4.8); LYMPHOCYTES % (AUTO) 9.8 % (20.0-44.0); MEAN CORPUSCULAR HGB CONC 34 g/dl (31.0-36.0); MEAN CORPUSCULAR VOLUME 107 fL (80-96); MONOCYTES # (AUTO) 0.2 K/uL (0.1-1.30); MONOCYTES % (AUTO) 6.8 % (2.0-12.0); NEUTROPHILS # (AUTO) 2.8 K/uL (1.8-8.9); NEUTROPHILS % (AUTO) 79.4 % (43.0-81.0); PLATELET COUNT (AUTO) 109 K/uL (150-450); RED BLOOD CELL COUNT(AUTO) 2.51 MIL/uL (4.5-6.0); WHITE BLOOD COUNT (AUTO) 3.5 K/uL (4.3-11.0)
[2021-08-17 14:42] LABS: MAGNESIUM 2.3 mg/dL (1.8-2.4); PHOSPHORUS 3.7 mg/dL (2.5-4.9)
[2021-08-17 15:21] LABS: CALCIUM, SERUM 7.8 mg/dL (8.5-10.1); CREATININE 7.4 mg/dL (0.6-1.3); POTASSIUM 3.6 mmol/L (3.5-5.1)
[2021-08-17 16:00] VITALS: BP 136/99
[2021-08-17 16:38] LABS: BAND % (MANUAL) 1 % (0.0-5.0); EOSINOPHILS % (MANUAL) 2 % (0-4); LYMPHOCYTES % (MANUAL) 12 % (16-48); MONOCYTES % (MANUAL) 7 % (0-11.0); NEUTROPHILS % (MANUAL) 78 (42-76)
--- NOTE | 2021-08-17 16:53 | NUR ---
MS/RN NOTES- HEMODIALYSIS DONE 3L TAKEN OUT PER VENKAT WILHELM. WILL CONTINUE TO MONITOR.
--- NOTE | 2021-08-17 19:10 | NUR ---
TELE/RN CLOSING NOTE PATIENT IN BED. A/OX4. AMBULATING WITH STEADY GAIT. NO S/S OF APPARENT DISTRESS ON 3LPM OF O2 VIA NC. PAIN MANAGED WITH MEDICATION. PATIENT ABLE TO MAKE NEEDS KNOWN. TELE MONITOR READING OF NSR 84. IV ACCESS ON RIGHT WRIST #20G IS INTACT AND PATENT ON SALINE LOCK, HAVE RIGHT CHEST WALL HD CATH. SAFETY MEASURES IN PLACED: BED LOCKED ON LOWEST POSITION, SIDE RAILS UPX2, CALL LIGHT WITHIN REACH. WILL ENDORSE TO THE NEXT SHIFT FOR SUE.
--- NOTE | 2021-08-17 19:20 | NUR ---
RN OPENING NOTE RECEIVED PT AWAKE IN BED, A/OX4, ABLE TO MAKE NEEDS KNOWN. HE DENIES PAIN/DISCOMFORT AT THIS TIME. ON O2 @3LPM VIA NC. RESPIRATIONS EVEN/UNLABORED. DENIES SOB. IV SITE: R-WRIST 20G INTACT/PATENT/FLUSHES WELL. R-CW HD CATH IN PLACE, DRESSING C/D/I. PT IN NO ACUTE DISTRESS. SAFETY MEASURES IN PLACE, BED IN LOWEST LOCKED POSITION, S/R UPX2, CALL LIGHT WITHIN REACH. WILL CONT TO MONITOR.
[2021-08-17 20:00] VITALS: BP 139/92
[2021-08-18] MEDS: MORPHINE SULFATE INJ 2 MG/ML DISP.SYRIN IV PRN (01:05)
--- NOTE | 2021-08-18 07:04 | NUR ---
RN CLOSING NOTE PT RESTING IN BED, EASILY AROUSABLE TO STIMULI. HE DENIES ANY PAIN AT THIS TIME. NO SOB. NO ACUTE EVENTS DURING THE NIGHT. ALL NEEDS ATTENDED TO.
[2021-08-18 08:00] VITALS: BP 141/97
--- NOTE | 2021-08-18 08:01 | NUR ---
MS/RN OPENING NOTE PATIENT IN BED. A/OX4. ABLE TO MAKE NEEDS KNOWN. NO S/S OF APPARENT DISTRESS ON 3LPM OF O2 VIA NC. AMBULATING WITH STEADY GAIT. IV ACCESS ON RIGHT WRIST #20G IS INTACT AND PATENT ON SALINE LOCK, HAVE RIGHT CHEST WALL HD CATH. SAFETY MEASURES IN PLACED: BED LOCKED ON LOWEST POSITION, SIDE RAILS UPX2, CALL LIGHT WITHIN REACH. WILL CONTINUE TO MONITOR
[2021-08-18] MEDS: ASPIRIN EC 81 MG TABLET.DR PO SCH (08:54)
[2021-08-18] MEDS: LOSARTAN POTASSIUM 50 MG TABLET PO SCH (08:54)
[2021-08-18 08:55] VITALS: BP 141/97
[2021-08-18] MEDS: PANTOPRAZOLE 40 MG TABLET.DR PO SCH (08:55)
[2021-08-18] MEDS: CARVEDILOL 12.5 MG TABLET PO SCH (08:55)
--- NOTE | 2021-08-18 12:29 | NUR ---
MS DIRECTOR OF PUBLIC SAFETY NOTES PATIENT IS ALERT AND ORIENTED X 4. STABLE ON ROOM AIR. PT IS AMBULATORY, AND MEDICALLY STABLE. DR. BROOKS ORDERED D/C TO HOME. ALL DISCHARGE PAPERS SIGNED . ALL BELONGINGS WERE ACCOUNTED. IV ACCESS WAS DISCONTINUED. ASSISTED PT DOWNSTAIRS TO THE LOBBY. PT DROVE HIMSELF VIA PRIVATE CAR.
== END 2021-08-18 12:30 | disposition home or self-care (01) | DRG 194 ==
LOC: MERGE 02:26 → ER 02:26 → TRANSITION 05:04 → TELE 05:15 → MED 18:18 → TELE 18:23 → MED 08-17 09:05
PROVIDERS: ADMIT Internal Medicine; ATTEND Internal Medicine
PROC: 0W993ZZ Drainage of Right Pleural Cavity, Percutaneous Approach (ICD-10-PCS; principal; 2021-08-16)
PROC: 5A1D70Z Performance of Urinary Filtration, Intermittent, Less than 6 Hours Per Day (ICD-10-PCS; 2021-08-17)
DX: I13.2 Hypertensive heart and chronic kidney disease with heart failure and with stage 5 chronic kidney disease, or end stage renal disease (principal); J96.01 Acute respiratory failure with hypoxia; I21.A1 Myocardial infarction type 2; J91.8 Pleural effusion in other conditions classified elsewhere; N18.6 End stage renal disease; D63.8 Anemia in other chronic diseases classified elsewhere; I50.23 Acute on chronic systolic (congestive) heart failure; Z99.2 Dependence on renal dialysis; Z79.899 Other long term (current) drug therapy; F17.200 Nicotine dependence, unspecified, uncomplicated; Z91.19 Patient's noncompliance with other medical treatment and regimen; F10.21 Alcohol dependence, in remission; Z20.822 Contact with and (suspected) exposure to COVID-19; Z71.6 Tobacco abuse counseling
CPT/HCPCS: 36415; 71045-TC; 80048-TC; 80061-TC; 80076-TC; 83735-TC; 83880; 84100-TC; 84484-TC; 85025-TC; 85730-TC; 87040-TC; 87081-TC; 90935-TC; G0378; J2270; J7030

== ENCOUNTER 2021-08-23 03:24 | Inpatient (IN) | payer MEDICAID ==
[~2021-08-23] VITALS: Ht 172.7 cm; Wt 74.8 kg
[~2021-08-23 03:24] MED LIST changes: -HYDR-3980 PO
--- NOTE | 2021-08-23 03:41 | NUR ---
BIBS. DIFFICULTY BREATHING STARTED 0100. PT ON HD, LAST SESSION YESTERDAY O2 SAT 96% ON RA. PT ALERT AND ORIENTED X3. AMBULATORY WITH NON LABORED BREATHING.
--- NOTE | 2021-08-23 03:54 | NUR ---
BLOOD COLLECTED AND SENT TO LAB
[2021-08-23 04:05] LABS: BASOPHILS # (AUTO) 0.1 K/uL (0.0-0.2); BASOPHILS % (AUTO) 1.1 % (0.0-2.0); EOSINOPHILS % (AUTO) 1.7 % (0.0-6.0); HEMATOCRIT 29 % (39-51); LYMPHOCYTES # (AUTO) 0.7 K/uL (0.8-4.8); LYMPHOCYTES % (AUTO) 14.4 % (20.0-44.0); MEAN CORPUSCULAR HGB CONC 34 g/dl (31.0-36.0); MEAN CORPUSCULAR VOLUME 105 fL (80-96); MONOCYTES # (AUTO) 0.4 K/uL (0.1-1.30); MONOCYTES % (AUTO) 7.9 % (2.0-12.0); NEUTROPHILS # (AUTO) 3.5 K/uL (1.8-8.9); NEUTROPHILS % (AUTO) 74.9 % (43.0-81.0); PLATELET COUNT (AUTO) 147 K/uL (150-450); RED BLOOD CELL COUNT(AUTO) 2.76 MIL/uL (4.5-6.0); WHITE BLOOD COUNT (AUTO) 4.7 K/uL (4.3-11.0)
[2021-08-23 04:37] LABS: ALBUMIN 3.1 g/dL (3.4-5.0); BILIRUBIN,DIRECT 0.3 mg/dL (0.0-0.2); BILIRUBIN,TOTAL 0.6 mg/dL (0.2-1.0); CALCIUM, SERUM 9.1 mg/dL (8.5-10.1); CREATININE 7.2 mg/dL (0.6-1.3); POTASSIUM 3.6 mmol/L (3.5-5.1); TOTAL PROTEIN, SERUM 8.2 g/dL (6.4-8.2)
[2021-08-23] MEDS ORDERED: ONDANSETRON HCL/PF 4 MG/2 ML VIAL IVP PRN (05:00)
[2021-08-23] MEDS ORDERED: ACETAMINOPHEN 325 MG TABLET PO PRN (05:00)
[2021-08-23] MEDS ORDERED: Z GUARD REMEDY 2 OZ OINT TP PRN (05:00)
[2021-08-23] MEDS ORDERED: hydrALAZINE HCL IV 20 MG VIAL ONE (05:27)
[2021-08-23] MEDS ORDERED: hydrALAZINE HCL IV 20 MG VIAL IV ONE (05:30)
--- NOTE | 2021-08-23 07:57 | NUR ---
bed assigned [id number]
--- NOTE | 2021-08-23 07:59 | NUR ---
REPORT GIVEN TO ALIREZA ROBLEDO FOR SUE
[2021-08-23 08:30] VITALS: BP 166/124
[2021-08-23] MEDS: DOCUSATE SODIUM 100 MG CAPSULE PO SCH ×2 (09:00→17:00)
[2021-08-23] MEDS: FAMOTIDINE/PF INJ 20 MG/2 ML VIAL IV SCH (09:00)
--- NOTE | 2021-08-23 10:00 | NUR ---
BARREL BUNG REMOVER AND DUMPER ADMITTING NOTES PT ADMITTED TO UNIT AT 0840 VIA GURNEY BY Roxana GARCIA. PT IS AWAKE, A/O X4, VERBALLY RESPONSIVE. ON O2 AT 3LPM VIA N/C, SATURATION AT 98%. DENIES SOB, BREATHING EVEN AND UNLABORED, NOT IN RESPIRATORY DISTRESS NOTED. WITH DIMINISHED BREATH SOUND ON RIGHT LUNG, LEFT LUNG CLEAR TO AUSCULTATION. ABDOMEN SOFT AND NON-TENDER WITH ACTIVE BOWEL SOUNDS ON FOUR QUADRANTS. WITH LEFT SUBCLAVIAN PERMACATH WITH DRESSING C/D/I. IV ACCESS ON RFA INTACT AND PATENT. TELEMONITOR APPLIED WITH SINUS TACH READING AT 110'S. SAFETY MEASURE IN PLACE. BED LOCKED AND IN LOWEST POSITION, SR UP X2, TABLE AND CALL LIGHT PLACED WITHIN EASY REACH. WILL CONTINUE TO MONITOR PT.
--- NOTE | 2021-08-23 13:10 | NUR ---
RN NOTES RIGHT THORACENTESIS DONE BY ROSSANA FERNANDEZ, WITH 100ML SEROSANGUINEOUS OUTPUT. PT TOLERATED PROCEDURE WELL. SPECIMEN SENT TO LAB. DRESSING ON SITE C/D/I. WILL CONTINUE TO MONITOR PT.
[2021-08-23 13:24] VITALS: BP 165/105
[2021-08-23] MEDS: CARVEDILOL 12.5 MG TABLET PO SCH ×2 (13:24→17:00)
--- NOTE | 2021-08-23 15:25 | NUR ---
RN NOTES PATIENT FOR HEMODIALYSIS, CONSENT OBTAINED FROM PT, FILED IN CHART. DIALYSIS STARTED @1500 BY HD NURSE CECILE. WILL CONTINUE TO MONITOR.
[2021-08-23 16:00] VITALS: BP 155/114
--- NOTE | 2021-08-23 17:45 | NUR ---
RN NOTES PT FINISHED HEMODIALYSIS WITH 3500ML UF, PT TOLERATED PROCEDURE WELL. POST HD BP - 143/104, P - 76. LEFT SUBCLAVIAN PERMACATH INTACT WITH DRESSING CLEAN AND DRY. WILL CONTINUE TO MONITOR PT.
--- NOTE | 2021-08-23 18:46 | NUR ---
LICENSED SALES ASSISTANT CLOSING NOTES PT RESTING ON BED, AWAKE, NO SIGNS OF ACUTE DISTRESS NOTED. REMAINS ON O2 @3LPM VIA N/C, SATTING @96%, NO SOB NOTED, BREATHING EVEN AND UNLABORED. ON SENIOR LITIGATION PARALEGAL WITH CURRENT READING OF NSR, HR @76. LEFT SUBCLAVIAN PERMACATH INTACT, WITH CLEAN AND DRY DRESSING. IV ACCSESS ON RIGHT FA, PATENT AND INTACT. REFUSED ALL PM MEDS DESPITE EXPLANATION OF RISKS AND BENEFITS. SAFETY MEASURES IN PLACE. BED LOCKED AND ON LOWEST POSITION, SR UP X2, CALL LIGHT PLACED WITHIN EASY REACH. WILL ENDORSE TO NEXT SHIFT.
--- NOTE | 2021-08-23 19:20 | NUR ---
TELE/RN OPENING NOTE RECEIVED PT RESTING IN BED, EASILY AROUSABLE TO STIMULI, A/O X4. HE DENIES PAIN AT THIS TIME. ON O2 @3LPM VIA NC. RESPIRATIONS EVEN/UNLABORED. HE DENIES SOB. IV SITE R-FA #18G INTACT/PATENT/FLUSHES WELL. L-SUBCLAVIAN HD CATH INTACT, WITH DRESSING C/D/I. PT IN NO ACUTE DISTRESS. SAFETY MEASURES IN PLACE, BED IN LOWEST LOCKED POSITION, S/R UPX2, CALL LIGHT WITHIN REACH. WILL CONT TO MONITOR. Addendum: 08/23/21 at 2356 by ZECHARIAH WEBB RN TELE MONITOR CURRENTLY READING SR, HR 82.
[2021-08-23 20:00] VITALS: BP 159/89
[2021-08-24] VITALS: BP 147/90
--- NOTE | 2021-08-24 04:00 | NUR ---
RN NOTE PT REFUSED 0400 V/S. NO ACUTE DISTRESS NOTED.
--- NOTE | 2021-08-24 06:51 | NUR ---
TELE/RN CLOSING NOTES PT RESTING IN BED, EASILY AWAKENS TO STIMULI. DENIES ANY PAIN AT THIS TIME. CONTINUES ON O2 @3LPM VIA NC. NO ACUTE EVENTS DURING THE NIGHT. PT REFUSED LAB DRAW THIS AM. PHLEB WILL COME BACK TO TRY AGAIN LATER. SAFETY MEASURES MAINTAINED.
--- NOTE | 2021-08-24 07:30 | NUR ---
RN OPENING NOTES RECEIVED PT IN BED, AWAKE, A/O X4. VERBALLY RESPONSIVE. ON O2 AT 3LPM VIA N/C SATTING @96%, NO C/O SOB, BREATHING EVEN AND UNLABORED. IV ACCESS ON RFA #18G INTACT AND PATENT, WITH LEFT SUBCLAVIAN PERMACATH INTACT WITH DRESSING C/D/I. NO C/O PAIN AT THIS TIME. SAFETY, MEASURES IN PLACE, BED LOCKED ON LOWEST POSITION, SR UP X2, CALL LIGHT PLACED WITHIN EASY REACH. WILL CONTINUE TO MONITOR.
[2021-08-24 08:00] VITALS: BP 169/122
[2021-08-24 09:00] VITALS: BP 169/122
[2021-08-24] MEDS ORDERED: LOSARTAN POTASSIUM 50 MG TABLET PO SCH (09:00)
[2021-08-24] MEDS: CARVEDILOL 12.5 MG TABLET PO SCH (09:00)
[2021-08-24] MEDS: FAMOTIDINE/PF INJ 20 MG/2 ML VIAL IV SCH (09:00)
[2021-08-24] MEDS: DOCUSATE SODIUM 100 MG CAPSULE PO SCH (09:00)
--- NOTE | 2021-08-24 09:05 | NUR ---
RN NOTES PT STARTED ON HEMODIALYSIS BY HD NURSE DAVID. PRE HD B/P 169/122, P 87. WILL CONTINUE TO MONITOR.
[2021-08-24 09:30] LABS: BASOPHILS # (AUTO) 0.3 K/uL (0.0-0.2); EOSINOPHILS % (AUTO) 2.9 % (0.0-6.0); HEMATOCRIT 27 % (39-51); HEMOGLOBIN 9.3 g/dL (13.5-17.5); LYMPHOCYTES # (AUTO) 0.5 K/uL (0.8-4.8); LYMPHOCYTES % (AUTO) 13.6 % (20.0-44.0); MEAN CORPUSCULAR HGB CONC 34 g/dl (31.0-36.0); MEAN CORPUSCULAR VOLUME 105 fL (80-96); MONOCYTES # (AUTO) 0.2 K/uL (0.1-1.30); MONOCYTES % (AUTO) 6.3 % (2.0-12.0); NEUTROPHILS # (AUTO) 2.5 K/uL (1.8-8.9); NEUTROPHILS % (AUTO) 68.4 % (43.0-81.0); PLATELET COUNT (AUTO) 151 K/uL (150-450); RED BLOOD CELL COUNT(AUTO) 2.57 MIL/uL (4.5-6.0); WHITE BLOOD COUNT (AUTO) 3.7 K/uL (4.3-11.0)
[2021-08-24 10:21] LABS: ALBUMIN 2.9 g/dL (3.4-5.0); BILIRUBIN,TOTAL 0.6 mg/dL (0.2-1.0); CALCIUM, SERUM 10.1 mg/dL (8.5-10.1); MAGNESIUM 2.8 mg/dL (1.8-2.4); PHOSPHORUS 5.1 mg/dL (2.5-4.9); POTASSIUM 4.2 mmol/L (3.5-5.1); TOTAL PROTEIN, SERUM 7.8 g/dL (6.4-8.2)
[2021-08-24 10:22] LABS: CREATININE 8.4 mg/dL (0.6-1.3)
--- NOTE | 2021-08-24 12:00 | NUR ---
RN NOTES HEMODIALYSIS DONE WITH 2708 UF. PT TOLERATED PROCEDURE WELL. POST HD BP 152/109, P 88. PT IN STABLE CONDITION.
--- NOTE | 2021-08-24 13:50 | NUR ---
BATCHER OPERATOR NOTES PT DISCHARGE HOME IN STABLE CONDITION. ALERT AND ORIENTED X4. V/S TAKEN, STABLE, AND RECORDED. ALL BELONGINGS ACCOUNTED FOR, ALL DISCHARGE FORMS SIGNED BY PT. DISCHARGE INSTRUCTIONS AND HEALTH TEACHINGS PROVIDED TO PT WITH VERBALIZATION OF UNDERSTANDING. IV SL ON RFA REMOVED, NAME BAND ALSO REMOVED. LEFT SUBCLAVIAN PERMACATH INTACT WITH CLEAN AND DRY DRESSING. PT LEFT UNIT @1345 AMBULATORY, PER PT HE WILL DRIVE HIMSELF HOME. LEFT IN [facility]. MD AND CN AWARE OF DISCHARGE.
== END 2021-08-24 13:45 | disposition home or self-care (01) | DRG 194 ==
LOC: ER 03:28 → TELE 08:10 → MED 08-24 09:56
PROC: 0W993ZZ Drainage of Right Pleural Cavity, Percutaneous Approach (ICD-10-PCS; principal; 2021-08-23)
PROC: 5A1D70Z Performance of Urinary Filtration, Intermittent, Less than 6 Hours Per Day (ICD-10-PCS; 2021-08-23)
DX: I13.2 Hypertensive heart and chronic kidney disease with heart failure and with stage 5 chronic kidney disease, or end stage renal disease (principal); J96.01 Acute respiratory failure with hypoxia; I21.A1 Myocardial infarction type 2; I31.3 Pericardial effusion (noninflammatory); R18.8 Other ascites; N18.6 End stage renal disease; E87.1 Hypo-osmolality and hyponatremia; J90 Pleural effusion, not elsewhere classified; I50.23 Acute on chronic systolic (congestive) heart failure; F17.200 Nicotine dependence, unspecified, uncomplicated; Z99.2 Dependence on renal dialysis; D53.9 Nutritional anemia, unspecified; F17.210 Nicotine dependence, cigarettes, uncomplicated; Z20.822 Contact with and (suspected) exposure to COVID-19; Z91.19 Patient's noncompliance with other medical treatment and regimen
CPT/HCPCS: 36415; 71045-TC; 80048-TC; 80053-TC; 80076-TC; 83605-TC; 83735-TC; 83880; 84100-TC; 84484-TC; 85025-TC; 85730-TC; 86704; 86705; 86706; 87040-TC; 87081-TC; 87340; 90935-TC; 93307-TC; C9803; G0378; J0360; J3490; J7030

== ENCOUNTER 2021-08-30 22:37 | Inpatient (IN) | payer MEDICAID ==
[~2021-08-30] VITALS: Ht 172.7 cm; Wt 73.5 kg
[2021-08-30] MEDS ORDERED: ASPIRIN 325 MG TABLET ONE (22:51)
[2021-08-30] MEDS ORDERED: NITROGLYCERIN 0.4 MG/TAB BOTTLE ONE (22:56)
[2021-08-30] MEDS ORDERED: ASPIRIN 325 MG TABLET PO ONE (23:00)
[2021-08-30] MEDS ORDERED: NITROGLYCERIN 0.4 MG/TAB BOTTLE SL ONE (23:00)
[2021-08-30 23:01] LABS: BASOPHILS # (AUTO) 0.1 K/uL (0.0-0.2); BASOPHILS % (AUTO) 1.3 % (0.0-2.0); EOSINOPHILS % (AUTO) 2.3 % (0.0-6.0); HEMATOCRIT 29 % (39-51); HEMOGLOBIN 10.1 g/dL (13.5-17.5); LYMPHOCYTES # (AUTO) 0.7 K/uL (0.8-4.8); LYMPHOCYTES % (AUTO) 11.6 % (20.0-44.0); MEAN CORPUSCULAR HGB CONC 34 g/dl (31.0-36.0); MEAN CORPUSCULAR VOLUME 102 fL (80-96); MONOCYTES # (AUTO) 0.5 K/uL (0.1-1.30); MONOCYTES % (AUTO) 7.3 % (2.0-12.0); NEUTROPHILS % (AUTO) 77.5 % (43.0-81.0); PLATELET COUNT (AUTO) 197 K/uL (150-450); RED BLOOD CELL COUNT(AUTO) 2.89 MIL/uL (4.5-6.0); WHITE BLOOD COUNT (AUTO) 6.4 K/uL (4.3-11.0)
[2021-08-30 23:10] LABS: CALCIUM, SERUM 9.2 mg/dL (8.5-10.1); CARBON DIOXIDE 27 mmol/L (21-32); CHLORIDE 88 mmol/L (98-107); GLUCOSE 101 mg/dL (74-106); SODIUM SERUM 127 mmol/L (136-145); UREA NITROGEN, BLOOD 38 mg/dL (7-18)
[2021-08-30 23:24] LABS: ALANINE AMINOTRANSFERASE 19 U/L (12-78); ALBUMIN 3.4 g/dL (3.4-5.0); ALKALINE PHOSPHATASE 163 U/L (46-116); ASPARTATE AMINOTRANSFERASE 21 U/L (15-37); BILIRUBIN,DIRECT 0.2 mg/dL (0.0-0.2); BILIRUBIN,TOTAL 0.6 mg/dL (0.2-1.0); TOTAL PROTEIN, SERUM 8.6 g/dL (6.4-8.2)
[2021-08-30 23:26] LABS: CREATININE 7.5 mg/dL (0.6-1.3)
[2021-08-31] MEDS ORDERED: hydrALAZINE HCL IV 20 MG VIAL ONE (00:43)
[2021-08-31] MEDS ORDERED: hydrALAZINE HCL IV 20 MG VIAL IV ONE (01:00)
[2021-08-31] MEDS ORDERED: ONDANSETRON HCL/PF 4 MG/2 ML VIAL IVP PRN (01:30)
[2021-08-31] MEDS ORDERED: ZOLPIDEM TARTRATE 5 MG TABLET PO PRN (01:30)
[2021-08-31] MEDS ORDERED: NITROGLYCERIN 0.4 MG/TAB BOTTLE SL PRN (01:30)
[2021-08-31] MEDS ORDERED: ACETAMINOPHEN 325 MG TABLET PO PRN (01:30)
[2021-08-31] MEDS ORDERED: Z GUARD REMEDY 2 OZ OINT TP PRN (01:30)
[2021-08-31 02:46] VITALS: BP 160/85
[2021-08-31 04:10] VITALS: BP 186/138
[2021-08-31] MEDS ORDERED: CLONIDINE HCL 0.1MG/24H PTWK 1 EA PATCH TD ONE ×2 (04:10→05:11)
[2021-08-31] MEDS: MORPHINE SULFATE INJ 2 MG/ML DISP.SYRIN IV PRN ×2 (05:26→18:28)
[2021-08-31 08:00] VITALS: BP 167/124
[2021-08-31] MEDS: CARVEDILOL 12.5 MG TABLET PO SCH ×2 (08:26→17:41)
[2021-08-31] MEDS: LOSARTAN POTASSIUM 50 MG TABLET PO SCH (08:27)
[2021-08-31] MEDS: ASPIRIN EC 81 MG TABLET.DR PO SCH (08:27)
[2021-08-31 16:00] VITALS: BP 133/80
[2021-08-31 20:00] VITALS: BP 131/85
[2021-09-01] VITALS: BP 121/77
[2021-09-01 08:00] VITALS: BP 128/86
[2021-09-01] MEDS: CARVEDILOL 12.5 MG TABLET PO SCH ×3 (08:35→17:54)
[2021-09-01] MEDS: LOSARTAN POTASSIUM 50 MG TABLET PO SCH ×2 (08:35→08:44)
[2021-09-01] MEDS: ASPIRIN EC 81 MG TABLET.DR PO SCH (08:39)
[2021-09-01 12:00] VITALS: BP 125/90
[2021-09-01] MEDS: HYDROCODONE/APAP 5/325MG TABLET PO PRN (12:26)
[2021-09-01 16:00] VITALS: BP 140/92
[2021-09-01 16:15] LABS: BASOPHILS % (AUTO) 0.9 % (0.0-2.0); EOSINOPHILS % (AUTO) 3.9 % (0.0-6.0); HEMATOCRIT 28 % (39-51); HEMOGLOBIN 9.5 g/dL (13.5-17.5); LYMPHOCYTES # (AUTO) 0.4 K/uL (0.8-4.8); LYMPHOCYTES % (AUTO) 9.5 % (20.0-44.0); MEAN CORPUSCULAR HGB CONC 34 g/dl (31.0-36.0); MEAN CORPUSCULAR VOLUME 103 fL (80-96); MONOCYTES # (AUTO) 0.4 K/uL (0.1-1.30); MONOCYTES % (AUTO) 8.8 % (2.0-12.0); NEUTROPHILS # (AUTO) 3.2 K/uL (1.8-8.9); NEUTROPHILS % (AUTO) 76.9 % (43.0-81.0); PLATELET COUNT (AUTO) 187 K/uL (150-450); RED BLOOD CELL COUNT(AUTO) 2.71 MIL/uL (4.5-6.0); WHITE BLOOD COUNT (AUTO) 4.1 K/uL (4.3-11.0)
[2021-09-01 16:27] LABS: CALCIUM, SERUM 9.7 mg/dL (8.5-10.1); MAGNESIUM 2.2 mg/dL (1.8-2.4); PHOSPHORUS 4.7 mg/dL (2.5-4.9)
[2021-09-01 17:04] LABS: BAND % (MANUAL) 1 % (0.0-5.0); LYMPHOCYTES % (MANUAL) 11 % (16-48); MONOCYTES % (MANUAL) 7 % (0-11.0); NEUTROPHILS % (MANUAL) 81 (42-76)
[2021-09-01 17:19] LABS: CREATININE 7.6 mg/dL (0.6-1.3)
[2021-09-01 20:00] VITALS: BP 142/99
[2021-09-02 08:01] VITALS: BP 154/100
[2021-09-02] MEDS: ASPIRIN EC 81 MG TABLET.DR PO SCH (08:19)
[2021-09-02] MEDS: CARVEDILOL 12.5 MG TABLET PO SCH ×3 (08:19→16:40)
[2021-09-02] MEDS: LOSARTAN POTASSIUM 50 MG TABLET PO SCH (08:20)
[2021-09-02 11:44] VITALS: BP 130/87
[2021-09-02] MEDS ORDERED: NITROGLYCERIN 0.4 MG/TAB BOTTLE SL ONE (12:30)
[2021-09-02] MEDS ORDERED: NITROGLYCERIN 0.4 MG/TAB BOTTLE ONE (12:48)
[2021-09-02] MEDS ORDERED: METOPROLOL TARTRATE INJ 5 MG/5 ML AMPUL ONE (12:48)
[2021-09-02] MEDS ORDERED: IV NS 0.9% 250 ML IV ONE (12:49)
[2021-09-02] MEDS ORDERED: IOHEXOL-350 100 ML VIAL IV ONE (12:49)
[2021-09-02] MEDS: METOPROLOL TARTRATE INJ 5 MG/5 ML AMPUL IVP PRN ×2 (13:03→13:08)
[2021-09-02] MEDS: HYDROCODONE/APAP 5/325MG TABLET PO PRN (14:52)
[2021-09-02 15:52] VITALS: BP 130/90
[2021-09-02 16:52] LABS: BASOPHILS % (AUTO) 1.1 % (0.0-2.0); HEMATOCRIT 27 % (39-51); HEMOGLOBIN 9.2 g/dL (13.5-17.5); LYMPHOCYTES # (AUTO) 0.5 K/uL (0.8-4.8); LYMPHOCYTES % (AUTO) 11.2 % (20.0-44.0); MEAN CORPUSCULAR HGB CONC 34 g/dl (31.0-36.0); MEAN CORPUSCULAR VOLUME 103 fL (80-96); MONOCYTES # (AUTO) 0.5 K/uL (0.1-1.30); MONOCYTES % (AUTO) 12.6 % (2.0-12.0); NEUTROPHILS % (AUTO) 71.1 % (43.0-81.0); PLATELET COUNT (AUTO) 169 K/uL (150-450); RED BLOOD CELL COUNT(AUTO) 2.62 MIL/uL (4.5-6.0); WHITE BLOOD COUNT (AUTO) 4.3 K/uL (4.3-11.0)
[2021-09-02 17:32] LABS: CALCIUM, SERUM 8.7 mg/dL (8.5-10.1); MAGNESIUM 2.4 mg/dL (1.8-2.4); PHOSPHORUS 5.9 mg/dL (2.5-4.9); POTASSIUM 4.3 mmol/L (3.5-5.1)
[2021-09-02 17:40] LABS: CREATININE 9.8 mg/dL (0.6-1.3)
[2021-09-02 19:38] LABS: LYMPHOCYTES % (MANUAL) 12 % (16-48); MONOCYTES % (MANUAL) 7 % (0-11.0); NEUTROPHILS % (MANUAL) 81 (42-76)
[2021-09-02 20:00] VITALS: BP 131/90
[2021-09-02 20:13] VITALS: BP 131/90
[2021-09-03] VITALS: BP 123/83
[2021-09-03 00:17] VITALS: BP 123/83
[2021-09-03 08:13] VITALS: BP 138/100
[2021-09-03] MEDS: CARVEDILOL 12.5 MG TABLET PO SCH (08:27)
[2021-09-03 08:28] VITALS: BP 138/100
[2021-09-03] MEDS: ASPIRIN EC 81 MG TABLET.DR PO SCH (08:28)
[2021-09-03] MEDS: LOSARTAN POTASSIUM 50 MG TABLET PO SCH (08:28)
[2021-09-03] MEDS ORDERED: ALTEPLASE CATHFLO 2 MG/VIAL XX ONE (11:30)
== END 2021-09-03 12:40 | disposition home or self-care (01) | DRG 194 ==
LOC: ER 22:38 → TELE 08-31 00:45 → MED 09-03 08:31
PROVIDERS: ADMIT Student in an Organized Health Care Education/Training Program; ATTEND Nurse Practitioner Acute Care
PROC: 5A1D70Z Performance of Urinary Filtration, Intermittent, Less than 6 Hours Per Day (ICD-10-PCS; principal; 2021-09-01)
DX: I13.2 Hypertensive heart and chronic kidney disease with heart failure and with stage 5 chronic kidney disease, or end stage renal disease (principal); J96.01 Acute respiratory failure with hypoxia; I21.A1 Myocardial infarction type 2; I31.3 Pericardial effusion (noninflammatory); E87.1 Hypo-osmolality and hyponatremia; D63.8 Anemia in other chronic diseases classified elsewhere; N18.6 End stage renal disease; R18.8 Other ascites; D53.9 Nutritional anemia, unspecified; E87.6 Hypokalemia; F17.210 Nicotine dependence, cigarettes, uncomplicated; I50.23 Acute on chronic systolic (congestive) heart failure; Z20.822 Contact with and (suspected) exposure to COVID-19; I25.2 Old myocardial infarction; Z99.2 Dependence on renal dialysis
CPT/HCPCS: 36415; 71045-TC; 75574; 76604-TC; 80048-TC; 80076-TC; 83735-TC; 83880; 84100-TC; 84484-TC; 85025-TC; 85730-TC; 87081-TC; 90935-TC; C9803; G0378; J0360; J2270; J2997; J3490; J7030; J7050; Q9967